=== PATIENT | female | born 1945 | race Caucasian/White ===

== ENCOUNTER 2016-11-05 13:09 | Outpatient (CLI) | payer MEDICARE, OTHER | END 2016-11-05 13:10 | disposition critical access hospital (66) | DX: R06.02 Shortness of breath (principal); R42 Dizziness and giddiness | CPT/HCPCS: A0425; A0427 ==

== ENCOUNTER 2016-11-05 13:26 | Inpatient (IN) | payer MEDICARE, OTHER ==
[2016-11-05] MEDS ORDERED: ASPIRIN CHEW 81 MG TABLET PO STA (13:29)
[2016-11-05] MEDS ORDERED: ASPIRIN CHEW 81 MG TABLET ONE (13:32)
[2016-11-05] MEDS ORDERED: MAGNESIUM OXIDE 400 MG TABLET PO ONE ×2 (15:15→15:40)
[2016-11-05] MEDS ORDERED: POTASSIUM BICARB 25 MEQ TABLET PO STA (15:15)
[2016-11-05] MEDS ORDERED: cefTRIAXone 1 GM in SODIUM CHLORIDE 0.9% MINIBAG 100 ML IV STA (15:25)
[2016-11-05] MEDS ORDERED: cefTRIAXone 1 GM VIAL ONE (15:40)
[2016-11-05] MEDS ORDERED: POTASSIUM BICARB 25 MEQ TABLET PO ONE (15:40)
[2016-11-05] MEDS ORDERED: HYDROcod/ACETAM 5/325 MG TABLET PO PRN (15:55)
[2016-11-05] MEDS ORDERED: FUROSEMIDE 40 MG/4 ML VIAL IVP STA (15:55)
[2016-11-05] MEDS ORDERED: MORPHINE 2 MG/ML SYRINGE IVP PRN (15:55)
[2016-11-05] MEDS ORDERED: FUROSEMIDE 20 MG/2 ML VIAL IVP ONE (17:04)
[2016-11-05] MEDS: WARFARIN 2.5 MG TABLET PO SCH (17:11)
[2016-11-05] MEDS: ATORVASTATIN 10 MG TABLET PO SCH (20:10)
[2016-11-05] MEDS: SODIUM CHLORIDE FLUSH 0.9% 10 ML SYRINGE IVP SCH (20:44)
[2016-11-05] MEDS ORDERED: ENOXAPARIN 100 MG/ML SYRINGE SUBQ SCH (21:00)
[2016-11-06] MEDS: SODIUM CHLORIDE FLUSH 0.9% 10 ML SYRINGE IVP SCH ×3 (07:21→22:22)
[2016-11-06] MEDS ORDERED: ENOXAPARIN 100 MG/ML SYRINGE SUBQ SCH ×2 (09:00→21:00)
[2016-11-06] MEDS ORDERED: ENOXAPARIN 40 MG/0.4 ML SYRINGE SUBQ SCH (09:00)
[2016-11-06] MEDS ORDERED: ASPIRIN 325 MG TABLET PO SCH (09:00)
[2016-11-06] MEDS ORDERED: ENOXAPARIN 80 MG/0.8 ML SYRINGE SUBQ SCH (09:00)
[2016-11-06] MEDS ORDERED: hydroCHLOROthiazide 25 MG TABLET PO SCH (09:00)
[2016-11-06] MEDS: ASPIRIN CHEW 81 MG TABLET PO SCH (09:51)
[2016-11-06] MEDS: CHOLECALCIFEROL 1,000 UNIT TABLET PO SCH (09:51)
[2016-11-06] MEDS: POLYETHYLENE GLYCOL 3350 17 GM PACKET PO SCH (09:52)
[2016-11-06] MEDS ORDERED: POTASSIUM CHLORIDE 20 MEQ TABLET PO SCH (15:00)
[2016-11-06] MEDS: WARFARIN 2.5 MG TABLET PO SCH (15:00)
[2016-11-06] MEDS: ACETAMINOPHEN 325 MG TABLET PO PRN (15:00)
[2016-11-06] MEDS: SODIUM CHLORIDE FLUSH 0.9% 10 ML SYRINGE IVP PRN (17:32)
[2016-11-06] MEDS: HEPARIN 25,000 UNITS/500 ML 500 ML IV SCH (19:51)
[2016-11-06] MEDS ORDERED: HEPARIN 5,000 UNIT/ML VIAL IVP ONE (20:00)
[2016-11-06] MEDS: ATORVASTATIN 10 MG TABLET PO SCH (22:53)
[2016-11-07] MEDS: ACETAMINOPHEN 325 MG TABLET PO PRN ×3 (00:16→21:16)
[2016-11-07] MEDS: ONDANSETRON ODT 4 MG TABLET TL PRN ×2 (00:17→21:16)
[2016-11-07] MEDS: LORazepam 0.5 MG TABLET PO PRN (05:00)
[2016-11-07] MEDS: HEPARIN 25,000 UNITS/500 ML 500 ML IV SCH ×2 (06:15→23:46)
[2016-11-07] MEDS: FUROSEMIDE 40 MG/4 ML VIAL IVP SCH ×2 (06:24→13:35)
[2016-11-07] MEDS: SODIUM CHLORIDE FLUSH 0.9% 10 ML SYRINGE IVP SCH ×3 (06:31→23:27)
[2016-11-07] MEDS: CHOLECALCIFEROL 1,000 UNIT TABLET PO SCH (08:49)
[2016-11-07] MEDS: ASPIRIN CHEW 81 MG TABLET PO SCH (08:51)
[2016-11-07] MEDS: POLYETHYLENE GLYCOL 3350 17 GM PACKET PO SCH (08:51)
[2016-11-07] MEDS: NIFEdipine ER 30 MG TABLET PO SCH (13:35)
[2016-11-07] MEDS: WARFARIN 2.5 MG TABLET PO SCH (13:35)
[2016-11-07] MEDS: SODIUM CHLORIDE FLUSH 0.9% 10 ML SYRINGE IVP PRN (13:36)
[2016-11-07] MEDS: WARFARIN 5 MG TABLET PO SCH (17:47)
[2016-11-07] MEDS: ATORVASTATIN 10 MG TABLET PO SCH (21:16)
[2016-11-08] MEDS: LORazepam 0.5 MG TABLET PO PRN (00:29)
[2016-11-08] MEDS ORDERED: MAGNESIUM SULFATE 2 GRAM 50 ML IV ONE ×2 (01:00→17:00)
[2016-11-08] MEDS ORDERED: POTASSIUM CHLORIDE 20 MEQ TABLET PO SCH (05:37)
[2016-11-08] MEDS: FUROSEMIDE 40 MG/4 ML VIAL IVP SCH ×2 (05:50→13:24)
[2016-11-08] MEDS: SODIUM CHLORIDE FLUSH 0.9% 10 ML SYRINGE IVP SCH ×3 (05:54→21:05)
[2016-11-08] MEDS: SODIUM CHLORIDE FLUSH 0.9% 10 ML SYRINGE IVP PRN (05:54)
[2016-11-08] MEDS: CHOLECALCIFEROL 1,000 UNIT TABLET PO SCH (09:12)
[2016-11-08] MEDS: ASPIRIN CHEW 81 MG TABLET PO SCH (09:13)
[2016-11-08] MEDS: NIFEdipine ER 30 MG TABLET PO SCH (09:13)
[2016-11-08] MEDS: POLYETHYLENE GLYCOL 3350 17 GM PACKET PO SCH (09:15)
[2016-11-08] MEDS: WARFARIN 5 MG TABLET PO SCH (13:24)
[2016-11-08] MEDS ORDERED: MAGNESIUM SULFATE 1 GM in SODIUM CHLORIDE 0.9% 50 ML IV ONE (16:39)
[2016-11-08] MEDS: ONDANSETRON ODT 4 MG TABLET TL PRN (17:03)
[2016-11-08] MEDS: MAGNESIUM OXIDE 400 MG TABLET PO SCH (17:03)
[2016-11-08] MEDS: BUTALB/ACETAM/CAFF 50/325/40MG TABLET PO PRN (17:03)
[2016-11-08] MEDS: ATORVASTATIN 10 MG TABLET PO SCH (21:02)
[2016-11-09] MEDS ORDERED: MAGNESIUM SULFATE 2 GRAM 50 ML IV ONE (01:00)
[2016-11-09] MEDS: SODIUM CHLORIDE FLUSH 0.9% 10 ML SYRINGE IVP PRN ×2 (01:02→06:31)
[2016-11-09] MEDS: FUROSEMIDE 40 MG/4 ML VIAL IVP SCH (06:30)
[2016-11-09] MEDS: PANTOPRAZOLE 40 MG TABLET PO SCH (06:30)
[2016-11-09] MEDS: SODIUM CHLORIDE FLUSH 0.9% 10 ML SYRINGE IVP SCH ×3 (06:31→20:32)
[2016-11-09] MEDS: MAGNESIUM OXIDE 400 MG TABLET PO SCH (08:06)
[2016-11-09] MEDS: NIFEdipine ER 30 MG TABLET PO SCH (08:34)
[2016-11-09] MEDS: CHOLECALCIFEROL 1,000 UNIT TABLET PO SCH (08:34)
[2016-11-09] MEDS: ASPIRIN CHEW 81 MG TABLET PO SCH (08:34)
[2016-11-09] MEDS: POLYETHYLENE GLYCOL 3350 17 GM PACKET PO SCH (08:34)
[2016-11-09] MEDS: ASPIRIN EC 81 MG TABLET PO SCH (08:34)
[2016-11-09] MEDS: ONDANSETRON ODT 4 MG TABLET TL PRN (12:04)
[2016-11-09] MEDS: WARFARIN 5 MG TABLET PO SCH (15:06)
[2016-11-09] MEDS: POTASSIUM CHLORIDE 20 MEQ TABLET PO SCH (17:22)
[2016-11-09] MEDS: ATORVASTATIN 10 MG TABLET PO SCH (20:32)
[2016-11-09] MEDS: BUTALB/ACETAM/CAFF 50/325/40MG TABLET PO PRN (22:13)
[2016-11-10] MEDS: SODIUM CHLORIDE FLUSH 0.9% 10 ML SYRINGE IVP SCH ×2 (06:29→14:05)
[2016-11-10] MEDS: PANTOPRAZOLE 40 MG TABLET PO SCH (06:29)
[2016-11-10] MEDS ORDERED: POTASSIUM CHLORIDE 20 MEQ TABLET PO SCH (08:00)
[2016-11-10] MEDS: NIFEdipine ER 30 MG TABLET PO SCH (09:03)
[2016-11-10] MEDS: MAGNESIUM OXIDE 400 MG TABLET PO SCH (09:03)
[2016-11-10] MEDS: POTASSIUM CHLORIDE 20 MEQ TABLET PO SCH (09:03)
[2016-11-10] MEDS: CHOLECALCIFEROL 1,000 UNIT TABLET PO SCH (09:04)
[2016-11-10] MEDS: ASPIRIN EC 81 MG TABLET PO SCH (09:04)
[2016-11-10] MEDS: ASPIRIN CHEW 81 MG TABLET PO SCH (09:05)
[2016-11-10] MEDS: POLYETHYLENE GLYCOL 3350 17 GM PACKET PO SCH (09:06)
[2016-11-10] MEDS: WARFARIN 5 MG TABLET PO SCH (14:18)
== END 2016-11-10 14:44 | disposition home or self-care (01) | DRG 312 ==
DX: R55 Syncope and collapse (principal); I50.9 Heart failure, unspecified; I50.23 Acute on chronic systolic (congestive) heart failure; N28.9 Disorder of kidney and ureter, unspecified; E78.00 Pure hypercholesterolemia, unspecified; E66.9 Obesity, unspecified; Z68.34 Body mass index [BMI] 34.0-34.9, adult; Z86.73 Personal history of transient ischemic attack (TIA), and cerebral infarction without residual deficits; I26.99 Other pulmonary embolism without acute cor pulmonale; N17.9 Acute kidney failure, unspecified; E87.3 Alkalosis; I48.91 Unspecified atrial fibrillation; I27.2 Other secondary pulmonary hypertension; E87.6 Hypokalemia; E78.5 Hyperlipidemia, unspecified; I69.398 Other sequelae of cerebral infarction; R26.89 Other abnormalities of gait and mobility; M41.9 Scoliosis, unspecified; Z66 Do not resuscitate; Z79.82 Long term (current) use of aspirin

== ENCOUNTER 2016-12-04 09:58 | Outpatient (CLI) | payer MEDICARE, OTHER | END 2016-12-04 09:59 | disposition home or self-care (01) | DX: I26.99 Other pulmonary embolism without acute cor pulmonale (principal); I10 Essential (primary) hypertension; I48.91 Unspecified atrial fibrillation ==

== ENCOUNTER 2017-02-28 08:25 | Outpatient (CLI) | payer MEDICARE, OTHER ==
[2017-02-28 13:26] LABS: BASOPHILS % (AUTO) 0.9 %; EOSINOPHILS # (AUTO) 0.1 10^3/uL (0.0-0.7); EOSINOPHILS % (AUTO) 2.7 %; HCT - HEMATOCRIT 39.7 % (37.0-47.0); HGB - HEMOGLOBIN 13.1 g/dL (12.0-16.0); LYMPHOCYTES # (AUTO) 0.9 10^3/uL (1.5-3.5); LYMPHOCYTES % (AUTO) 27.3 %; MEAN CORPUSCULAR HEMOGLOBIN 31.4 pg (27.0-31.0); MEAN CORPUSCULAR VOLUME 95.2 fL (81.0-99.0); MONOCYTES # (AUTO) 0.3 10^3/uL (0.0-1.0); MONOCYTES % (AUTO) 8.4 %; NEUTROPHILS % (AUTO) 60.7 %; RED BLOOD COUNT 4.17 10^6/uL (4.20-5.40); RED CELL DISTRIBUTION WIDTH 14.8 % (12.0-15.0); UNCORRECTED WHITE BLOOD COUNT 3.3 x10^3/uL; WHITE BLOOD COUNT 3.3 x10^3/uL (4.8-10.8)
[2017-02-28 14:20] LABS: ALBUMIN/GLOBULIN RATIO 1.2 (1.0-2.2); BILIRUBIN,TOTAL 0.8 mg/dL (0.2-1.0); BUN - BLOOD UREA NITROGEN 22 mg/dL (6-20); CALCIUM 9.3 mg/dL (8.5-10.3); CARBON DIOXIDE - CO2 34 mmol/L (21-32); CHLORIDE 99 mmol/L (101-111); CHOL/HDL RATIO 3.8 (<4.4); CHOLESTEROL 170 mg/dL; CREATININE 1.1 mg/dL (0.4-1.0); GFR - MDRD 49 (>89); GLUCOSE 102 mg/dL (70-100); HDL CHOLESTEROL 45 mg/dL; LDL/HDL RATIO 2.5 (<4.4); SODIUM 140 mmol/L (135-145); TOTAL PROTEIN 6.3 g/dL (6.7-8.2); TRIGLYCERIDES 55 mg/dL; VLDL CHOLESTEROL 11 mg/dL
== END 2017-02-28 08:26 | disposition home or self-care (01) ==
LOC: LAB.WCP 08:25
PROVIDERS: ATTEND Family Medicine
DX: I10 Essential (primary) hypertension (principal); E78.5 Hyperlipidemia, unspecified
CPT/HCPCS: 36415; 80053; 80061; 85025

== ENCOUNTER 2017-11-07 08:00 | Outpatient (CLI) | payer MEDICARE, OTHER ==
[2017-11-07 12:23] LABS: BASOPHILS % (AUTO) 0.9 %; EOSINOPHILS # (AUTO) 0.1 10^3/uL (0.0-0.7); HGB - HEMOGLOBIN 13.8 g/dL (12.0-16.0); LYMPHOCYTES # (AUTO) 1.1 10^3/uL (1.5-3.5); LYMPHOCYTES % (AUTO) 31.4 %; MEAN CORPUSCULAR HEMOGLOBIN 29.6 pg (27.0-31.0); MEAN CORPUSCULAR HGB CONC 32.4 g/dL (32.0-36.0); MEAN CORPUSCULAR VOLUME 91.3 fL (81.0-99.0); MEAN PLATELET VOLUME 7.9 fL (7.9-10.8); MONOCYTES # (AUTO) 0.3 10^3/uL (0.0-1.0); MONOCYTES % (AUTO) 8.9 %; NEUTROPHILS % (AUTO) 54.8 %; PLT - PLATELET COUNT 138 10^3/uL (130-450); RED BLOOD COUNT 4.66 10^6/uL (4.20-5.40); RED CELL DISTRIBUTION WIDTH 14.5 % (12.0-15.0); WHITE BLOOD COUNT 3.6 x10^3/uL (4.8-10.8)
[2017-11-07 12:26] LABS: CREATININE 1.4 mg/dL (0.4-1.0)
[2017-11-07 12:43] LABS: INR 2.3 (0.8-1.2); PT - PROTHROMBIN TIME 25.4 secs (9.9-12.6)
== END 2017-11-07 08:01 | disposition home or self-care (01) ==
LOC: LAB.WCP 08:00
PROVIDERS: ATTEND Specialist
DX: I27.20 Pulmonary hypertension, unspecified (principal); I48.0 Paroxysmal atrial fibrillation; I61.9 Nontraumatic intracerebral hemorrhage, unspecified; J96.11 Chronic respiratory failure with hypoxia
CPT/HCPCS: 36415; 80048; 85025; 85610; 85730

== ENCOUNTER 2018-06-26 13:17 | Outpatient (CLI) | payer MEDICARE, OTHER ==
[2018-06-26 19:08] LABS: INR 2.5 (0.8-1.2); PT - PROTHROMBIN TIME 28.2 secs (9.9-12.6)
== END 2018-06-26 13:18 ==
LOC: LAB.WCP 13:17
PROVIDERS: ATTEND Family Medicine
DX: I26.99 Other pulmonary embolism without acute cor pulmonale (principal); Z79.01 Long term (current) use of anticoagulants; I48.91 Unspecified atrial fibrillation
CPT/HCPCS: 36415; 85610

== ENCOUNTER 2018-12-30 08:00 | Outpatient (CLI) | payer MEDICARE, OTHER | END 2018-12-30 08:01 | disposition home or self-care (01) | LOC: LAB.WCP 08:00 | PROVIDERS: ATTEND Family Medicine | DX: I48.91 Unspecified atrial fibrillation (principal); I26.99 Other pulmonary embolism without acute cor pulmonale; Z79.01 Long term (current) use of anticoagulants ==

== ENCOUNTER 2019-02-03 08:00 | Outpatient (CLI) | payer MEDICARE, OTHER | END 2019-02-03 08:01 | disposition home or self-care (01) | LOC: LAB.WCP 08:00 | PROVIDERS: ATTEND Family Medicine | DX: I26.99 Other pulmonary embolism without acute cor pulmonale (principal); I48.91 Unspecified atrial fibrillation; Z79.01 Long term (current) use of anticoagulants ==

== ENCOUNTER 2019-03-26 08:00 | Outpatient (CLI) | payer MEDICARE, OTHER | END 2019-03-26 23:59 | disposition home or self-care (01) | LOC: LAB.WCP 08:00 | PROVIDERS: ATTEND Family Medicine | DX: I26.99 Other pulmonary embolism without acute cor pulmonale (principal); I48.91 Unspecified atrial fibrillation; Z79.01 Long term (current) use of anticoagulants ==

== ENCOUNTER 2019-04-15 12:00 | Outpatient (CLI) | payer MEDICARE, OTHER ==
[2019-04-15 19:00] LABS: BASOPHILS % (AUTO) 0.8 %; EOSINOPHILS % (AUTO) 1.1 %; HGB - HEMOGLOBIN 13.1 g/dL (12.0-16.0); LYMPHOCYTES # (AUTO) 0.9 10^3/uL (1.5-3.5); LYMPHOCYTES % (AUTO) 23.6 %; MEAN CORPUSCULAR HEMOGLOBIN 30.8 pg (27.0-31.0); MEAN CORPUSCULAR HGB CONC 31.3 g/dL (32.0-36.0); MEAN CORPUSCULAR VOLUME 98.6 fL (81.0-99.0); MEAN PLATELET VOLUME 11.5 fL (7.9-10.8); MONOCYTES # (AUTO) 0.2 10^3/uL (0.0-1.0); MONOCYTES % (AUTO) 5.8 %; NEUTROPHILS # (AUTO) 2.4 10^3/uL (1.5-6.6); NEUTROPHILS % (AUTO) 67.9 %; PLT - PLATELET COUNT 77 10^3/uL (130-450); RED BLOOD COUNT 4.25 10^6/uL (4.20-5.40); RED CELL DISTRIBUTION WIDTH 16.5 % (12.0-15.0); WHITE BLOOD COUNT 3.6 x10^3/uL (4.8-10.8)
[2019-04-15 19:08] LABS: ALBUMIN 3.4 g/dL (3.2-5.5); ALBUMIN/GLOBULIN RATIO 1.4 (1.0-2.2); ALKALINE PHOSPHATASE 39 IU/L (42-121); ALT ALANINE AMINOTRANSFERASE 14 IU/L (10-60); AST ASPARTATE AMINOTRANSFERASE 24 IU/L (10-42); BILIRUBIN,TOTAL 1.5 mg/dL (0.2-1.0); BUN - BLOOD UREA NITROGEN 15 mg/dL (6-20); CALCIUM 8.9 mg/dL (8.5-10.3); CARBON DIOXIDE - CO2 28 mmol/L (21-32); CHLORIDE 104 mmol/L (101-111); CHOL/HDL RATIO 2.9 (<4.4); CHOLESTEROL 123 mg/dL; CREATININE 1.2 mg/dL (0.4-1.0); GFR - MDRD 44 (>89); GLUCOSE 134 mg/dL (70-100); HDL CHOLESTEROL 42 mg/dL; LDL CHOLESTEROL,CALCULATED 65 mg/dL; LDL/HDL RATIO 1.5 (<4.4); SODIUM 139 mmol/L (135-145); TOTAL PROTEIN 5.8 g/dL (6.7-8.2); VLDL CHOLESTEROL 16 mg/dL
[2019-04-15 19:50] LABS: HB2 TOTAL 12.7 g/dL; HEMOGLOBIN A1C 0.5 g/dL; HEMOGLOBIN A1C % 5.8 % (4.6-6.2)
== END 2019-04-15 23:59 | disposition home or self-care (01) ==
LOC: LAB.WCP 12:00
PROVIDERS: ATTEND Family Medicine
DX: I10 Essential (primary) hypertension (principal); R73.02 Impaired glucose tolerance (oral); E78.5 Hyperlipidemia, unspecified; R94.6 Abnormal results of thyroid function studies
CPT/HCPCS: 36415; 80053; 80061; 83036; 83721; 84443; 85025

== ENCOUNTER 2019-05-20 02:03 | Outpatient (CLI) | payer MEDICARE, OTHER | END 2019-05-20 02:04 | disposition critical access hospital (66) | LOC: EMS 02:03 | PROVIDERS: ATTEND Surgery | DX: M25.562 Pain in left knee (principal); W18.39XA Other fall on same level, initial encounter; Y93.01 Activity, walking, marching and hiking; Y92.009 Unspecified place in unspecified non-institutional (private) residence as the place of occurrence of the external cause; Z79.01 Long term (current) use of anticoagulants | CPT/HCPCS: A0425; A0429 ==

== ENCOUNTER 2019-05-20 02:22 | Emergency (ER) | payer MEDICARE, OTHER ==
--- NOTE | 2019-05-20 02:32 | ED Physician Documentation ---
PD HPI HEAD INJURY - Stated complaint Stated Complaint: WEAKNESS/FALL - Chief complaint Chief Complaint: Neuro - History obtained from History obtained from: Patient, EMS - History of Present Illness Mechanism of head injury: Fell Where head injury occurred: Home Timing - onset: Today Location of injury: Left, Front Quality of pain: Pain, Throbbing Associated symptoms: No: LOC, AMS, Amnesia, Nausea / vomiting, Neck pain, Paresthesias, Seizures, Ear drainage, Nasal drainage Symptoms improve with: Rest Symptoms worsen with: Palpation, Movement Contributing factors: Anticoagulated Similar symptoms before: Has not had sx before Recently seen: Not recently seen - Additional information Additional information: 73 y/o female with a history of CHF, Afib and pulmonary hypertension and who is on coumadin was in her kitchen when she fell and could not get up. She called 911 for a lift assist and she was transported when she was discovered to have a head injury and she is on coumdin. She does have a bruise to the left catholic but has no LOC and no neck pain. She did injure her left knee but is able to ambulat e on this. She states that she has become weaker and she is having more trouble standing for any length of time. She has not been able to feed herself this week because of the weakness. She has discussed hospice with her PMD. She is on oxygen at home and sleeps in a recliner. Review of Systems Constitutional: reports: Myalgias, Fatigue. denies: Fever Eyes: denies: Decreased vision Ears: denies: Ear pain Nose: denies: Rhinorrhea / runny nose, Congestion Throat: denies: Sore throat Cardiac: denies: Chest pain / pressure, Palpitations Respiratory: reports: Dyspnea. denies: Cough GI: denies: Abdominal Pain, Nausea, Vomiting : denies: Dysuria, Frequency Skin: denies: Rash Musculoskeletal: reports: Extremity swelling, Pain with weight bearing. denies: Neck pain, Back pain Neurologic: reports: Generalized weakness. denies: Focal weakness, Numbness PD PAST MEDICAL HISTORY - Past Medical History Past Medical History: Yes Cardiovascular: None Respiratory: Asthma, Shortness of breath Endocrine/Autoimmune: HyPOthyroidism GI: None : None HEENT: Chronic vision loss Psych: None Musculoskeletal: Scoliosis Derm: None - Past Surgical History Past Surgical History: Yes HEENT: Tonsil/Adenoidectomy - Present Medications Home Medications: Ambulatory Orders Medication Instructions Recorded Confirmed Aspirin 325 mg PO DAILY 11/05/16 11/05/16 Cholecalciferol (Vitamin D3) 4,000 unit PO DAILY 11/05/16 11/05/16 [Vitamin D3] Multivitamin [Multiple Vitamins] 1 each PO DAILY 11/05/16 11/05/16 Simvastatin 20 mg PO QPM 11/05/16 11/05/16 hydroCHLOROthiazide 25 mg PO DAILY 11/05/16 11/05/16 [Hydrochlorothiazide] Warfarin Sodium [Coumadin] 2 mg PO DAILY PM #30 tablet 11/10/16 - Allergies Allergies/Adverse Reactions: Allergies Allergy/AdvReac Type Severity Reaction Status Date / Time Penicillins Allergy Unknown Verified 11/05/16 13:34 - Social History Does the pt smoke?: No Smoking Status: Never smoker Does the pt drink ETOH?: No Does the pt have substance abuse?: No - Immunizations Immunizations are current?: Yes PD ED PE NORMAL - Vitals Vital signs reviewed: Yes (tachy and hypotensive ) - General General: Alert and oriented X 3, No acute distress, Well developed/nourished - HEENT HEENT: Atraumatic, PERRL, EOMI - Neck Neck: Supple, no meningeal sign - Cardiac Cardiac: No murmur, Other (tachy to 100) - Respiratory Respiratory: No respiratory distress, Clear bilaterally - Abdomen Abdomen: Soft, Non tender - Back Back: No CVA TTP, No spinal TTP - Derm Derm: Normal color, Warm and dry, No rash - Extremities Extremities: No deformity, Other (There is suasage legs bilat and symetric and there is no erythema. The knee is tender both medial and lateral with some mild ligamentous laxity. 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 storage architect 2-12 intact, No motor deficit, No sensory deficit, Normal speech Eye Opening: Spontaneous Motor: Obeys Commands Verbal: Oriented GCS Score: 15 - Psych Psych: Normal mood, Normal affect Results - Vitals Vitals: Vital Signs - 24 hr 05/20/19 05/20/19 05/20/19 02:24 04:30 04:36 Temperature 36.4 C L Heart Rate 107 H 103 H 102 H Respiratory 18 25 H 18 Rate Blood Pressure 111/59 L 120/82 H O2 Saturation 94 94 96 05/20/19 05/20/19 05/20/19 06:00 07:15 07:54 Temperature 35.9 C L Heart Rate 87 95 93 Respiratory 17 24 22 Rate Blood Pressure 90/67 104/80 92/70 O2 Saturation 97 100 98 Oxygen O2 Source Nasal cannula Oxygen Flow Rate 4 - Labs Labs: Laboratory Tests 05/20/19 05/20/19 05/20/19 02:31 02:31 02:31 WBC 4.5 L RBC 4.04 L Hgb 12.4 Hct 40.0 MCV 99.0 MCH 30.7 MCHC 31.0 L RDW 17.7 H Plt Count 73 L MPV 10.3 Neut # (Auto) 3.1 Lymph # (Auto) 0.9 L Keith # (Auto) 0.3 Eos # (Auto) 0.0 Baso # (Auto) 0.0 Absolute Nucleated RBC 0.02 Nucleated RBC % 0.4 PT 24.9 H INR 2.3 H Sodium 139 Potassium 4.5 Chloride 101 Carbon Dioxide 25 Anion Gap 13.0 BUN 24 H Creatinine 1.5 H Estimated GFR (MDRD) 34 L Glucose 127 H Calcium 9.4 Total Bilirubin 1.8 H AST 37 ALT 23 Alkaline Phosphatase 37 L Total Protein 5.5 L Albumin 3.4 Globulin 2.1 Albumin/Globulin Ratio 1.6 Lipase 25 Urine Color Urine Clarity Urine pH Ur Specific Rulo Urine Protein Urine Glucose (UA) Urine Ketones Urine Occult Blood Urine Nitrite Urine Bilirubin Urine Urobilinogen Ur Leukocyte Esterase Urine RBC Urine WBC Ur Squamous Epith Cells Urine Crystals Urine Bacteria Urine Casts Urine Yeast Ur Microscopic Review Urine Culture Comments 05/20/19 04:25 WBC RBC Hgb Hct MCV MCH MCHC RDW Plt Count MPV Neut # (Auto) Lymph # (Auto) Keith # (Auto) Eos # (Auto) Baso # (Auto) Absolute Nucleated RBC Nucleated RBC % PT INR Sodium Potassium Chloride Carbon Dioxide Anion Gap BUN Creatinine Estimated GFR (MDRD) Glucose Calcium Total Bilirubin AST ALT Alkaline Phosphatase Total Protein Albumin Globulin Albumin/Globulin Ratio Lipase Urine Color DARK YELLOW Urine Clarity SL. CLOUDY Urine pH 5.5 Ur Specific Rulo >=1.030 H Urine Protein 100 H Urine Glucose (UA) NEGATIVE Urine Ketones TRACE Urine Occult Blood LARGE H Urine Nitrite NEGATIVE Urine Bilirubin NEGATIVE Urine Urobilinogen 1 (NORMAL) Ur Leukocyte Esterase TRACE H Urine RBC TNTC H Urine WBC 4-5 Ur Squamous Epith Cells FEW Squamous Urine Crystals 3-5 Calcium Oxalate Urine Bacteria Few Urine Casts 0-2 Hyaline Casts Urine Yeast PRESENT Ur Microscopic Review INDICATED Urine Culture Comments INDICATED - Rads (name of study) CT head Radiology: Prelim report reviewed (Impression: 1. No acute intercranial hemorrhage, skull fracture, or other acute intracranial abnormality.2 Mild atrophy and chronic small vessel ischemic disease. 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 She is not safe to care for herself at home. I have asked the patient to stay to talk to the social work associate this morning about help at home. She is receptive to this. Her brother who usually comes to check on her will be out of town until later this week. Departure - Departure Disposition: 01 Home, Self Care Clinical Impression: Head injury Qualifiers: Encounter type: initial encounter Qualified Code(s): S09.90XA - Unspecified injury of head, initial encounter Left knee sprain Qualifiers: Encounter type: initial encounter Involved ligament of knee: unspecified ligament Qualified Code(s): S83.92XA - Sprain of unspecified site of left knee, initial encounter Condition: Stable Instructions: ED Head Injury Closed, ED Sprain Knee Follow-Up: Haile Flores MD [Primary Care Provider] -
[2019-05-20 02:40] LABS: BASOPHILS % (AUTO) 0.9 %; EOSINOPHILS % (AUTO) 0.4 %; HGB - HEMOGLOBIN 12.4 g/dL (12.0-16.0); LYMPHOCYTES # (AUTO) 0.9 10^3/uL (1.5-3.5); LYMPHOCYTES % (AUTO) 20.9 %; MEAN CORPUSCULAR HEMOGLOBIN 30.7 pg (27.0-31.0); MEAN PLATELET VOLUME 10.3 fL (7.9-10.8); MONOCYTES # (AUTO) 0.3 10^3/uL (0.0-1.0); MONOCYTES % (AUTO) 7.4 %; NEUTROPHILS # (AUTO) 3.1 10^3/uL (1.5-6.6); NEUTROPHILS % (AUTO) 69.3 %; PLT - PLATELET COUNT 73 10^3/uL (130-450); RED BLOOD COUNT 4.04 10^6/uL (4.20-5.40); RED CELL DISTRIBUTION WIDTH 17.7 % (12.0-15.0); WHITE BLOOD COUNT 4.5 x10^3/uL (4.8-10.8)
[2019-05-20 02:42] LABS: INR 2.3 (0.8-1.2); PT - PROTHROMBIN TIME 24.9 secs (9.9-12.6)
[2019-05-20 02:50] LABS: ALBUMIN 3.4 g/dL (3.2-5.5); ALBUMIN/GLOBULIN RATIO 1.6 (1.0-2.2); BILIRUBIN,TOTAL 1.8 mg/dL (0.2-1.0); CALCIUM 9.4 mg/dL (8.5-10.3); CREATININE 1.5 mg/dL (0.4-1.0); TOTAL PROTEIN 5.5 g/dL (6.7-8.2)
--- NOTE | 2019-05-20 03:30 | CT Report ---
Reason: fall head injury on coumadin Procedure Date: 05/20/2019 Accession Number: [id number] / [id number] Procedure: CT - HEAD WO CPT Code: FULL RESULT: EXAM: CT HEAD EXAM DATE: 05/20/2019 02:43 AM. CLINICAL HISTORY: Fall head injury on Coumadin. COMPARISON: HEAD 06/11/2010 2:23 PM. TECHNIQUE: Multiaxial CT images were obtained from the foramen magnum to the vertex. Reformats: Sagittal and coronal. IV contrast: None. In accordance with CT protocol optimization, one or more of the following dose reduction techniques were utilized for this exam: automated exposure control, adjustment of mA and/or KV based on patient size, or use of iterative reconstructive technique. FINDINGS: Parenchyma: No intraparenchymal hemorrhage. No evidence of mass, midline shift, or CT findings of infarction. Esparza-white differentiation is distinct. There is mild atrophy and scattered white matter changes which are likely attributable to chronic small vessel ischemic disease. 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 Extraaxial Spaces: Normal for age. No subdural or epidural collections identified. Ventricles: Normal in size and position. Sinuses and Orbits: Imaged paranasal sinuses, orbits, and mastoids show no significant abnormality. Bones: No evidence of fracture or calvarial defect. IMPRESSION: 1. No acute intracranial hemorrhage, skull fracture, or other acute intracranial abnormality. 2. Mild atrophy and chronic small vessel ischemic disease. 3. 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 RADIA
[2019-05-20 04:35] LABS: GLUCOSE, URINE (UA) NEGATIVE (NEGATIVE); KETONES,URINE (UA) TRACE mg/dL (NEGATIVE); LEUKOCYTE ESTERASE, URINE TRACE (NEGATIVE); NITRITE,URINE NEGATIVE (NEGATIVE); OCCULT BLOOD,URINE LARGE (NEGATIVE); PH,URINE 5.5 PH (5.0-7.5); PROTEIN,URINE 100 mg/dL (NEGATIVE); UROBILINOGEN,URINE 1 (NORMAL) E.U./dL (NORMAL)
[2019-05-20 04:46] LABS: BILIRUBIN,URINE NEGATIVE (NEGATIVE); CLARITY,URINE SL. CLOUDY (CLEAR); ICTOTEST,URINE NEGATIVE
[2019-05-20 04:56] LABS: BACTERIA,URINE Few /HPF (None Seen); CASTS, URINE 0-2 Hyaline Casts /LPF; CRYSTALS,URINE 3-5 Calcium Oxalate /LPF; RBC,URINE TNTC /HPF (0-5); SQUAMOUS EPITHELIAL CELL,UR FEW Squamous (<= Few); YEAST,URINE PRESENT
[2019-05-20] MEDS ORDERED: ACETAMINOPHEN 325 MG TABLET PO STA (07:56)
[2019-05-20 11:30] VITALS: BP 108/72
== END 2019-05-20 11:30 | disposition home or self-care (01) ==
LOC: EDUNIT# → ED 02:22
DX: S09.90XA Unspecified injury of head, initial encounter (principal); S83.92XA Sprain of unspecified site of left knee, initial encounter; S00.83XA Contusion of other part of head, initial encounter; W18.30XA Fall on same level, unspecified, initial encounter; Y92.000 Kitchen of unspecified non-institutional (private) residence as the place of occurrence of the external cause; I48.91 Unspecified atrial fibrillation; Z79.01 Long term (current) use of anticoagulants; Z79.82 Long term (current) use of aspirin; I50.9 Heart failure, unspecified; I27.20 Pulmonary hypertension, unspecified; J45.909 Unspecified asthma, uncomplicated; Z99.81 Dependence on supplemental oxygen
CPT/HCPCS: 36415; 70450; 80053; 81001; 83690; 85025; 85610; 87077; 87086; 87181; 99282; 99284; A9270; 81003

== ENCOUNTER 2019-05-23 16:16 | Outpatient (CLI) | payer MEDICARE, OTHER | END 2019-05-23 16:17 | disposition critical access hospital (66) | LOC: EMS 16:16 | PROVIDERS: ATTEND Surgery | DX: R09.89 Other specified symptoms and signs involving the circulatory and respiratory systems (principal); R53.1 Weakness | CPT/HCPCS: A0425; A0429 ==

== ENCOUNTER 2019-05-23 16:41 | Inpatient (IN) | payer MEDICARE, OTHER ==
[2019-05-23] MEDS ORDERED: FUROSEMIDE 40 MG/4 ML VIAL IVP STA (17:04)
--- NOTE | 2019-05-23 17:16 | ED Physician Documentation ---
History of Present Illness - Stated complaint Stated Complaint: WEAKNESS - Chief complaint Chief Complaint: General - History obtained from History obtained from: Patient, Family - History of Present Illness Timing: How many weeks ago (1) Pain level max: 4 Pain level now: 3 Improved by: Rest, oxygen Worsened by: Walking with a walker - Additonal information Additional information: 73-year-old female, lives at home alone. She states she has become increasingly weak over the past few weeks. Over the past few days is having difficulty even making it to her bathroom without being out of breath. She is normally on 2 L of home O2. She states her legs have had increased swelling during that time as well. Had a fall a few days ago. Negative head CT. She is on warfarin. No fevers. No cough. No vomiting. Review of Systems Ten Systems: 10 systems reviewed and negative Constitutional: denies: Fever, Chills Respiratory: reports: Dyspnea. denies: Cough GI: reports: Bloody / black stool (dark tarry stools for 2-3 weeks). 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 : None HEENT: Chronic vision loss Psych: None Musculoskeletal: Scoliosis Derm: None - Past Surgical History Past Surgical History: Yes General: Colonoscopy HEENT: Tonsil/Adenoidectomy - Present Medications Home Medications: Ambulatory Orders Medication Instructions Recorded Confirmed Aspirin 325 mg PO DAILY 11/05/16 11/05/16 Cholecalciferol (Vitamin D3) 4,000 unit PO DAILY 11/05/16 05/23/19 [Vitamin D3] Multivitamin [Multiple Vitamins] 1 each PO DAILY 11/05/16 05/23/19 Simvastatin 20 mg PO QPM 11/05/16 05/23/19 Ciprofloxacin HCl [Cipro] 500 mg PO BID 05/23/19 05/23/19 Warfarin Sodium [Coumadin] 2 mg PO TUTHSA@2100 05/23/19 05/23/19 Warfarin Sodium [Coumadin] 4 mg PO SUMOWEFR@2100 05/23/19 05/23/19 hydroCHLOROthiazide [Hydrodiuril] 12.5 mg PO DAILY 05/23/19 - Allergies Allergies/Adverse Reactions: Allergies Allergy/AdvReac Type Severity Reaction Status Date / Time Penicillins Allergy Unknown Verified 05/23/19 16:46 - Social History Does the pt smoke?: No Smoking Status: Never smoker Does the pt drink ETOH?: No Does the pt have substance abuse?: No - Immunizations Immunizations are current?: Yes - POLST Patient has POLST: No PD ED PE NORMAL - Vitals Vital signs reviewed: Yes - General General: Alert and oriented X 3, No acute distress, Well developed/nourished - HEENT HEENT: PERRL, Moist mucous membranes - Neck Neck: Supple, no meningeal sign - Cardiac Cardiac: RRR, Strong equal pulses - Respiratory Respiratory: No respiratory distress, Clear bilaterally - Abdomen Abdomen: Soft, Non tender, Non distended - Rectal Rectal: Other (diffuse skin breakdown, dark stool. Hemoccult positive. QC passed) - Derm Derm: Warm and dry - Extremities Extremities: No deformity, No tenderness to palpate, Other (Diffuse pitting edema with blistering. No signs of infection Diffuse ecchymosis to the left leg.) - Neuro Neuro: Alert and oriented X 3 - Psych Psych: Normal mood, Normal affect Results - Vitals Vitals: Vital Signs - 24 hr 05/23/19 05/23/19 05/23/19 16:41 18:29 19:00 Temperature 36.6 C Heart Rate 97 97 95 Respiratory 20 21 21 Rate Blood Pressure 90/60 95/65 96/70 O2 Saturation 91 L 97 97 05/23/19 05/23/19 19:30 20:00 Temperature Heart Rate 89 95 Respiratory 17 20 Rate Blood Pressure 95/58 L 98/69 O2 Saturation 99 96 Oxygen O2 Source Nasal cannula - Labs Labs: Laboratory Tests 05/23/19 05/23/19 05/23/19 17:21 17:21 17:21 WBC 5.6 RBC 2.94 L Hgb 9.4 L Hct 29.2 L MCV 99.3 H MCH 32.0 H MCHC 32.2 RDW 18.8 H Plt Count 72 L MPV 11.1 H Neut # (Auto) 4.8 Lymph # (Auto) 0.5 L Alpine # (Auto) 0.2 Eos # (Auto) 0.0 Baso # (Auto) 0.0 Absolute Nucleated RBC 0.08 Nucleated RBC % 1.4 PT 42.2 H INR 4.0 H Sodium 137 Potassium 4.9 Chloride 98 L Carbon Dioxide 26 Anion Gap 13.0 BUN 35 H Creatinine 1.5 H Estimated GFR (MDRD) 34 L Glucose 84 Lactic Acid Calcium 9.1 Total Bilirubin 2.7 H AST 65 H ALT 58 Alkaline Phosphatase 48 B-Natriuretic Peptide Total Protein 5.1 L Albumin 3.3 Globulin 1.8 L Albumin/Globulin Ratio 1.8 Lipase 27 05/23/19 05/23/19 17:21 17:21 WBC RBC Hgb Hct MCV MCH MCHC RDW Plt Count MPV Neut # (Auto) Lymph # (Auto) Alpine # (Auto) Eos # (Auto) Baso # (Auto) Absolute Nucleated RBC Nucleated RBC % PT INR Sodium Potassium Chloride Carbon Dioxide Anion Gap BUN Creatinine Estimated GFR (MDRD) Glucose Lactic Acid 1.5 Calcium Total Bilirubin AST ALT Alkaline Phosphatase B-Natriuretic Peptide 4218 H Total Protein Albumin Globulin Albumin/Globulin Ratio Lipase - Rads (name of study) cxr Radiology: Prelim report reviewed, EMP read contemporaneously, See rad report (Bibasilar airspace consolidation could reflect aspiration or infection. ) PD MEDICAL DECISION MAKING - ED course Complexity details: reviewed old records, reviewed results, re-evaluated patient, considered differential, d/w patient, d/w family, d/w acquisition consultant ED course: 73-year-old female presents to the emergency department with significant congestive heart failure, peripheral edema, bibasilar pneumonia, UTI and s upratherapeutic INR. Also has dark tarry stools with a significant drop in her hemoglobin over the past 3 days. She was given IV Lasix, Levaquin. Her prior urine culture was reviewed. I discussed the case with the hospitalist Dr. Sequeira who accepts. This document was made in part using voice recognition software. While efforts are made to proofread this document, sound alike and grammatical errors may occur. Departure - Departure Disposition: 66 [facility] DC/Xfer Clinical Impression: Supratherapeutic INR, Peripheral edema GI bleed Qualifiers: GI bleed type/associated pathology: melena Qualified Code(s): K92.1 - Melena Acute exacerbation of CHF (congestive heart failure) Qualifiers: Heart failure type: unspecified Qualified Code(s): I50.9 - Heart failure, unspecified Aspiration pneumonia Qualifiers: Aspiration pneumonia type: unspecified Laterality: bilateral Lung location: lower lobe of lung Qualified Code(s): J69.0 - Pneumonitis due to inhalation of food and vomit UTI (urinary tract infection) Qualifiers: Urinary tract infection type: acute cystitis Hematuria presence: without hematuria Qualified Code(s): N30.00 - Acute cystitis without hematuria Condition: Stable Discharge Date/Time: 05/23/19 20:54
[2019-05-23 17:37] LABS: PT - PROTHROMBIN TIME 42.2 secs (9.9-12.6)
--- NOTE | 2019-05-23 17:38 | XRAY Report ---
Reason: dyspnea Procedure Date: 05/23/2019 Accession Number: [id number] / [id number] Procedure: XR - Chest 1 View X-Ray CPT Code: 71239 FULL RESULT: EXAM: CHEST RADIOGRAPHY EXAM DATE: 05/23/2019 05:16 PM. CLINICAL HISTORY: Dyspnea. COMPARISON: CHEST 2 VIEW PA/LAT 11/05/2016 1:33 PM. TECHNIQUE: 1 view. FINDINGS: Lungs/Pleura: Bibasilar airspace consolidation could reflect aspiration or infection. Small left base pleural effusion is seen. No pneumothorax. Mediastinum: Stable heart size and mediastinum. Other: Thoracolumbar scoliosis noted. IMPRESSION: 1. Bibasilar airspace consolidation could reflect aspiration or infection. RAD[facility]
[2019-05-23 17:45] LABS: BASOPHILS % (AUTO) 0.2 %; HGB - HEMOGLOBIN 9.4 g/dL (12.0-16.0); LYMPHOCYTES # (AUTO) 0.5 10^3/uL (1.5-3.5); LYMPHOCYTES % (AUTO) 8.2 %; MEAN CORPUSCULAR HGB CONC 32.2 g/dL (32.0-36.0); MEAN CORPUSCULAR VOLUME 99.3 fL (81.0-99.0); MEAN PLATELET VOLUME 11.1 fL (7.9-10.8); MONOCYTES # (AUTO) 0.2 10^3/uL (0.0-1.0); MONOCYTES % (AUTO) 4.1 %; NEUTROPHILS # (AUTO) 4.8 10^3/uL (1.5-6.6); NEUTROPHILS % (AUTO) 86.6 %; PLT - PLATELET COUNT 72 10^3/uL (130-450); RED BLOOD COUNT 2.94 10^6/uL (4.20-5.40); RED CELL DISTRIBUTION WIDTH 18.8 % (12.0-15.0); WHITE BLOOD COUNT 5.6 x10^3/uL (4.8-10.8)
[2019-05-23 17:46] LABS: ALBUMIN 3.3 g/dL (3.2-5.5); ALBUMIN/GLOBULIN RATIO 1.8 (1.0-2.2); BILIRUBIN,TOTAL 2.7 mg/dL (0.2-1.0); CALCIUM 9.1 mg/dL (8.5-10.3); CREATININE 1.5 mg/dL (0.4-1.0); TOTAL PROTEIN 5.1 g/dL (6.7-8.2)
[2019-05-23] MEDS ORDERED: NYSTATIN POWDER 15 GM TOP STA (17:48)
[2019-05-23] MEDS ORDERED: levoFLOXacin 750 MG/150 ML 750 MG/150 ML BAG IV ONE (18:16)
[2019-05-23] MEDS ORDERED: FUROSEMIDE 20 MG/2 ML VIAL IVP STA (21:04)
[2019-05-23 21:45] LABS: BILIRUBIN,URINE NEGATIVE (NEGATIVE); GLUCOSE, URINE (UA) NEGATIVE (NEGATIVE); KETONES,URINE (UA) NEGATIVE (NEGATIVE); LEUKOCYTE ESTERASE, URINE NEGATIVE (NEGATIVE); NITRITE,URINE NEGATIVE (NEGATIVE); OCCULT BLOOD,URINE LARGE (NEGATIVE); PROTEIN,URINE NEGATIVE (NEGATIVE); UROBILINOGEN,URINE 0.2 (NORMAL) E.U./dL (NORMAL)
[2019-05-23 21:46] LABS: CLARITY,URINE HAZY (CLEAR)
--- NOTE | 2019-05-23 21:58 | HISTORY & PHYSICAL EXAMINATION ---
Chief Complaint - Chief Complaint Chief Complaint: weakness History of Present Illness - Admitted From [facility]mitted From:: [facility] ED - History Obtained From Records Reviewed: yes History obtained from: patient - History of Present Illness HPI Comment/Other: Patient admitted on 05/23/19 around 20:00pm Patient is a 73 y/o female who presented to the ED with complain of weakness. It was to the extent that she was unable to get up and go to the bathroom. She had fallen 2 days prior as a result of he weakness and presented to the ED. Work up at the time included a CT scan of her head which was unremarkable. She has a urine culture done on 05/20/19 which grew E faecium and Klebsiella. She was prescribed antibiotic by her PCP which she is yet to start. She denied chest pain, dyspnea, abd pain, nausea or vomiting. She complained of black stools. She is on coumadin for a history of PE. In the ED today she was found to have a BNP 4000, INR 4.0 and a SBP of 90. Her hemoglobin is 9. It was 12 three days prior. She has crackles on auscultation of her lungs and significant lower extremity edema with blisters on her feet. She has bruising on her left knee which is tender to palpation. As a result of her presentation and these lab findings, she is being admitted for further treatment. She had a right and left heart cath done in October of 2017 at [facility] by Dr Iesha Fonseca which showed a LVEF of 60%, PA pressure of 55. She was diagnosed with severe pulmonary artery hypertension and nonocclusive CAD. She says she has not been to see the adoption manager again because she was not willing to try the experimental drug proposed. She also has paroxysmal atrial fibrillation History - Past Medical History Cardiovascular: reports: Congestive heart failure, High cholesterol, Pulmonary embolism, Atrial fibrillation, Other (Pulmonary Hypertension, Cor pulmonale) Respiratory: reports: Asthma, Shortness of breath Neuro: reports: CVA Endocrine/Autoimmune: reports: HyPOthyroidism GI: reports: None FILLER SIFTER HELPER: reports: None : reports: None HEENT: reports: Chronic vision loss Psych: reports: None Musculoskeletal: reports: Scoliosis Derm: reports: None MRSA Hx?: No - Past Surgical History General: reports: Colonoscopy HEENT: reports: Tonsil/Adenoidectomy - Family & Social History Family History: Mother: CVA/TIA Social History Notes: She denies alcohol, tobacco or illicit drug use. - POLST Patient has POLST: No POLST Status: DNR Meds/Allgy - Home Medications Home Medications: Ambulatory Orders Medication Instructions Recorded Confirmed Aspirin 325 mg PO DAILY 11/05/16 11/05/16 Cholecalciferol (Vitamin D3) 4,000 unit PO DAILY 11/05/16 05/23/19 [Vitamin D3] Multivitamin [Multiple Vitamins] 1 each PO DAILY 11/05/16 05/23/19 Simvastatin 20 mg PO QPM 11/05/16 05/23/19 Ciprofloxacin HCl [Cipro] 500 mg PO BID 05/23/19 05/23/19 Warfarin Sodium [Coumadin] 2 mg PO TUTHSA@209905/23/19 05/23/19 Warfarin Sodium [Coumadin] 4 mg PO [id number]@209905/23/19 05/23/19 hydroCHLOROthiazide [Hydrodiuril] 12.5 mg PO DAILY 05/23/19 - Allergies Allergies/Adverse Reactions: Allergies Allergy/AdvReac Type Severity Reaction Status Date / Time Penicillins Allergy Unknown Verified 05/23/19 16:46 Review of Systems - Constitutional Constitutional: reports: Fatigue, Weakness, Other (Poor hygiene). denies: Fever, Chills - Eyes Eyes: denies: Amaurosis, Blurred vision, Vision loss - Ears, Nose & Throat Ears, Nose & Throat: denies: Vertigo, Sore throat, Hoarseness - Cardiovascular Cariovascular: reports: Edema. denies: Irregular heart rate, Palpitations, Chest pain - Respiratory Respiratory: denies: Cough, Sputum production - Gastrointestinal Gastrointestinal: reports: Black stools. denies: Abdominal pain, Abdominal distention, Constipation, Diarrhea, Nausea, Vomiting, Coffee grounds emesis, Reflux/heartburn - Genitourinary Genitourinary: denies: Dysuria, Frequency, Urgency, Hematuria - Musculoskeletal Musculoskeletal: denies: Muscle pain, Back pain - Integumentary Integumentary: reports: Other (blisters on feet). denies: Rash, Pruritis - Neurological Neurological: reports: General weakness. denies: Headache - Psychiatric Psychiatric: denies: Depression, Anxiety - Endocrine Endocrine: denies: Polyuria, Polydypsia - Hematologic/Lymphatic Hematologic/Lymphatic: reports: Bruising (on left knee) Prior Level of Functionality: She lives alone. Usually gets around with a walker but has been unable to do so lately. Can barely walk 12 feet Exam - Vital Signs Vital Signs: Vital Signs x48h Temp Pulse Resp BP Pulse Ox 05/23/19 20:34 95 21 92/89 H 97 05/23/19 20:00 95 20 98/69 96 05/23/19 19:30 89 17 95/58 L 99 05/23/19 19:00 95 21 96/70 97 05/23/19 18:29 97 21 95/65 97 05/23/19 16:41 36.6 C 97 20 90/60 91 L - Physical Exam General Appearance: positive: Alert, Other (Disheveled, poor hygiene, appears ashen). negative: Anxious, Lethargic Eyes Bilateral: positive: Normal inspection, PERRL, EOMI ENT: positive: ENT inspection nml Neck: positive: Nml inspection, No JVD, Trachea midline Respiratory: positive: Chest non-tender, Rales, Rhonchi Cardiovascular: positive: Regular rate & rhythm, Systolic murmur, Gallop/S3 Abdomen: positive: Non-tender, No organomegaly, Nml bowel sounds, No distention. negative: Guarding, Rebound Back: positive: Nml inspection Skin: positive: Other (bruising over left knee. blister on dorsum of feet bilaterally) Extremities: positive: Pedal edema (>3+). negative: Non-tender, Full ROM Neurologic/Psychiatric: positive: Oriented x3, Mood/affect nml Conclusion/Plan - Problem List (1) Acute exacerbation of CHF (congestive heart failure) Conclusion/Plan: Patient given lasix 40mg IV in the ED. Additional 20mg IV X1 given. Will continue lasix 20mg IV bid. Daily weights. Strict I/O's Fluid and salt restriction. 2D echo Qualifiers: Heart failure type: unspecified Qualified Code(s): I50.9 - Heart failure, unspecified (2) Severe pulmonary arterial systolic hypertension Conclusion/Plan: Last cardiac cath was in October of 2017. PA pressure was 55. Not on any medication (3) Paroxysmal atrial fibrillation Conclusion/Plan: On coumadin. It is currently held due to supra-therapeutic INR (4) Elevated troponin Conclusion/Plan: Likely 2/2 CHF. Initial 66. Repeat 65 Will trend X1 more. 2D echo pending Patient currently with supratherapeutic INR at 4 (5) Supratherapeutic INR Conclusion/Plan: Will hold coumadin Will monitor INR daily. INR recheck may increase tomorrow in light of levaquin However will not actively reverse in absence of active/significant blood loss (6) GI bleed Conclusion/Plan: Upper GI bleed suspected in light of tarry black stools over 3 weeks Will hold coumadin for now. Will monitor H&H and transfuse if indicated. (For Hgb < 7) Will consult General surgery for possible EGD when INR lower. Protonix 40mg IV bid Qualifiers: GI bleed type/associated pathology: melena Qualified Code(s): K92.1 - Melena (7) Hypotension Conclusion/Plan: Suspect 2/[address] patient on pressor if MAP<60 (8) Hyperlipidemia Conclusion/Plan: On simvastatin (9) UTI (urinary tract infection) Conclusion/Plan: Culture on 05/20/19 grew E faecium and Klebsiella Will place patient on ceftriaxone Qualifiers: Urinary tract infection type: acute cystitis Hematuria presence: without hematuria Qualified Code(s): N30.00 - Acute cystitis without hematuria - Lab Results Fish Bones: 05/24/19 04:54 05/24/19 04:54 Core Measures - Anticipated LOS I expect patient to be DC'd or transferred within 96 hours.: Yes - DVT/VTE - Prophylaxis VTE/DVT Device ordered at admit?: Yes
[2019-05-23 21:59] LABS: AMORPHOUS SEDIMENT,UR Few /LPF; BACTERIA,URINE Rare /HPF (None Seen); SQUAMOUS EPITHELIAL CELL,UR RARE Squamous (<= Few)
[2019-05-23] MEDS ORDERED: ADENOSINE 6 MG/2 ML VIAL IVP ONE (22:00)
[2019-05-23] MEDS ORDERED: DEXTROSE 50% ABBOJECT 25 GM/50 ML SYRINGE IVP ONE (22:00)
[2019-05-23] MEDS: SODIUM CHLORIDE FLUSH 0.9% 10 ML SYRINGE IVP SCH (22:10)
[2019-05-24 00:44] LABS: HGB - HEMOGLOBIN 9.5 g/dL (12.0-16.0); MEAN CORPUSCULAR HEMOGLOBIN 31.7 pg (27.0-31.0); MEAN CORPUSCULAR HGB CONC 31.5 g/dL (32.0-36.0); MEAN CORPUSCULAR VOLUME 100.7 fL (81.0-99.0); MEAN PLATELET VOLUME 10.3 fL (7.9-10.8); RED CELL DISTRIBUTION WIDTH 19.2 % (12.0-15.0); WHITE BLOOD COUNT 5.4 x10^3/uL (4.8-10.8)
[2019-05-24] MEDS: ACETAMINOPHEN 325 MG TABLET PO PRN ×2 (03:05→17:50)
[2019-05-24] MEDS: SODIUM CHLORIDE FLUSH 0.9% 10 ML SYRINGE IVP PRN ×6 (04:25→09:34)
[2019-05-24] MEDS ORDERED: diltiaZEM INJ 5 MG/ML VIAL ONE ×3 (04:43→04:55)
[2019-05-24] MEDS ORDERED: SODIUM CHLORIDE FLUSH 0.9% 10 ML SYRINGE ONE ×2 (04:43→04:50)
[2019-05-24] MEDS ORDERED: MIDAZOLAM 2 MG/2 ML VIAL ONE (04:46)
[2019-05-24] MEDS ORDERED: SODIUM CHLORIDE 0.9% 500 ML ONE (05:00)
[2019-05-24 05:04] LABS: BASOPHILS % (AUTO) 0.2 %; EOSINOPHILS % (AUTO) 0.2 %; HGB - HEMOGLOBIN 9.2 g/dL (12.0-16.0); LYMPHOCYTES # (AUTO) 0.7 10^3/uL (1.5-3.5); LYMPHOCYTES % (AUTO) 11.2 %; MEAN CORPUSCULAR HEMOGLOBIN 32.1 pg (27.0-31.0); MEAN CORPUSCULAR HGB CONC 32.4 g/dL (32.0-36.0); MEAN PLATELET VOLUME 9.6 fL (7.9-10.8); MONOCYTES # (AUTO) 0.3 10^3/uL (0.0-1.0); MONOCYTES % (AUTO) 4.9 %; NEUTROPHILS # (AUTO) 4.9 10^3/uL (1.5-6.6); NEUTROPHILS % (AUTO) 82.5 %; PLT - PLATELET COUNT 62 10^3/uL (130-450); RED BLOOD COUNT 2.87 10^6/uL (4.20-5.40); RED CELL DISTRIBUTION WIDTH 19.3 % (12.0-15.0)
[2019-05-24 05:19] LABS: CALCIUM 8.8 mg/dL (8.5-10.3); CREATININE 1.5 mg/dL (0.4-1.0)
[2019-05-24] MEDS ORDERED: ADENOSINE 6 MG/2 ML VIAL IVP ONE (05:24)
[2019-05-24] MEDS ORDERED: ADENOSINE 6 MG/2 ML VIAL IVP STA ×2 (05:24→05:25)
[2019-05-24 05:27] LABS: PT - PROTHROMBIN TIME 52.3 secs (9.9-12.6)
[2019-05-24] MEDS ORDERED: diltiaZEM INJ 5 MG/ML VIAL IVP STA (05:27)
[2019-05-24] MEDS ORDERED: diltiaZEM INJ 5 MG/ML VIAL IVP ONE (05:27)
[2019-05-24] MEDS ORDERED: DEXTROSE 50% ABBOJECT 25 GM/50 ML SYRINGE IVP ONE (05:28)
[2019-05-24 05:59] LABS: MAGNESIUM 1.5 mg/dL (1.7-2.8); PHOSPHORUS 4.1 mg/dL (2.5-4.6)
[2019-05-24] MEDS ORDERED: diltiaZEM INJ 125 MG in DEXTROSE 5% 100 ML IV SCH (06:00)
[2019-05-24] MEDS ORDERED: diltiaZEM INJ 125 MG in SODIUM CHLORIDE 0.9% 100ML 100 ML IV SCH ×2 (06:00→20:27)
[2019-05-24] MEDS: FUROSEMIDE 20 MG/2 ML VIAL IVP SCH ×2 (06:17→14:07)
--- NOTE | 2019-05-24 06:24 | PROVIDER PROGRESS NOTE ---
Balance Clerk Note - Balance Clerk Note Balance Clerk Note: Around 03:30am on 05/24/19, the patient's heart rate suddenly went up to 186. It fluctuated between 150 and 180. The patient was fully awake and alert. She denied chest pain, dizziness or worsening shortness of breath. She has some baseline dyspnea for which she is on 2-3L of oxygen nasal canula at home. Her SBP was 82, with a MAP of 71. Vasalva maneuvers were done. The rhythm change from SVT to atrial fibrillation with heart rates in the 110's then sinus tachycardia then normal sinus rhythm. Around 04:00am her rhythm converted to SVT again. It was as fast at 170 but sustained around 140's. Valsalva was unsuccessful. Adenosine was given at 6mg, 12mg and 12mg intervals respectively with no change. Diltiazem 10mg IV was given. This improved her heart rate to 110's for a few minutes but then it returned to 140's. Another dose of diltiazem 10mg IV was given with a similar effect and duration. A cardizem drip was started at 10mg/hr. However it was stopped after 15 minutes when her SBP dropped to 60 with a MAP of 46. The SBP improved to the 80's with a MAP in the 60's Pacer pads were place and the patient consented to cardioversion. However when versed was about to be administered her rhythm slowed to the 80's and was sinus. The cardizem drip was maintained at 5mg/hr. Through out the episode she was alert, awake and talking. Her main complain was her hip pain. Her blood glucose was 77 so she was given 50ml of dextrose 50. This improved her blood glucose to 183. CRITICAL TIME SPENT: 120 minutes
[2019-05-24] MEDS ORDERED: MAGNESIUM SULFATE 2 GRAM 2 GM/50 ML BAG IV ONE (08:00)
[2019-05-24] MEDS: cefTRIAXone 2 GM in SODIUM CHLORIDE 0.9% MINIBAG 100 ML IV SCH (09:00)
[2019-05-24] MEDS: SODIUM CHLORIDE FLUSH 0.9% 10 ML SYRINGE IVP SCH ×3 (09:33→20:46)
[2019-05-24] MEDS: PANTOPRAZOLE 40 MG VIAL IVP SCH ×2 (09:34→20:46)
--- NOTE | 2019-05-24 17:05 | PROVIDER PROGRESS NOTE ---
Assessment/Plan - Problem List (1) Hypotension Assessment/Plan: Her BP has dropped as low as 80 and MAP is around 65. She is warm and dry however and states that she runs a low BP constantly. We will remain in the ICU, observe for GI bleeding. Will treat underlying tachydysrhythmias that could worsen her hypotension. Awaiting echo to reestablish LVEF. Only gentle diuresis until we know her LV and RV function CRITICAL CARE TIME: 30 MIN (2) GI bleed Qualifiers: GI bleed type/associated pathology: melena Qualified Code(s): K92.1 - Me coby Assessment/Plan: She reports 3 weeks of melanotic stool and thought it was from eating dark chocolate. She has never had a recent endoscopy or colonoscopy She has not had any melena since admission. Remain in the ICU, observe for GI bleed, follow H&H. Eventual general surgery consult for EGD and/or colonoscopy (3) Anemia due to GI blood loss Assessment/Plan: Follow H&H daily if it is stable or every 12 hours if she starts to drop. Consider transfusion if Hgb is under 7-8 (4) SVT (supraventricular tachycardia) Assessment/Plan: She reports having episodes of palpitations at home, has checked a finger oximeter and her heart rate is documented at 150. She had SVT here last night requiring adenosine 6 mg, 12 mg, 12 mg, diltiazem 10 mg IV boluses and is on a diltiazem drip. We will decrease the diltiazem from 5 mg to 2.5 mg overnight and start oral Cardizem tomorrow, as BP is higher. (5) Acute exacerbation of CHF (congestive heart failure) Qualifiers: Heart failure type: unspecified Qualified Code(s): I50.9 - Heart failure, unspecified Assessment/Plan: She had a coronary angina gram in November 2017 that showed normal coronary arteries, normal LVEF. Awaiting an echo to establish LV and RV function. The mildly elevated troponins in a flat pattern are consistent with her CHF. Continue with gentle diuresis for the severe leg edema with foot blisters. (6) Moderate pulmonary arterial systolic hypertension Assessment/Plan: The catheterization from November 2017 showed a PA pressure of 55 mmHg- this is consistent with moderate pulmonary hypertension. She apparently refused treatment for this (presumably revised T0). Continue with gentle diuresis. Await echo which will reestablish her PA pressure now (7) UTI (urinary tract infection) Qualifiers: Urinary tract infection type: acute cystitis Hematuria presence: without hematuria Qualified Code(s): N30.00 - Acute cystitis without hematuria Assessment/Plan: She denies any dysuria. She is on iv Ceftriaxone for management (8) Weakness generalized Assessment/Plan: This is felt to be multifactorial: due to low blood pressure, GI blood loss, significant anemia, pulmonary HTN, CHF exacerbation and infection (UTI). Each problem is being managed while here (9) Supratherapeutic INR Assessment/Plan: INR was 4, she then got Levaquin, this morning's INR is 5 because of the floor clinic alone dosing. She is now on ceftriaxone. No vitamin K has been given since there have been no further episodes of melena or any other overt bleeding. Continue to follow INR daily (10) Onychomycosis Assessment/Plan: She has several toes that are probably 1 inch long. She states she could not bend over to do nail care because it caused shortness of breath. She will need outpatient referrals to podiatry - Current Meds Current Meds: Current Medications Generic Name Dose Route Start Last Admin Trade Name Freq PRN Reason Stop Dose Admin Acetaminophen 650 mg 05/24/19 02:41 05/24/19 03:05 Tylenol PO 650 mg Q4HR PRN Administration Pain or Fever > 38C (100.4F) Furosemide 20 mg 05/24/19 06:00 05/24/19 14:07 Lasix Inj 20mg Vial IVP 20 mg BIDDIURETIC ROMAN Administration Ceftriaxone Sodium 2 gm/ 100 mls @ 200 mls/hr 05/24/19 09:00 05/24/19 09:30 Sodium Chloride IV Infused DAILY ROMAN Infusion Diltiazem HCl 125 mg/ Sodium 125 mls @ 5 mls/hr 05/24/19 06:00 05/24/19 16:50 Chloride IV 2.5 mg/hr .Q25H ROMAN 2.5 mls/hr Titration Protocol 5 MG/HR Pantoprazole Sodium 40 mg 05/24/19 09:00 05/24/19 09:34 Protonix IVP 40 mg BID ROMAN Administration Sodium Chloride 10 ml 05/24/19 01:00 05/24/19 09:33 Normal Saline Flush 0.9% IVP 10 ml 0100,0900,1700 ROMAN Administration Sodium Chloride 10 ml 05/23/19 20:02 05/24/19 09:34 Normal Saline Flush 0.9% IVP 10 ml PRN PRN Administration NEEDED PER PROVIDER ORDERS - Lab Result Fish Bone Diagrams: 05/25/19 04:35 05/25/19 04:35 - Additional Planning My Orders: My Active Orders 05/24/19 11:51 Zinc Oxide 20% Oint [Zinc Oxide] 1 applic TOP PRN PRN Subjective - Subjective Patient Reports: Feeling Better, Resting Comfortably Objective Vital Signs: Vital Signs - 24 hr 05/23/19 05/23/19 05/23/19 18:29 19:00 19:30 Temperature Heart Rate 97 95 89 Heart Rate [ Brachial] Respiratory 21 21 17 Rate Blood Pressure 95/65 96/70 95/58 L Blood Pressure [Right Brachial artery] O2 Saturation 97 97 99 05/23/19 05/23/19 05/23/19 20:00 20:34 21:00 Temperature 36.5 C Heart Rate 95 95 Heart Rate [ 101 H Brachial] Respiratory 20 21 20 Rate Blood Pressure 98/69 92/89 H Blood Pressure 92/42 L [Right Brachial artery] O2 Saturation 96 97 93 05/23/19 05/23/19 05/23/19 22:00 22:20 23:00 Temperature 36.6 C Heart Rate 95 Heart Rate [ 92 93 Brachial] Respiratory 21 20 20 Rate Blood Pressure Blood Pressure 90/63 88/55 L [Right Brachial artery] O2 Saturation 96 97 100 05/23/19 05/24/19 05/24/19 23:05 00:00 01:00 Temperature Heart Rate Heart Rate [ 91 94 92 Brachial] Respiratory 16 21 17 Rate Blood Pressure Blood Pressure 85/62 L 89/62 L 88/65 L [Right Brachial artery] O2 Saturation 97 96 99 05/24/19 05/24/19 05/24/19 02:00 03:00 03:51 Temperature 36.6 C Heart Rate Heart Rate [ 94 96 98 Brachial] Respiratory 16 15 19 Rate Blood Pressure Blood Pressure 87/60 L 82/63 L 90/66 [Right Brachial artery] O2 Saturation 98 99 98 05/24/19 05/24/19 05/24/19 04:29 04:38 05:02 Temperature 36.6 C Heart Rate Heart Rate [ 92 Brachial] Respiratory 20 Rate Blood Pressure 98/64 82/62 L Blood Pressure 86/42 L [Right Brachial artery] O2 Saturation 100 05/24/19 05/24/19 05/24/19 06:00 07:00 08:00 Temperature 36.3 C L Heart Rate Heart Rate [ 90 81 87 Brachial] Respiratory 19 18 20 Rate Blood Pressure Blood Pressure 106/61 93/58 L 88/61 L [Right Brachial artery] O2 Saturation 97 98 93 05/24/19 05/24/19 05/24/19 09:00 10:00 11:00 Temperature 36.3 C L Heart Rate Heart Rate [ 82 77 82 Brachial] Respiratory 53 H 18 18 Rate Blood Pressure Blood Pressure 95/58 L 93/61 94/52 L [Right Brachial artery] O2 Saturation 95 96 96 05/24/19 05/24/19 05/24/19 12:00 13:00 14:09 Temperature 36.2 C L Heart Rate Heart Rate [ 82 78 83 Brachial] Respiratory 21 18 18 Rate Blood Pressure Blood Pressure 100/60 91/61 83/53 L [Right Brachial artery] O2 Saturation 100 96 96 05/24/19 05/24/19 15:00 16:00 Temperature 36.3 C L Heart Rate Heart Rate [ 82 79 Brachial] Respiratory 17 19 Rate Blood Pressure Blood Pressure 88/58 L 102/57 L [Right Brachial artery] O2 Saturation 94 94 Oxygen O2 Source with humidity I&O (Last 24 Hrs): Intake and Output Totals x24h 05/22/19 05/23/19 05/24/19 23:59 23:59 23:59 Intake Total 250 800.167 Output Total 600 2177 Balance -350 -1376.833 General: Alert, Oriented x3 HEENT: Other (Emaciated) Neck: Supple Neuro: Alert Cardiovascular: Regular rate, No murmurs Respiratory: Other (Rales at bases) Abdomen: Soft Extremities: Other (3+ edema of legs above knees, and large blister R dorsum foot, and small blisters of toes, long toenails curl over tips of toes) - Results Results: Laboratory Results WBC 6.0 x10^3/uL (4.8-10.8) 05/24/19 04:54 RBC 2.87 10^6/uL (4.20-5.40) L 05/24/19 04:54 Hgb 9.2 g/dL (12.0-16.0) L 05/24/19 04:54 Hct 28.4 % (37.0-47.0) L 05/24/19 04:54 MCV 99.0 fL (81.0-99.0) 05/24/19 04:54 MCH 32.1 pg (27.0-31.0) H 05/24/19 04:54 MCHC 32.4 g/dL (32.0-36.0) 05/24/19 04:54 RDW 19.3 % (12.0-15.0) H 05/24/19 04:54 Plt Count 62 10^3/uL (130-450) L 05/24/19 04:54 MPV 9.6 fL (7.9-10.8) 05/24/19 04:54 Neut # (Auto) 4.9 10^3/uL (1.5-6.6) 05/24/19 04:54 Lymph # (Auto) 0.7 10^3/uL (1.5-3.5) L 05/24/19 04:54 [place] # (Auto) 0.3 10^3/uL (0.0-1.0) 05/24/19 04:54 Eos # (Auto) 0.0 10^3/uL (0.0-0.7) 05/24/19 04:54 Baso # (Auto) 0.0 10^3/uL (0.0-0.1) 05/24/19 04:54 Absolute Nucleated RBC 0.08 x10^3/uL 05/24/19 04:54 Nucleated RBC % 1.3 /100WBC 05/24/19 04:54 PT 52.3 secs (9.9-12.6) H 05/24/19 04:54 INR 5.0 (0.8-1.2) H* 05/24/19 04:54 Sodium 137 mmol/L (135-145) 05/24/19 04:54 Potassium 4.3 mmol/L (3.5-5.0) 05/24/19 04:54 Chloride 99 mmol/L (101-111) L 05/24/19 04:54 Carbon Dioxide 24 mmol/L (21-32) 05/24/19 04:54 Anion Gap 14.0 (6-13) H 05/24/19 04:54 BUN 35 mg/dL (6-20) H 05/24/19 04:54 Creatinine 1.5 mg/dL (0.4-1.0) H 05/24/19 04:54 Estimated GFR (MDRD) 34 (>89) L 05/24/19 04:54 Glucose 74 mg/dL (70-100) 05/24/19 04:54 Lactic Acid 1.5 mmol/L (0.5-2.2) 05/23/19 17:21 Calcium 8.8 mg/dL (8.5-10.3) 05/24/19 04:54 Phosphorus 4.1 mg/dL (2.5-4.6) 05/24/19 04:54 Magnesium 1.5 mg/dL (1.7-2.8) L 05/24/19 04:54 Total Bilirubin 2.7 mg/dL (0.2-1.0) H 05/23/19 17:21 AST 65 IU/L (10-42) H 05/23/19 17:21 ALT 58 IU/L (10-60) 05/23/19 17:21 Alkaline Phosphatase 48 IU/L (42-121) 05/23/19 17:21 Troponin I High Sens 60.1 pg/mL (2.3-14.8) H* 05/24/19 06:00 B-Natriuretic Peptide 4218 pg/mL (5-100) H 05/23/19 17:21 Total Protein 5.1 g/dL (6.7-8.2) L 05/23/19 17:21 Albumin 3.3 g/dL (3.2-5.5) 05/23/19 17:21 Globulin 1.8 g/dL (2.1-4.2) L 05/23/19 17:21 Albumin/Globulin Ratio 1.8 (1.0-2.2) 05/23/19 17:21 Lipase 27 U/L (22-51) 05/23/19 17:21 TSH 4.41 uIU/mL (0.34-5.60) 05/24/19 04:54 Urine Color LT. YELLOW 05/23/19 21:30 Urine Clarity HAZY (CLEAR) 05/23/19 21:30 Urine pH 5.0 PH (5.0-7.5) 05/23/19 21:30 Ur Specific [place] 1.010 (1.002-1.030) 05/23/19 21:30 Urine Protein NEGATIVE mg/dL (NEGATIVE) 05/23/19 21:30 Urine Glucose (UA) NEGATIVE mg/dL (NEGATIVE) 05/23/19 21:30 Urine Ketones NEGATIVE mg/dL (NEGATIVE) 05/23/19 21:30 Urine Occult Blood LARGE (NEGATIVE) H 05/23/19 21:30 Urine Nitrite NEGATIVE (NEGATIVE) 05/23/19 21:30 Urine Bilirubin NEGATIVE (NEGATIVE) 05/23/19 21:30 Urine Urobilinogen 0.2 (NORMAL) E.U./dL (NORMAL) 05/23/19 21:30 Ur Leukocyte Esterase NEGATIVE (NEGATIVE) 05/23/19 21:30 Urine RBC 6-10 /HPF (0-5) H 05/23/19 21:30 Urine WBC 0-3 /HPF (0-5) 05/23/19 21:30 Ur Squamous Epith Cells RARE Squamous (<= Few) 05/23/19 21:30 Amorphous Sediment Few /LPF 05/23/19 21:30 Urine Bacteria Rare /HPF (None Seen) 05/23/19 21:30 Ur Microscopic Review INDICATED 05/23/19 21:30 Urine Culture Comments NOT INDICATED 05/23/19 21:30 Nasal Screen MRSA (PCR) NEGATIVE (NEGATIVE) 05/23/19 21:15
[2019-05-25] MEDS: ACETAMINOPHEN 325 MG TABLET PO PRN ×2 (02:21→06:39)
[2019-05-25 04:55] LABS: BASOPHILS % (AUTO) 0.2 %; EOSINOPHILS % (AUTO) 0.2 %; HGB - HEMOGLOBIN 8.7 g/dL (12.0-16.0); LYMPHOCYTES # (AUTO) 0.6 10^3/uL (1.5-3.5); LYMPHOCYTES % (AUTO) 10.3 %; MEAN CORPUSCULAR HEMOGLOBIN 31.5 pg (27.0-31.0); MEAN CORPUSCULAR HGB CONC 32.2 g/dL (32.0-36.0); MEAN CORPUSCULAR VOLUME 97.8 fL (81.0-99.0); MONOCYTES # (AUTO) 0.3 10^3/uL (0.0-1.0); MONOCYTES % (AUTO) 6.3 %; NEUTROPHILS # (AUTO) 4.4 10^3/uL (1.5-6.6); NEUTROPHILS % (AUTO) 82.1 %; PLT - PLATELET COUNT 59 10^3/uL (130-450); RED BLOOD COUNT 2.76 10^6/uL (4.20-5.40); RED CELL DISTRIBUTION WIDTH 19.9 % (12.0-15.0); WHITE BLOOD COUNT 5.4 x10^3/uL (4.8-10.8)
[2019-05-25 04:58] LABS: PT - PROTHROMBIN TIME 53.7 secs (9.9-12.6)
[2019-05-25 05:02] LABS: CALCIUM 8.5 mg/dL (8.5-10.3); CREATININE 1.6 mg/dL (0.4-1.0)
[2019-05-25 05:15] LABS: INR 5.2 (0.8-1.2)
[2019-05-25] MEDS: SODIUM CHLORIDE FLUSH 0.9% 10 ML SYRINGE IVP PRN ×2 (06:05→09:21)
[2019-05-25] MEDS: FUROSEMIDE 20 MG/2 ML VIAL IVP SCH ×2 (06:05→14:03)
[2019-05-25] MEDS ORDERED: SODIUM CHLORIDE 0.9% 500 ML IV PRN (07:31)
[2019-05-25] MEDS ORDERED: SODIUM CHLORIDE 0.9% 500 ML ONE (07:41)
[2019-05-25] MEDS: SODIUM CHLORIDE FLUSH 0.9% 10 ML SYRINGE IVP SCH ×3 (08:47→21:20)
[2019-05-25] MEDS: cefTRIAXone 2 GM in SODIUM CHLORIDE 0.9% MINIBAG 100 ML IV SCH (08:48)
[2019-05-25] MEDS: POLYETHYLENE GLYCOL 3350 17 GM PACKET PO SCH (08:48)
[2019-05-25] MEDS: PANTOPRAZOLE 40 MG VIAL IVP SCH ×2 (09:21→21:12)
[2019-05-25] MEDS ORDERED: PHYTONADIONE 10 MG/ML AMP PO SCH (10:36)
[2019-05-25] MEDS ORDERED: CHERRY SYRUP 10 ML UDC PO SCH (10:36)
--- NOTE | 2019-05-25 11:23 | CONSULTATION NOTE ---
Referring Provider Name of Referring Provider:: Dr. Flores Consult Date: 05/25/19 Chief Complaint - Chief Complaint Chief Complaint: Gi bleed/melena History of Present Illness - Admitted From Admitted From:: ER - History Obtained From Records Reviewed: yes History obtained from: pt, records Exam Limitations: none - History of Present Illness HPI Comment/Other: 73 yo female admitted on 05/31 with weakness and dyspnea, found to be in CHF and anemic, with an approx 3 gm HGB drop compared to prior studies earlier this year. She reports an approximately 1 month hx of black, tarry stools but no hematochezia, abd pain, N/V, hx PUD or prior similar episodes. No recent wt loss. No food intolerance, heartburn/indigestion or dysphagia. She reports taking 1-2 aspirin tablets approx 4 times per week for various aches and pains, but no alcohol or tobacco or use of other NSAIDs. She is anticoagulated with warfarin for PAF and hx VTE. No prior GI evaluations other than an air contrast BE in 2011 for screening which was notable only for diverticulosis. Her INR on admission was 4 and is presently 5, despite holding her warfarin. She has had no bm since admission. Consultation was requested regarding possible endoscopic evaluation. History - Past Medical History Cardiovascular: reports: Congestive heart failure, High cholesterol, Pulmonary embolism, Atrial fibrillation, Other (Pulmonary Hypertension, Cor pulmonale) Respiratory: reports: Asthma, Shortness of breath Neuro: reports: CVA Endocrine/Autoimmune: reports: HyPOthyroidism GI: reports: None [employer] SCIENTIST: reports: None : reports: None HEENT: reports: Chronic vision loss Psych: reports: None Musculoskeletal: reports: Scoliosis Derm: reports: None MRSA Hx?: No - Past Surgical History HEENT: reports: Tonsil/Adenoidectomy - Family & Social History Family History: Mother: CVA/TIA Family History Comment/Other: Neg for GI tumors Living arrangement: At home Living Situation: Alone Social History Notes: She denies alcohol, tobacco or illicit drug use. - Substance History Use: Uses substance without health or social issues: NONE - POLST Patient has POLST: No POLST Status: DNR Meds/Allgy - Home Medications Home Medications: Ambulatory Orders Medication Instructions Recorded Confirmed Cholecalciferol (Vitamin D3) 4,000 unit PO DAILY 11/05/16 05/24/19 [Vitamin D3] Multivitamin [Multiple Vitamins] 1 each PO DAILY 11/05/16 05/24/19 Simvastatin 20 mg PO QPM 11/05/16 05/24/19 Ciprofloxacin HCl [Cipro] 500 mg PO [id number] 05/23/19 05/24/19 Warfarin Sodium [Coumadin] 2 mg PO TUTHSA@2100 05/23/19 05/24/19 Warfarin Sodium [Coumadin] 4 mg PO SUMOWEFR@2100 05/23/19 05/24/19 Acetaminophen 1,000 mg PO DAILY 05/24/19 05/24/19 Aspirin 325 mg PO 1-2XD 05/25/19 05/25/19 - Allergies Allergies/Adverse Reactions: Allergies Allergy/AdvReac Type Severity Reaction Status Date / Time Penicillins Allergy Unknown Verified 05/23/19 16:46 Review of Systems - Constitutional Constitutional: denies: Weight gain, Weight loss - Gastrointestinal Gastrointestinal: reports: Change in bowel habits, Black stools. denies: Abdominal pain, Constipation, Diarrhea, Rectal bleeding, Bloody stools, Nausea, Vomiting, Bile emesis, Adryan blood emesis, Coffee grounds emesis, Reflux/heartburn - All Other Systems All Other Systems: reports: Reviewed and negative (or covered in HPI/PMH) Exam - Vital Signs Reviewed Vital Signs: Yes Vital Signs: Vital Signs x48h Temp Pulse Resp BP Pulse Ox 05/25/19 11:00 85 24 104/71 99 05/25/19 10:00 36.3 C L 72 15 92/59 L 98 05/25/19 09:00 76 15 87/53 L 99 05/25/19 08:00 81 21 96/56 L 99 05/25/19 07:00 77 17 97/62 97 05/25/19 06:00 36.7 C 77 17 95/56 L 95 05/25/19 05:00 77 17 98/65 95 05/25/19 04:01 73 15 105/53 L 97 - Physical Exam General Appearance: positive: Alert, Mild distress (mild dyspnea at rest) Eyes Bilateral: positive: Normal inspection, Conjunctivae nml, No scleral icterus ENT: positive: ENT inspection nml, Pharynx nml, No signs of dehydration Neck: positive: Nml inspection, No JVD, Trachea midline. negative: Thyromegaly, Lymphadenopathy (R), Lymphadenopathy (L) Respiratory: positive: Chest non-tender, Breath sounds nml (anteriorly). negative: No respiratory distress (mild dyspnea at rest with speaking) Cardiovascular: positive: Other (distant heart sounds) Abdomen: positive: Non-tender, No organomegaly, Nml bowel sounds, No distention, Other (reducible nontender umbilical hernia with 4-5 cm diameter sac, 2-3 cm diameter fascial defect aprox). negative: Hepatomegaly, Splenomegaly, Mass Skin: positive: Warm, Dry. negative: Cyanosis Extremities: positive: Pedal edema (3+ pitting edema bilat pretibial). negative: Calf tenderness Neurologic/Psychiatric: positive: Oriented x3 Conclusion/Plan - Diagnosis Diagnosis: 1. GI bleed manifested by melena in a frail elderly woman using almost daily aspirin and who is anticoagulated, supra therapeutic, and thrombocytopenic. DDX includes upper gi sources such as PUD, H. pylori in fection, neoplasm, etc, as well as lower gi sources such as angiodysplasia, neoplasm, etc. 2. Thrombocytopenia of unclear etiology; consider hypersplenism. 3. Abn lfts of unclear etiology, consider right sided heart failure/passive congestion, other hepatocellular dysfunction/cirrhosis with portal hypertension, neoplasm, etc - Plan Plan: Agree with EGD for further evaluation when medically stable and optimized. IF neg, consider colonoscopy as well. Consider CT abd/pelvis for further evaluation of abn lfts and thrombocytopenia. Will follow, thanks, - Lab Results Fish Bones: 05/25/19 04:35 05/25/19 04:35 - Diagnostic Imaging Results Diagnostic Imaging Results: positive: Final report reviewed, Read independently Diagnostic Imaging Results Comments: CXR showed bibasilar infiltrates concerning for aspiration or infection.
[2019-05-25 16:37] LABS: INR 4.3 (0.8-1.2); PT - PROTHROMBIN TIME 45.4 secs (9.9-12.6)
--- NOTE | 2019-05-25 17:06 | PROVIDER PROGRESS NOTE ---
Assessment/Plan - Problem List (1) Hypotension Assessment/Plan: She runs BPs in the 90's and is warm and dry and mentating. Med adjustments are slow and gentle. Remain in the ICU due to hypotension (2) GI bleed Qualifiers: GI bleed type/associated pathology: melena Qualified Code(s): K92.1 - Melena Assessment/Plan: General surg consult for EGD requested Continue to monitor for melena and daily CBC or more frequent if she has a bleed (3) Anemia due to GI blood loss Assessment/Plan: Hemoglobin has dropped from 9.4 to 8.7, despite being 2.5 L in negative fluid ba giovany, she is not hemodiluted. Await EGD and possible colonoscopy. Empiric PPI continues (4) SVT (supraventricular tachycardia) Assessment/Plan: None in 24 hours. Will stop iv Diltiazem and start Cardizem 30 po bid. (5) Acute exacerbation of CHF (congestive heart failure) Qualifiers: Heart failure type: unspecified Qualified Code(s): I50.9 - Heart failure, unspecified Assessment/Plan: Echo pending. Gentle diuresis is planned. (6) Moderate pulmonary arterial systolic hypertension Assessment/Plan: Angina gram in November 2017 showed PA P of 55. I suspect she has cor pulmonale, this will be revealed by echo which is pending tomorrow (7) UTI (urinary tract infection) Qualifiers: Urinary tract infection type: acute cystitis Hematuria presence: without hematuria Qualified Code(s): N30.00 - Acute cystitis without hematuria Assessment/Plan: She is on empiric ceftriaxone IV. Blood cultures are negative to date. I cannot tell if urine cultures were sent before starting ceftriaxone (8) Weakness generalized Assessment/Plan: She still has marked weakness, and describes no appetite. She will need Home Health after discharge due to her marked fatigue and deconditioning, she does not leave the house. We will begin out of bed to chair but no PT yet until the EGD is done. (9) Supratherapeutic INR Assessment/Plan: The INR shanel further from 4-5 then 5.2. We will give a small dose of p.o. vitamin K, monitor INR today then daily again. EGD will be done only when she has a normal INR, therefore will start to get INR to decrease. (10) Onychomycosis Assessment/Plan: Her disheveld appearance and this finding suggest very poor hygiene, which may have been from marked fatigue. Home Health will be ordered. - Current Meds Current Meds: Current Medications Generic Name Dose Route Start Last Admin Trade Name Freq PRN Reason Stop Dose Admin Acetaminophen 650 mg 05/24/19 02:41 05/25/19 06:39 Tylenol PO 650 mg Q4HR PRN Administration Pain or Fever > 38C (100.4F) Furosemide 20 mg 05/24/19 06:00 05/25/19 14:03 Lasix Inj 20mg Vial IVP 20 mg BIDDIURETIC ROMAN Administration Ceftriaxone Sodium 2 gm/ 100 mls @ 200 mls/hr 05/24/19 09:00 05/25/19 09:18 Sodium Chloride IV Infused DAILY ROMAN Infusion Sodium Chloride 500 mls @ 0 mls/hr 05/25/19 07:31 05/25/19 16:50 Normal Saline 0.9% IV 0 mls/hr Q24H PRN Infusion TKO RATE TKO Pantoprazole Sodium 40 mg 05/24/19 09:00 05/25/19 09:21 Protonix IVP 40 mg BID ROMAN Administration Polyethylene Glycol 17 gm 05/25/19 09:00 05/25/19 08:48 Miralax PO Not Given DAILY ROMAN Sodium Chloride 10 ml 05/24/19 01:00 05/25/19 08:47 Normal Saline Flush 0.9% IVP 10 ml 0100,0900,1700 ROMAN Administration Sodium Chloride 10 ml 05/23/19 20:02 05/25/19 09:21 Normal Saline Flush 0.9% IVP 10 ml PRN PRN Administration NEEDED PER PROVIDER ORDERS - Lab Result Fish Bone Diagrams: 05/25/19 04:35 05/25/19 04:35 - Additional Planning My Orders: My Active Orders 05/25/19 Consult [General Surgery Consult] [CONS] Routine 05/25/19 07:31 Sodium Chloride 0.9% [Normal Saline 0.9%] 500 ml IV Q24H 05/25/19 21:00 diltiaZEM [Cardizem] 30 mg PO BID Subjective - Subjective Patient Reports: Feeling Better, Resting Comfortably, Other (No appetite) Nursing Reports: Other (R foot blister popped and drained, toe blisters on L foot unchanged) Objective Vital Signs: Vital Signs - 24 hr 05/24/19 05/24/19 05/24/19 18:00 19:00 20:00 Temperature 37.1 C Heart Rate [ 88 85 84 Brachial] Respiratory 19 21 19 Rate Blood Pressure 91/54 L 98/56 L 93/55 L [Right Brachial artery] O2 Saturation 95 93 93 05/24/19 05/24/19 05/24/19 21:00 22:00 23:00 Temperature Heart Rate [ 88 79 81 Brachial] Respiratory 18 17 18 Rate Blood Pressure 90/57 L 91/55 L 93/57 L [Right Brachial artery] O2 Saturation 95 94 94 05/25/19 05/25/19 05/25/19 01:00 02:00 03:00 Temperature 37.1 C Heart Rate [ 81 85 74 Brachial] Respiratory 22 16 15 Rate Blood Pressure 97/66 91/59 L 98/49 L [Right Brachial artery] O2 Saturation 94 83 L 98 05/25/19 05/25/19 05/25/19 04:01 05:00 06:00 Temperature 36.7 C Heart Rate [ 73 77 77 Brachial] Respiratory 15 17 17 Rate Blood Pressure 105/53 L 98/65 95/56 L [Right Brachial artery] O2 Saturation 97 95 95 05/25/19 05/25/19 05/25/19 07:00 08:00 09:00 Temperature Heart Rate [ 77 81 76 Brachial] Respiratory 17 21 15 Rate Blood Pressure 97/62 96/56 L 87/53 L [Right Brachial artery] O2 Saturation 97 99 99 05/25/19 05/25/19 05/25/19 10:00 11:00 12:00 Temperature 36.3 C L 36.4 C L Heart Rate [ 72 85 77 Brachial] Respiratory 15 24 21 Rate Blood Pressure 92/59 L 104/71 91/79 [Right Brachial artery] O2 Saturation 98 99 95 05/25/19 05/25/19 05/25/19 13:00 14:00 15:00 Temperature 36.4 C L Heart Rate [ 80 76 74 Brachial] Respiratory 17 14 19 Rate Blood Pressure 86/52 L 92/54 L 89/61 L [Right Brachial artery] O2 Saturation 95 95 95 05/25/19 16:00 Temperature Heart Rate [ 76 Brachial] Respiratory 18 Rate Blood Pressure 99/59 L [Right Brachial artery] O2 Saturation 94 Oxygen O2 Source with humidity I&O (Last 24 Hrs): Intake and Output Totals x24h 05/23/19 05/24/19 05/25/19 23:59 23:59 23:59 Intake Total 250 1031.375 856.292 Output Total 600 2597 1495 Balance -350 -1565.117 -819.246 General: Alert, Oriented x3 HEENT: Mucous membr. moist/pink Neck: Supple Neuro: Alert, Non Focal Cardiovascular: Regular rate, No murmurs Respiratory: No respiratory distress Abdomen: Soft Extremities: Other (2+ edema to knees, L foot blister musch smaller) - Results Results: Laboratory Results WBC 5.4 x10^3/uL (4.8-10.8) 05/25/19 04:35 RBC 2.76 10^6/uL (4.20-5.40) L 05/25/19 04:35 Hgb 8.7 g/dL (12.0-16.0) L 05/25/19 04:35 Hct 27.0 % (37.0-47.0) L 05/25/19 04:35 MCV 97.8 fL (81.0-99.0) 05/25/19 04:35 MCH 31.5 pg (27.0-31.0) H 05/25/19 04:35 MCHC 32.2 g/dL (32.0-36.0) 05/25/19 04:35 RDW 19.9 % (12.0-15.0) H 05/25/19 04:35 Plt Count 59 10^3/uL (130-450) L 05/25/19 04:35 MPV 10.0 fL (7.9-10.8) 05/25/19 04:35 Neut # (Auto) 4.4 10^3/uL (1.5-6.6) 05/25/19 04:35 Lymph # (Auto) 0.6 10^3/uL (1.5-3.5) L 05/25/19 04:35 [place] # (Auto) 0.3 10^3/uL (0.0-1.0) 05/25/19 04:35 Eos # (Auto) 0.0 10^3/uL (0.0-0.7) 05/25/19 04:35 Baso # (Auto) 0.0 10^3/uL (0.0-0.1) 05/25/19 04:35 Absolute Nucleated RBC 0.07 x10^3/uL 05/25/19 04:35 Nucleated RBC % 1.3 /100WBC 05/25/19 04:35 PT 45.4 secs (9.9-12.6) H 05/25/19 16:05 INR 4.3 (0.8-1.2) H 05/25/19 16:05 Sodium 140 mmol/L (135-145) 05/25/19 04:35 Potassium 3.5 mmol/L (3.5-5.0) 05/25/19 04:35 Chloride 102 mmol/L (101-111) 05/25/19 04:35 Carbon Dioxide 28 mmol/L (21-32) 05/25/19 04:35 Anion Gap 10.0 (6-13) 05/25/19 04:35 BUN 34 mg/dL (6-20) H 05/25/19 04:35 Creatinine 1.6 mg/dL (0.4-1.0) H 05/25/19 04:35 Estimated GFR (MDRD) 32 (>89) L 05/25/19 04:35 Glucose 106 mg/dL (70-100) H 05/25/19 04:35 Lactic Acid 1.5 mmol/L (0.5-2.2) 05/23/19 17:21 Calcium 8.5 mg/dL (8.5-10.3) 05/25/19 04:35 Phosphorus 4.1 mg/dL (2.5-4.6) 05/24/19 04:54 Magnesium 1.9 mg/dL (1.7-2.8) 05/25/19 04:35 Total Bilirubin 2.7 mg/dL (0.2-1.0) H 05/23/19 17:21 AST 65 IU/L (10-42) H 05/23/19 17:21 ALT 58 IU/L (10-60) 05/23/19 17:21 Alkaline Phosphatase 48 IU/L (42-121) 05/23/19 17:21 Troponin I High Sens 60.1 pg/mL (2.3-14.8) H* 05/24/19 06:00 B-Natriuretic Peptide 4218 pg/mL (5-100) H 05/23/19 17:21 Total Protein 5.1 g/dL (6.7-8.2) L 05/23/19 17:21 Albumin 3.3 g/dL (3.2-5.5) 05/23/19 17:21 Globulin 1.8 g/dL (2.1-4.2) L 05/23/19 17:21 Albumin/Globulin Ratio 1.8 (1.0-2.2) 05/23/19 17:21 Lipase 27 U/L (22-51) 05/23/19 17:21 TSH 4.41 uIU/mL (0.34-5.60) 05/24/19 04:54 Urine Color LT. YELLOW 05/23/19 21:30 Urine Clarity HAZY (CLEAR) 05/23/19 21:30 Urine pH 5.0 PH (5.0-7.5) 05/23/19 21:30 Ur Specific [place] 1.010 (1.002-1.030) 05/23/19 21:30 Urine Protein NEGATIVE mg/dL (NEGATIVE) 05/23/19 21:30 Urine Glucose (UA) NEGATIVE mg/dL (NEGATIVE) 05/23/19 21:30 Urine Ketones NEGATIVE mg/dL (NEGATIVE) 05/23/19 21:30 Urine Occult Blood LARGE (NEGATIVE) H 05/23/19 21:30 Urine Nitrite NEGATIVE (NEGATIVE) 05/23/19 21:30 Urine Bilirubin NEGATIVE (NEGATIVE) 05/23/19 21:30 Urine Urobilinogen 0.2 (NORMAL) E.U./dL (NORMAL) 05/23/19 21:30 Ur Leukocyte Esterase NEGATIVE (NEGATIVE) 05/23/19 21:30 Urine RBC 6-10 /HPF (0-5) H 05/23/19 21:30 Urine WBC 0-3 /HPF (0-5) 05/23/19 21:30 Ur Squamous Epith Cells RARE Squamous (<= Few) 05/23/19 21:30 Amorphous Sediment Few /LPF 05/23/19 21:30 Urine Bacteria Rare /HPF (None Seen) 05/23/19 21:30 Ur Microscopic Review INDICATED 05/23/19 21:30 Urine Culture Comments NOT INDICATED 05/23/19 21:30 Nasal Screen MRSA (PCR) NEGATIVE (NEGATIVE) 05/23/19 21:15
[2019-05-25] MEDS ORDERED: diltiaZEM 30 MG TABLET PO SCH (21:00)
[2019-05-25] MEDS ORDERED: diltiaZEM INJ 5 MG/ML VIAL IVP ONE (21:13)
[2019-05-25] MEDS ORDERED: diltiaZEM INJ 5 MG/ML VIAL ONE (21:22)
--- NOTE | 2019-05-25 23:23 | CT Report ---
Reason: significant bruise on left hip/thigh. INR 4. Procedure Date: 05/25/2019 Accession Number: [id number] / [id number] Procedure: CT - LOWER EXTREMITY WO - LT CPT Code: FULL RESULT: EXAM: LEFT LOWER EXTREMITY CT WITHOUT CONTRAST EXAM DATE: 05/25/2019 10:53 PM. CLINICAL HISTORY: Significant bruise on left hip/thigh. INR 4. COMPARISON: None. TECHNIQUE: Thin-section axial images were acquired of the lower extremity from the lower abdomen to the proximal calf without contrast. Post-processing: Coronal and sagittal reformats. Other: None. In accordance with CT protocol optimization, one or more of the following dose reduction techniques were utilized for this exam: automated exposure control, adjustment of mA and/or KV based on patient size, or use of iterative reconstructive technique. FINDINGS: Bones: Osteopenia. No acute fracture seen. No focal area of bone destruction. Bilateral L5 pars defects. Joints: No dislocation seen. Mild to moderate degenerative joint disease in the hip and knee. Degenerative changes in the lower lumbar spine. Musculature: Atrophy consistent with age. Other: Umbilical hernia containing fat. Extensive stranding in the subcutaneous tissues of the lower abdomen, hip, and thigh. Focal subcutaneous hematoma at the anterior and lateral aspects of the knee measuring 9.4 x 2.4 cm in cross section. Craniocaudal extent is at least 13.4 cm but the inferior extent is not completely imaged. Vascular calcifications are noted. Calcified stones are seen in the gallbladder. Decompressed urinary bladder with Wu catheter. IMPRESSION: 1. Focal hematoma at the knee measuring at least 9.4 x 2.4 x 13.4 cm. 2. Extensive subcutaneous stranding in the lower abdominal wall, hip, and thigh. Most of this probably represents edema but there could be some contusion as well. 3. Osteopenia. No acute osseous abnormality seen. RADIA
[2019-05-26 00:04] LABS: HGB - HEMOGLOBIN 9.6 g/dL (12.0-16.0); MEAN CORPUSCULAR HEMOGLOBIN 32.3 pg (27.0-31.0); MEAN CORPUSCULAR HGB CONC 32.4 g/dL (32.0-36.0); MEAN CORPUSCULAR VOLUME 99.7 fL (81.0-99.0); MEAN PLATELET VOLUME 10.9 fL (7.9-10.8); RED BLOOD COUNT 2.97 10^6/uL (4.20-5.40); RED CELL DISTRIBUTION WIDTH 20.4 % (12.0-15.0); WHITE BLOOD COUNT 5.4 x10^3/uL (4.8-10.8)
[2019-05-26] MEDS ORDERED: diltiaZEM INJ 5 MG/ML VIAL IVP ONE ×2 (05:27→06:45)
[2019-05-26] MEDS: ZINC OXIDE 20% OINT 30 GM TUBE TOP PRN ×2 (05:30→21:00)
[2019-05-26] MEDS: SODIUM CHLORIDE FLUSH 0.9% 10 ML SYRINGE IVP PRN ×2 (05:30→06:05)
[2019-05-26] MEDS: NYSTATIN POWDER 15 GM TOP SCH ×2 (05:30→21:00)
[2019-05-26 05:58] LABS: BASOPHILS % (AUTO) 0.2 %; EOSINOPHILS % (AUTO) 0.2 %; HGB - HEMOGLOBIN 9.6 g/dL (12.0-16.0); LYMPHOCYTES # (AUTO) 0.5 10^3/uL (1.5-3.5); LYMPHOCYTES % (AUTO) 10.7 %; MEAN CORPUSCULAR HGB CONC 32.1 g/dL (32.0-36.0); MEAN CORPUSCULAR VOLUME 99.7 fL (81.0-99.0); MEAN PLATELET VOLUME 9.7 fL (7.9-10.8); MONOCYTES # (AUTO) 0.3 10^3/uL (0.0-1.0); MONOCYTES % (AUTO) 5.7 %; NEUTROPHILS # (AUTO) 3.8 10^3/uL (1.5-6.6); NEUTROPHILS % (AUTO) 81.7 %; PLT - PLATELET COUNT 60 10^3/uL (130-450); RED CELL DISTRIBUTION WIDTH 20.6 % (12.0-15.0); WHITE BLOOD COUNT 4.6 x10^3/uL (4.8-10.8)
[2019-05-26 05:59] LABS: INR 2.1 (0.8-1.2); PT - PROTHROMBIN TIME 23.3 secs (9.9-12.6)
[2019-05-26] MEDS: FUROSEMIDE 20 MG/2 ML VIAL IVP SCH ×2 (06:04→14:06)
[2019-05-26 06:07] LABS: CALCIUM 8.2 mg/dL (8.5-10.3); CREATININE 1.6 mg/dL (0.4-1.0); MAGNESIUM 1.7 mg/dL (1.7-2.8)
[2019-05-26] MEDS: MAGNESIUM OXIDE 400 MG TABLET PO SCH ×2 (06:32→14:05)
[2019-05-26] MEDS: POTASSIUM CHLORIDE 20 MEQ TABLET PO SCH ×2 (06:32→12:07)
[2019-05-26] MEDS ORDERED: diltiaZEM 30 MG TABLET PO SCH (09:00)
[2019-05-26] MEDS: SODIUM CHLORIDE FLUSH 0.9% 10 ML SYRINGE IVP SCH ×3 (09:33→23:07)
[2019-05-26] MEDS: cefTRIAXone 2 GM in SODIUM CHLORIDE 0.9% MINIBAG 100 ML IV SCH (09:33)
[2019-05-26] MEDS: PANTOPRAZOLE 40 MG VIAL IVP SCH (09:34)
[2019-05-26] MEDS: POLYETHYLENE GLYCOL 3350 17 GM PACKET PO SCH (11:57)
[2019-05-26] MEDS ORDERED: DIGOXIN 500 MCG/2 ML AMP IVP SCH (12:00)
[2019-05-26] MEDS ORDERED: diltiaZEM INJ 125 MG in DEXTROSE 5% 100 ML IV SCH (12:00)
--- NOTE | 2019-05-26 12:23 | PROVIDER PROGRESS NOTE ---
Assessment/Plan - Problem List (1) Cor pulmonale, chronic Assessment/Plan: This patient had an angiogram in November 2017 and was told she had pulmonary hypertension with PA press of 55 mmHg. There are no reports of her RV size or function from 1 year ago. The Echo that was done today, shows a very dilated RV with very poor RV function and severe pulmonary hypertension with PA pressure 117 mmHg. She has likely had worsening pulmonary hypertension over this past year and developed cor pulmonale leading to leg edema. Her low blood pressure indicates she has poor RV cardiac output to give her adequate LV preload, and these people are very fluid sensitive. Will continue gentle po diuresis and stop IV bid Lasix. Continue with leg elevation to help with peripheral edema. Pulm HTN along with hypotension makes her a high anesthesia risk for conscious sedation: Her ASA would be 4-5. I called Dr. Roberto Dickson and told him about this new diagnosis and that she would be high risk to undergo EGD (see below). I discussed with her, her prognosis of 1 year or less with the current RV failure and severe pulmonary hypertension. She would like Palliative Care consult, eventual Hospice consult, no transfers f or any aggressive interventions. Her POLST was reviewed and she wants to leave it the same which states DNR/DNI, "comfort measures" except IV treatment is okay (2) Severe pulmonary arterial systolic hypertension Assessment/Plan: As above (3) SVT (supraventricular tachycardia) Assessment/Plan: Atrial tachy-dysrhythmias are very common in pulmonary hypertension patients. The low-dose Cardizem 30 mg p.o. twice daily is not suppressing her atrial tachycardia. She received Diltiazem 10 mg IV pushes x3 last night. Will resume IV Cardizem drip (again) at either 2.5 - 5 mg, in order to regain heart rate control. Will also start Digoxin for rate control since her blood pressure is so low; Dig 250 mcg iv load (not more due to CKD), and then Dig 125 mcg po daily, starting tomorrow. Check a Dig level on Wed a.m. (4) Hypotension Assessment/Plan: As in #1 (5) GI bleed Qualifiers: GI bleed type/associated pathology: melena Qualified Code(s): K92.1 - Melena Assessment/Plan: She Admitted to 3 weeks of black bowel movements on review of systems at admission. She did have her first BM since admission, it was a brown bowel movement this morning. Guaiac test was ordered and it is guaiac positive. An EGD and colonoscopy would require conscious sedation and that is probably excessively high risk for her because of her low blood pressure and severe p ulmonary hypertension. The EGD is requested to be canceled, I spoke to Dr. Roberto Dickson about this and he agrees. The INR has now decreased to 2.0 and Coumadin will not be restarted We will treat empirically with Protonix. (6) Anemia due to GI blood loss Assessment/Plan: Her hemoglobin has stabilized. There have been no melanotic or maroon stools since here. She would get a transfusion if her hemoglobin goes below 7. She has been typed and screened for 2 units of blood on hold in the blood bank here. Will start Iron in a multivitamin with iron supplement (7) UTI (urinary tract infection) Qualifiers: Urinary tract infection type: acute cystitis Hematuria presence: without hematuria Qualified Code(s): N30.00 - Acute cystitis without hematuria Assessment/Plan: She is on empiric ceftriaxone IV. Awaiting urine and blood cultures (8) CKD (chronic kidney disease) Assessment/Plan: She runs creat of 1.5 - 1.6, therefore all her med adjustments are renally dosed and diuresis gently was planned. (9) Weakness generalized Assessment/Plan: Related to #1, #4 and #5. She had fallen 1 week before this current admission due to weakness (I suspect orthostasis), and has a large bruise of the left thigh, which was imaged yesterday. Will start to get her OOB to chair and PT tomorrow. She lives alone and has no assistance or caregivers. A social work consult was ordered. (10) Traumatic ecchymosis of thigh Qualifiers: Laterality: left Assessment/Plan: A CT was done yesterday and showed soft tissue hematoma, no knee involvement. She may need pain meds as she starts PT. (11) Supratherapeutic INR Assessment/Plan: She had been on chronic Coumadin, presented with an INR 4.0, this shanel to 5 than 5.2 because of receiving a aung quinolone. She needed vitamin K p.o. 5 mg yesterday The INR is now normal. No more Coumadin will be used because of her GI bleed (12) Onychomycosis Assessment/Plan: When I discussed her poor prognosis, she stated "all I want is for my toenails to be cut because they get caught in my carpet" The ICU nurse told me that there is a local elementary school director who comes to cut toen ails. I ordered a consult from Dr. Ferrari. Her office was called and stated that the doctor would not come in to do the procedure. - Current Meds Current Meds: Current Medications Generic Name Dose Route Start Last Admin Trade Name Freq PRN Reason Stop Dose Admin Acetaminophen 650 mg 05/24/19 02:41 05/25/19 06:39 Tylenol PO 650 mg Q4HR PRN Administration Pain or Fever > 38C (100.4F) Furosemide 20 mg 05/24/19 06:00 05/26/19 06:04 Lasix Inj 20mg Vial IVP 20 mg BIDDIURETIC ROMAN Administration Ceftriaxone Sodium 2 gm/ 100 mls @ 200 mls/hr 05/24/19 09:00 05/26/19 09:33 Sodium Chloride IV 200 mls/hr DAILY ROMAN Administration Sodium Chloride 500 mls @ 0 mls/hr 05/25/19 07:31 05/25/19 16:50 Normal Saline 0.9% IV 0 mls/hr Q24H PRN Infusion TKO RATE TKO Magnesium Oxide 400 mg 05/26/19 07:00 05/26/19 06:32 Mag Ox PO 05/26/19 13:01 400 mg Q6H ROMAN Administration Protocol Multi-Ingredient Ointment 1 applic 05/24/19 11:51 05/26/19 05:30 Zinc Oxide TOP 1 applic PRN PRN Administration Skin Care Nystatin 1 applic 05/26/19 09:00 05/26/19 05:30 Nystop TOP 1 applic BID ROMAN Administration Pantoprazole Sodium 40 mg 05/24/19 09:00 05/26/19 09:34 Protonix IVP 40 mg BID ROMAN Administration Polyethylene Glycol 17 gm 05/25/19 09:00 05/26/19 11:57 Miralax PO Not Given DAILY ROMAN Sodium Chloride 10 ml 05/24/19 01:00 05/26/19 09:33 Normal Saline Flush 0.9% IVP 10 ml 0100,0900,1700 ROMAN Administration Sodium Chloride 10 ml 05/23/19 20:02 05/26/19 06:05 Normal Saline Flush 0.9% IVP 10 ml PRN PRN Administration NEEDED PER PROVIDER ORDERS - Lab Result Fish Bone Diagrams: 05/26/19 04:54 05/26/19 14:08 - Additional Planning My Orders: My Active Orders 05/26/19 Consult [Palliative Care Consult] [CONS] Routine Guiaic [OCCULT BLOOD IN PAT. SINGLE] [RAPID] Urgent 05/26/19 07:00 Magnesium Oxide [Mag Ox] 400 mg PO Q6H 05/26/19 12:00 Dextrose 5% [D5w] 100 ml diltiaZEM INJ [Cardizem Inj] 125 mg IV 5 mg/hr Digoxin Inj [Lanoxin Inj] 250 mcg IVP DAILY 05/27/19 05:00 MAGNESIUM [CHEM] DAILYLAB PHOSPHORUS [CHEM] DAILYLAB 05/28/19 05:00 MAGNESIUM [CHEM] DAILYLAB PHOSPHORUS [CHEM] DAILYLAB Subjective - Subjective Patient Reports: Fatigue Objective Vital Signs: Vital Signs - 24 hr 05/25/19 05/25/19 05/25/19 13:00 14:00 15:00 Temperature 36.4 C L Heart Rate Heart Rate [ 80 76 74 Brachial] Heart Rate [ Monitoring electrodes] Respiratory 17 14 19 Rate Blood Pressure Blood Pressure 86/52 L 92/54 L 89/61 L [Right Brachial artery] O2 Saturation 95 95 95 05/25/19 05/25/19 05/25/19 16:00 17:00 19:00 Temperature Heart Rate Heart Rate [ 76 80 86 Brachial] Heart Rate [ Monitoring electrodes] Respiratory 18 16 16 Rate Blood Pressure Blood Pressure 99/59 L 106/55 L 92/63 [Right Brachial artery] O2 Saturation 94 94 94 05/25/19 05/25/19 05/25/19 19:20 20:00 21:00 Temperature 36.5 C Heart Rate Heart Rate [ 20 L Brachial] Heart Rate [ 89 84 84 Monitoring electrodes] Respiratory 23 16 Rate Blood Pressure Blood Pressure 97/60 96/60 [Right Brachial artery] O2 Saturation 95 05/25/19 05/25/19 05/25/19 21:12 21:19 22:00 Temperature Heart Rate Heart Rate [ Brachial] Heart Rate [ 125 H Monitoring electrodes] Respiratory 17 Rate Blood Pressure 98/84 H 90/66 Blood Pressure 88/62 L [Right Brachial artery] O2 Saturation 05/25/19 05/26/19 05/26/19 23:00 00:00 01:00 Temperature 37.0 C Heart Rate Heart Rate [ Brachial] Heart Rate [ 85 91 79 Monitoring electrodes] Respiratory 20 18 16 Rate Blood Pressure Blood Pressure 89/58 L 97/52 L 91/59 L [Right Brachial artery] O2 Saturation 95 95 95 05/26/19 05/26/19 05/26/19 02:00 02:05 02:10 Temperature Heart Rate 74 69 Heart Rate [ Brachial] Heart Rate [ 71 Monitoring electrodes] Respiratory 15 15 14 Rate Blood Pressure Blood Pressure 84/57 L [Right Brachial artery] O2 Saturation 98 05/26/19 05/26/19 05/26/19 02:15 02:20 02:25 Temperature Heart Rate 68 70 70 Heart Rate [ Brachial] Heart Rate [ Monitoring electrodes] Respiratory 13 15 14 Rate Blood Pressure Blood Pressure [Right Brachial artery] O2 Saturation 05/26/19 05/26/19 05/26/19 02:30 02:35 02:40 Temperature Heart Rate 69 71 69 Heart Rate [ Brachial] Heart Rate [ Monitoring electrodes] Respiratory 14 14 14 Rate Blood Pressure Blood Pressure [Right Brachial artery] O2 Saturation 05/26/19 05/26/19 05/26/19 02:45 02:50 02:55 Temperature Heart Rate 69 66 69 Heart Rate [ Brachial] Heart Rate [ Monitoring electrodes] Respiratory 14 13 14 Rate Blood Pressure Blood Pressure [Right Brachial artery] O2 Saturation 05/26/19 05/26/19 05/26/19 03:00 03:01 03:05 Temperature Heart Rate 70 72 68 Heart Rate [ Brachial] Heart Rate [ 69 Monitoring electrodes] Respiratory 16 15 13 Rate Blood Pressure 91/55 L Blood Pressure 91/55 L [Right Brachial artery] O2 Saturation 98 05/26/19 05/26/19 05/26/19 03:10 03:15 03:20 Temperature Heart Rate 73 68 67 Heart Rate [ Brachial] Heart Rate [ Monitoring electrodes] Respiratory 14 13 14 Rate Blood Pressure Blood Pressure [Right Brachial artery] O2 Saturation 05/26/19 05/26/19 05/26/19 03:25 03:30 03:35 Temperature Heart Rate 69 68 80 Heart Rate [ Brachial] Heart Rate [ Monitoring electrodes] Respiratory 14 14 20 Rate Blood Pressure Blood Pressure [Right Brachial artery] O2 Saturation 05/26/19 05/26/19 05/26/19 03:40 03:45 03:50 Temperature Heart Rate 79 78 77 Heart Rate [ Brachial] Heart Rate [ Monitoring electrodes] Respiratory 22 18 22 Rate Blood Pressure Blood Pressure [Right Brachial artery] O2 Saturation 05/26/19 05/26/19 05/26/19 03:55 04:00 04:01 Temperature 36.3 C L Heart Rate 77 74 77 Heart Rate [ Brachial] Heart Rate [ 75 Monitoring electrodes] Respiratory 17 20 22 Rate Blood Pressure 92/63 Blood Pressure 92/63 [Right Brachial artery] O2 Saturation 93 05/26/19 05/26/19 05/26/19 04:05 04:10 04:15 Temperature Heart Rate 72 78 71 Heart Rate [ Brachial] Heart Rate [ Monitoring electrodes] Respiratory 16 20 14 Rate Blood Pressure Blood Pressure [Right Brachial artery] O2 Saturation 05/26/19 05/26/19 05/26/19 04:20 04:25 04:30 Temperature Heart Rate 76 74 73 Heart Rate [ Brachial] Heart Rate [ Monitoring electrodes] Respiratory 20 16 17 Rate Blood Pressure Blood Pressure [Right Brachial artery] O2 Saturation 05/26/19 05/26/19 05/26/19 04:35 04:40 04:45 Temperature Heart Rate 72 72 72 Heart Rate [ Brachial] Heart Rate [ Monitoring electrodes] Respiratory 17 12 18 Rate Blood Pressure Blood Pressure [Right Brachial artery] O2 Saturation 05/26/19 05/26/19 05/26/19 04:50 04:55 05:00 Temperature Heart Rate 122 H 107 H 112 H Heart Rate [ Brachial] Heart Rate [ 79 Monitoring electrodes] Respiratory 18 16 17 Rate Blood Pressure Blood Pressure 95/69 [Right Brachial artery] O2 Saturation 92 05/26/19 05/26/19 05/26/19 05:01 05:05 05:10 Temperature Heart Rate 119 H 122 H 128 H Heart Rate [ Brachial] Heart Rate [ Monitoring electrodes] Respiratory 16 17 17 Rate Blood Pressure 95/69 Blood Pressure [Right Brachial artery] O2 Saturation 05/26/19 05/26/19 05/26/19 05:15 05:20 05:25 Temperature Heart Rate 103 H 160 H 152 H Heart Rate [ Brachial] Heart Rate [ Monitoring electrodes] Respiratory 19 24 16 Rate Blood Pressure Blood Pressure [Right Brachial artery] O2 Saturation 05/26/19 05/26/19 05/26/19 05:26 05:27 05:28 Temperature Heart Rate 152 H 153 H 142 H Heart Rate [ Brachial] Heart Rate [ Monitoring electrodes] Respiratory 20 20 18 Rate Blood Pressure 91/70 80/71 L Blood Pressure [Right Brachial artery] O2 Saturation 05/26/19 05/26/19 05/26/19 05:29 05:30 05:31 Temperature Heart Rate 133 H 112 H 126 H Heart Rate [ Brachial] Heart Rate [ Monitoring electrodes] Respiratory 15 16 21 Rate Blood Pressure 106/63 Blood Pressure [Right Brachial artery] O2 Saturation 05/26/19 05/26/19 05/26/19 06:00 06:50 07:00 Temperature Heart Rate Heart Rate [ Brachial] Heart Rate [ 117 H 126 H Monitoring electrodes] Respiratory 18 18 Rate Blood Pressure 96/56 L Blood Pressure 92/59 L 98/54 L [Right Brachial artery] O2 Saturation 97 96 05/26/19 05/26/19 05/26/19 08:00 09:00 09:33 Temperature 36.4 C L Heart Rate Heart Rate [ Brachial] Heart Rate [ 127 H 121 H Monitoring electrodes] Respiratory 19 16 Rate Blood Pressure 99/64 Blood Pressure 94/55 L 99/64 [Right Brachial artery] O2 Saturation 97 98 05/26/19 05/26/19 05/26/19 10:00 11:00 12:00 Temperature Heart Rate Heart Rate [ Brachial] Heart Rate [ 137 H 108 H 109 H Monitoring electrodes] Respiratory 24 16 20 Rate Blood Pressure Blood Pressure 92/52 L 91/50 L 92/67 [Right Brachial artery] O2 Saturation 100 99 99 Oxygen O2 Source Nasal cannula I&O (Last 24 Hrs): Intake and Output Totals x24h 05/24/19 05/25/19 05/26/19 23:59 23:59 23:59 Intake Total 0954.929 8909.292 700 Output Total 2597 2000 835 Balance -5876.534 -163.708 -589 General: Alert, Oriented x3 HEENT: Mucous membr. moist/pink Neck: Supple Neuro: Non Focal Cardiovascular: Other (Tachy) Respiratory: No respiratory distress, Breath sounds nml Abdomen: Soft Extremities: Other (2+ edema of shins, foot and toe blisters, L lateral thigh bruise approx 20 in long) - Results Results: Laboratory Results WBC 4.6 x10^3/uL (4.8-10.8) L 05/26/19 04:54 RBC 3.00 10^6/uL (4.20-5.40) L 05/26/19 04:54 Hgb 9.6 g/dL (12.0-16.0) L 05/26/19 04:54 Hct 29.9 % (37.0-47.0) L 05/26/19 04:54 MCV 99.7 fL (81.0-99.0) H 05/26/19 04:54 MCH 32.0 pg (27.0-31.0) H 05/26/19 04:54 MCHC 32.1 g/dL (32.0-36.0) 05/26/19 04:54 RDW 20.6 % (12.0-15.0) H 05/26/19 04:54 Plt Count 60 10^3/uL (130-450) L 05/26/19 04:54 MPV 9.7 fL (7.9-10.8) 05/26/19 04:54 Neut # (Auto) 3.8 10^3/uL (1.5-6.6) 05/26/19 04:54 Lymph # (Auto) 0.5 10^3/uL (1.5-3.5) L 05/26/19 04:54 [place] # (Auto) 0.3 10^3/uL (0.0-1.0) 05/26/19 04:54 Eos # (Auto) 0.0 10^3/uL (0.0-0.7) 05/26/19 04:54 Baso # (Auto) 0.0 10^3/uL (0.0-0.1) 05/26/19 04:54 Absolute Nucleated RBC 0.04 x10^3/uL 05/26/19 04:54 Nucleated RBC % 0.9 /100WBC 05/26/19 04:54 PT 23.3 secs (9.9-12.6) H 05/26/19 04:54 INR 2.1 (0.8-1.2) H 05/26/19 04:54 Sodium 140 mmol/L (135-145) 05/26/19 04:54 Potassium 2.6 mmol/L (3.5-5.0) L 05/26/19 04:54 Chloride 96 mmol/L (101-111) L 05/26/19 04:54 Carbon Dioxide 33 mmol/L (21-32) H 05/26/19 04:54 Anion Gap 11.0 (6-13) 05/26/19 04:54 BUN 29 mg/dL (6-20) H 05/26/19 04:54 Creatinine 1.6 mg/dL (0.4-1.0) H 05/26/19 04:54 Estimated GFR (MDRD) 32 (>89) L 05/26/19 04:54 Glucose 139 mg/dL (70-100) H 05/26/19 04:54 Lactic Acid 1.5 mmol/L (0.5-2.2) 05/23/19 17:21 Calcium 8.2 mg/dL (8.5-10.3) L 05/26/19 04:54 Phosphorus 4.0 mg/dL (2.5-4.6) 05/26/19 04:54 Magnesium 1.7 mg/dL (1.7-2.8) 05/26/19 04:54 Total Bilirubin 2.7 mg/dL (0.2-1.0) H 05/23/19 17:21 AST 65 IU/L (10-42) H 05/23/19 17:21 ALT 58 IU/L (10-60) 05/23/19 17:21 Alkaline Phosphatase 48 IU/L (42-121) 05/23/19 17:21 Troponin I High Sens 60.1 pg/mL (2.3-14.8) H* 05/24/19 06:00 B-Natriuretic Peptide 4218 pg/mL (5-100) H 05/23/19 17:21 Total Protein 5.1 g/dL (6.7-8.2) L 05/23/19 17:21 Albumin 3.0 g/dL (3.2-5.5) L 05/26/19 04:54 Globulin 1.8 g/dL (2.1-4.2) L 05/23/19 17:21 Albumin/Globulin Ratio 1.8 (1.0-2.2) 05/23/19 17:21 Lipase 27 U/L (22-51) 05/23/19 17:21 TSH 4.41 uIU/mL (0.34-5.60) 05/24/19 04:54 Urine Color LT. YELLOW 05/23/19 21:30 Urine Clarity HAZY (CLEAR) 05/23/19 21:30 Urine pH 5.0 PH (5.0-7.5) 05/23/19 21:30 Ur Specific [place] 1.010 (1.002-1.030) 05/23/19 21:30 Urine Protein NEGATIVE mg/dL (NEGATIVE) 05/23/19 21:30 Urine Glucose (UA) NEGATIVE mg/dL (NEGATIVE) 05/23/19 21:30 Urine Ketones NEGATIVE mg/dL (NEGATIVE) 05/23/19 21:30 Urine Occult Blood LARGE (NEGATIVE) H 05/23/19 21:30 Urine Nitrite NEGATIVE (NEGATIVE) 05/23/19 21:30 Urine Bilirubin NEGATIVE (NEGATIVE) 05/23/19 21:30 Urine Urobilinogen 0.2 (NORMAL) E.U./dL (NORMAL) 05/23/19 21:30 Ur Leukocyte Esterase NEGATIVE (NEGATIVE) 05/23/19 21:30 Urine RBC 6-10 /HPF (0-5) H 05/23/19 21:30 Urine WBC 0-3 /HPF (0-5) 05/23/19 21:30 Ur Squamous Epith Cells RARE Squamous (<= Few) 05/23/19 21:30 Amorphous Sediment Few /LPF 05/23/19 21:30 Urine Bacteria Rare /HPF (None Seen) 05/23/19 21:30 Ur Microscopic Review INDICATED 05/23/19 21:30 Urine Culture Comments NOT INDICATED 05/23/19 21:30 Nasal Screen MRSA (PCR) NEGATIVE (NEGATIVE) 05/23/19 21:15 Blood Type A POSITIVE 05/25/19 19:20 Antibody Screen NEGATIVE 05/25/19 19:20 Crossmatch IS Only See Detail 05/25/19 19:20
[2019-05-26] MEDS: ACETAMINOPHEN 325 MG TABLET PO PRN (14:46)
[2019-05-26] MEDS ORDERED: POTASSIUM CHLORIDE 20 MEQ TABLET PO ONE ×2 (15:35→17:23)
--- NOTE | 2019-05-26 18:19 | CONSULTATION NOTE ---
Palliative Care Consultation - Referral Referring Provider: Jackeline Flores MD Time of Visit: [id number] Referral setting: Hospitalized patient Referral Reason: Cor Pulmonale/Atrial Fib with RVR/FTT - Information Sources Records reviewed: Previous records reviewed History/Review of Systems obtained from: Patient, Family (did follow up with brother Teena) Exam limitations: No limitations - History of Present Illness Brief History of Present Illness: This is a very pragmatic 73-year-old woman who has been admitted acutely, after ongoing functional decline over the last 3 to 4 weeks. Previous to her hospital admit, and ED visit she had been independent about 4 weeks ago. Able to drive, goes short distances the grocery store, and lives a very solitary life but has been okay with this as far as quality of life. She is a voracious reader, and likes her [employer] TV. She has been expecting her decline, she does understand she has pulmonary hypertension, and understands ia progressive disease. She has not accepted or followed up on any further treatment regarding this, has seen the specialists. She understands currently she is worsening, and has a limited life expectancy. She has somewhat a pragmatic response to this, does not present as emotional but fairly calm. When asked what she worries about most, is being a burden to her brother. She does understand currently she is quite weak, would not be able to take care of herself, and has in the past after she has had an intracranial bleed, has been in his SNF before. This would be acceptable as a bridge, if she were to improve, though she does understands improvement may not be possible with her current health problems. Patient is long-term been on Coumadin for history of PE and paroxysmal atrial fib. She did have a fairly severe fall 2 days ago, she had a negative head scan, unfortunately she has had significant hematoma develop in her left knee, scan shows it to be 9.4 x 2.4 x 13.4 cm. She denies tenderness at time of visit, reports it was painful earlier. She has been on intermittent aspirin, reports tarry stools, at this point in time there is not a plan for further endoscopy as her drop in hemoglobin currently is attributed to her large hematoma. Patient presents as quite weak, she has had functional decline over the last s everal weeks, with lower extremity weakness, increased shortness of breath, and increased difficulty caring for herself. She has been oxygen dependent on 2.5 L for long period of time, her LVEF in 10/2017 was 60% with her PAP at that time to be 55, she just had an echo done, and reportedly it was 117, with severe right ventricular enlargement with depressed function. Patient is quite fragile, with unstable cardiac status with frequent arrhythmias and atrial fib, functional decline, and now with acute hematoma of her left knee, as well as wounds and blisters in her lower extremities and lower extremity edema. Patient's symptom burden other than severe fatigue, is only moderate, she does have some anxiety regarding the outcome of this hospitalization, denies depression, and has intermittent pain. Palliative care meeting with patient to define goals of care, explore options regarding caregiving and resources, as well as anticipatory guidance. Medical/Surgical History - Past Medical History Cardiovascular: reports: Congestive heart failure, High cholesterol, Peripheral Vascular Disease, Pulmonary embolism, Atrial fibrillation, Other (Pulmonary Hypertension, Cor pulmonale) Respiratory: reports: Asthma, Shortness of breath, Other (chronic oxygen) Neuro: CVA (vs Intracranial bleed) Endocrine/Autoimmune: reports: HyPOthyroidism GI: reports: None SENIOR COUNSEL: reports: None : reports: None HEENT: reports: Chronic vision loss Psych: reports: None Musculoskeletal: reports: Scoliosis Derm: reports: Other (chronic venous stasis) MRSA Hx?: No - Past Surgical History General: reports: Colonoscopy HEENT: reports: Tonsil/Adenoidectomy - Substance History Use: Uses substance without health or social issues: NONE Social History - Living Situation Living arrangement: At home Living Situation: Alone Support System: Patient lives in a fairly large sized [facility] apartment, is a combination of 2. She has been impaired at [facility] since 2008. Her brother was the reason she moved up here, she had been a caregiver for her parents, her mother in 1999 her father in 2008. 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 The agreement between the 2 of them is she would take care of the parents and the ranch, and he would take care of her in halfway. She is actually been very independent until this last 3 or 4 weeks, when they had to take her places for her errands she has been more weak. She has a brother and [id number] and niece is coming from [place], but she has no one who would be able to be a primary caregiver. Brother sees her almost daily, and less he is traveling, as he is now here all year round.Is currently coming up from [place], breaking his knees, he will be here on the . Family History - Family History Family History: Mother: , CVA/TIA, Father: , COPD/Emphysema, Brother: Alive and Well Medications/Allergies - Medications Active Medication List: Active Medications Acetaminophen (Tylenol) 650 mg PO Q4HR PRN PRN Reason: Pain or Fever > 38C (100.4F) Last Admin: 05/26/19 14:46 Dose: 650 mg Digoxin (Lanoxin Inj) 250 mcg IVP DAILY ROMAN Last Admin: 05/26/19 12:45 Dose: 250 mcg Furosemide (Lasix Inj 20mg Vial) 20 mg IVP BIDDIURETIC ROMAN Last Admin: 05/26/19 14:06 Dose: 20 mg Ceftriaxone Sodium 2 gm/ (Sodium Chloride) 100 mls @ 200 mls/hr IV DAILY ROMAN Last Infusion: 05/26/19 10:30 Dose: Infused Sodium Chloride (Normal Saline 0.9%) 500 mls @ 0 mls/hr IV Q24H PRN PRN Reason: TKO RATE Last Infusion: 05/25/19 16:50 Dose: 0 mls/hr Diltiazem HCl 125 mg/ Dextrose 125 mls @ 5 mls/hr IV .Q25H ROMAN Last Infusion: 05/26/19 16:02 Dose: 5 mg/hr, 5 mls/hr Multi-Ingredient Ointment (Zinc Oxide) 1 applic TOP PRN PRN PRN Reason: Skin Care Last Admin: 05/26/19 05:30 Dose: 1 applic Nystatin (Nystop) 1 applic TOP BID ROMAN Last Admin: 05/26/19 05:30 Dose: 1 applic Pantoprazole Sodium (Protonix) 40 mg IVP BID ROMAN Last Admin: 05/26/19 09:34 Dose: 40 mg Polyethylene Glycol (Miralax) 17 gm PO DAILY ROMAN Last Admin: 05/26/19 11:57 Dose: Not Given Sodium Chloride (Normal Saline Flush 0.9%) 10 ml IVP 0100,0900,1700 ROMAN Last Admin: 05/26/19 17:31 Dose: Not Given Sodium Chloride (Normal Saline Flush 0.9%) 10 ml IVP PRN PRN PRN Reason: NEEDED PER PROVIDER ORDERS Last Admin: 05/26/19 06:05 Dose: 10 ml Cholecalciferol (Vitamin D3) [Vitamin D3] 4,000 unit PO DAILY 11/05/16 Multivitamin [Multiple Vitamins] 1 each PO DAILY 11/05/16 Simvastatin 20 mg PO QPM 11/05/16 Ciprofloxacin HCl [Cipro] 500 mg PO [id number] 05/23/19 Warfarin Sodium [Coumadin] 2 mg PO TUTHSA@209905/23/19 Warfarin Sodium [Coumadin] 4 mg PO SUMOWEFR@209905/23/19 Acetaminophen 1,000 mg PO DAILY 05/24/19 Aspirin 325 mg PO 1-2XD 05/25/19 - Allergies Allergies/Adverse Reactions: Allergies Allergy/AdvReac Type Severity Reaction Status Date / Time Penicillins Allergy Unknown Verified 05/23/19 16:46 Review of Systems - Constitutional Constitutional: reports: Fatigue, Weight loss (patient eats easy to prepare foods at home; tv dinners/soups). denies: Fever, Chills - Eyes Eyes: reports: Vision loss - Ears, Nose & Throat Ears, Nose & Throat: reports: Hearing loss, Other (edentulous) - Cardiovascular Cardiovascular: reports: Irregular heart rate, Edema (new over last couple of weeks), Decr. exercise tolerance, Orthopnea. denies: Chest pain - Respiratory Respiratory: reports: Orthopnea, SOB with exertion. denies: SOB at rest - Gastrointestinal Gastrointestinal: reports: Early satiety - Genitourinary Genitourinary: reports: Other (has catheter) - Musculoskeletal Musculoskeletal: reports: Muscle pain, Back pain, Muscle aches, Stiffness, Limited range of motion, Muscle weakness, Other (scoliosis) - Integumentary Integumentary: reports: Dryness, Nail changes (poor nail care; long fungal nails;), Other (new blisters reports has been unable to reach or change soaks for several days) - Neurological Neurological: reports: General weakness - Psychiatric Psychiatric: reports: Anxiety - Endocrine Endocrine: reports: Hypothyroidism - Hematologic/Lymphatic Hematologic/Lymphatic: reports: Anemia, Bruising, Bleeding tendencies, Recurrent infections (UTI) - All Other Systems All Other Systems: reports: Reviewed and negative Physical Exam - Vital Signs Vital Signs: Vital Signs x48h Temp Pulse Pulse Resp BP BP Pulse Ox 10/14/19 17:00 98 21 97/61 96 05/26/19 16:00 82 16 84/56 L 100 05/26/19 15:00 36.1 C L 105 H 21 97/51 L 96 05/26/19 14:56 120 H 99/58 L 05/26/19 14:45 136 H 20 108/60 108/60 05/26/19 14:30 114 H 20 104/54 L 100 05/26/19 14:20 107 H 98/54 L 98 05/26/19 14:15 120 H 102/58 L 97 05/26/19 14:10 120 H 17 105/61 98 05/26/19 14:07 121 H 22 99/59 L 05/26/19 14:03 126 H 20 106/74 05/26/19 14:00 127 H 25 H 106/61 99 05/26/19 13:00 120 H 24 99 05/26/19 12:45 126 H 05/26/19 12:00 36.4 C L 109 H 20 92/67 99 05/26/19 11:00 108 H 16 91/50 L 99 - Physical Exam General Appearance: positive: Alert, Mild distress (right wrist from old site was causing her pain; relieved with hot pack) Eyes Bilateral: positive: Normal inspection ENT: positive: No signs of dehydration Neck: positive: Trachea midline Cardiovascular: positive: Irregular, Tachycardia Respiratory: positive: Other (patient denies respiratory distress though easily breathless with conversation; breathes shallow) Abdomen: positive: Soft Skin: positive: Dryness, Bruising (large darkening hematoma from left thigh into left knee/calf), Other (large lower fluid filled blisters) Extremities: positive: Pedal edema (3-4+ left greater than right) Neurologic/Psychiatric: positive: Oriented x3, Mood/affect nml, Weakness, Flat affect Palliative Care - POLST Patient has POLST: Yes POLST Status: DNR, Comfort Measures Pain: Pain improved (back pain better with positioning; left leg pain better this afternnon;) Tiredness/Fatigue: Severe (7-10) Drowsiness/Sedation: Mild (1-3) Nausea: None Depression: None Anxiety: Moderate (4-6) Dyspnea: Moderate (4-6) Anorexia: Mild (1-3) Feelings of wellbeing/Perceived Quality of Life: Poor, Worsening Performance Status: Patient reports over the last few weeks she has had to do spit baths, she has had more difficulty managing her day-to-day staff. She does have some assistance from her [id number]. Previous to about 3 to 4 weeks ago, she was driving, able to get to her appointments, though she was not extremely active, she was independent. Currently she feels too weak, to even transfer to the chair, with poor activity tolerance and breathlessness. She would like to get stronger, and has been in his SNF before, after she had a intracranial bleed. This would be an acceptable option. - Palliative Care Discussion: Met with patient, she does report she is fairly pragmatic and an introvert. She has been expecting this ongoing decline, and somewhat accepts at 73 that this could be leading to her end-of-life event. She is hoping for the best in the context of being able to recover some functional status, and some independence. She understands currently she would not be able to return home without significant assistance, and would need someone to help her. She also understands that the right side of her heart "is very bad", and that her prognosis could be weeks. She very much wants a palliative approach, would accept hospice, but also would if there was a chance for improvement be amendable to recovering from this acute episode or looking for some improvement to be able to return home. She currently is receiving active interventions for her UTI, cardiac arrhythmias, wound care, and generalized weakness. She does want to be a do not attempt resuscitation, she does have a POLST filled out in 2009 with DO NOT RESUSCITATE and comfort measures. She is taking care of both her parents until their , her mother in 1999, and her dad in 2008, both had ended up bedfast at the end. She has not had any exposure to hospice, we did discuss this was a layer support mostly for family and primary caregivers, though if she were in a SNF she could receive this support. She is not aware of her finances, her brother oversees all of that, and she asked that I contact with him for further planning. She does have a Gnosticism background, she reports she does not go to hindu, but has a fairly strong belief system. As she is said she is a voracious reader, and finds much of her quality of life wrapped up in her sunni itude and reading. I was able to speak to her brother, she does not have the finances to hire 05/03, and if hiring caregivers it would be for short amounts for short period of time nor enough to pay but for a short stay private pay. Counseling provided to the brother regarding Medicare support at this point, if patient were to improve or to transition to SNF will need to be skilled care. Currently she does have wound care, potentially rehab needs, and at this point very unstable. Discussed she is quite fragile, and at high risk for acute decline. He shared there is no when in the family he could be primary caregiving, his works, her niece lives out of state , though is coming for visit, and he travels. We discussed in the context of the bigger picture, as she is expected to have a limited life expectancy with her serious illness, would recommend proceed with Medicaid application for either short-term or long-term planning. He would like that mailed to his home which is her address, will follow up with [employer] for assistance. Counseling also provided regarding the hospice benefit what it covers and does not cover, which is a does not cover room and board. Results - Lab Results Lab results reviewed: Yes Fish Bones: 05/26/19 04:54 05/26/19 14:08 Lab and Imaging Results: Lab Results x24hrs 05/26/19 05/26/19 05/26/19 Range/Units 14:08 04:54 04:54 WBC (4.8-10.8) x10^3/uL RBC (4.20-5.40) 10^6/uL Hgb (12.0-16.0) g/dL Hct (37.0-47.0) % MCV (81.0-99.0) fL MCH (27.0-31.0) pg MCHC (32.0-36.0) g/dL RDW (12.0-15.0) % Plt Count (130-450) 10^3/uL MPV (7.9-10.8) fL Neut # (Auto) (1.5-6.6) 10^3/uL Lymph # (Auto) (1.5-3.5) 10^3/uL [place] # (Auto) (0.0-1.0) 10^3/uL Eos # (Auto) (0.0-0.7) 10^3/uL Baso # (Auto) (0.0-0.1) 10^3/uL Absolute Nucleated RBC x10^3/uL Nucleated RBC % /100WBC PT 23.3 H (9.9-12.6) secs INR 2.1 H (0.8-1.2) Sodium (135-145) mmol/L Potassium 3.3 L (3.5-5.0) mmol/L Chloride (101-111) mmol/L Carbon Dioxide (21-32) mmol/L Anion Gap (6-13) BUN (6-20) mg/dL Creatinine (0.4-1.0) mg/dL Estimated GFR (MDRD) (>89) Glucose (70-100) mg/dL Calcium (8.5-10.3) mg/dL Phosphorus (2.5-4.6) mg/dL Magnesium (1.7-2.8) mg/dL Albumin 3.0 L (3.2-5.5) g/dL Blood Type Antibody Screen Crossmatch IS Only 05/26/19 05/26/19 05/25/19 Range/Units 04:54 04:54 23:56 WBC 4.6 L 5.4 (4.8-10.8) x10^3/uL RBC 3.00 L 2.97 L (4.20-5.40) 10^6/uL Hgb 9.6 L 9.6 L (12.0-16.0) g/dL Hct 29.9 L 29.6 L (37.0-47.0) % MCV 99.7 H 99.7 H (81.0-99.0) fL MCH 32.0 H 32.3 H (27.0-31.0) pg MCHC 32.1 32.4 (32.0-36.0) g/dL RDW 20.6 H 20.4 H (12.0-15.0) % Plt Count 60 L 78 L (130-450) 10^3/uL MPV 9.7 10.9 H (7.9-10.8) fL Neut # (Auto) 3.8 (1.5-6.6) 10^3/uL Lymph # (Auto) 0.5 L (1.5-3.5) 10^3/uL [place] # (Auto) 0.3 (0.0-1.0) 10^3/uL Eos # (Auto) 0.0 (0.0-0.7) 10^3/uL Baso # (Auto) 0.0 (0.0-0.1) 10^3/uL Absolute Nucleated RBC 0.04 x10^3/uL Nucleated RBC % 0.9 /100WBC PT (9.9-12.6) secs INR (0.8-1.2) Sodium 140 (135-145) mmol/L Potassium 2.6 L (3.5-5.0) mmol/L Chloride 96 L (101-111) mmol/L Carbon Dioxide 33 H (21-32) mmol/L Anion Gap 11.0 (6-13) BUN 29 H (6-20) mg/dL Creatinine 1.6 H (0.4-1.0) mg/dL Estimated GFR (MDRD) 32 L (>89) Glucose 139 H (70-100) mg/dL Calcium 8.2 L (8.5-10.3) mg/dL Phosphorus 4.0 (2.5-4.6) mg/dL Magnesium 1.7 (1.7-2.8) mg/dL Albumin (3.2-5.5) g/dL Blood Type Antibody Screen Crossmatch IS Only 05/25/19 05/25/19 05/25/19 Range/Units 19:20 19:20 19:20 WBC (4.8-10.8) x10^3/uL RBC (4.20-5.40) 10^6/uL Hgb (12.0-16.0) g/dL Hct (37.0-47.0) % MCV (81.0-99.0) fL MCH (27.0-31.0) pg MCHC (32.0-36.0) g/dL RDW (12.0-15.0) % Plt Count (130-450) 10^3/uL MPV (7.9-10.8) fL Neut # (Auto) (1.5-6.6) 10^3/uL Lymph # (Auto) (1.5-3.5) 10^3/uL [place] # (Auto) (0.0-1.0) 10^3/uL Eos # (Auto) (0.0-0.7) 10^3/uL Baso # (Auto) (0.0-0.1) 10^3/uL Absolute Nucleated RBC x10^3/uL Nucleated RBC % /100WBC PT (9.9-12.6) secs INR (0.8-1.2) Sodium (135-145) mmol/L Potassium (3.5-5.0) mmol/L Chloride (101-111) mmol/L Carbon Dioxide (21-32) mmol/L Anion Gap (6-13) BUN (6-20) mg/dL Creatinine (0.4-1.0) mg/dL Estimated GFR (MDRD) (>89) Glucose (70-100) mg/dL Calcium (8.5-10.3) mg/dL Phosphorus (2.5-4.6) mg/dL Magnesium (1.7-2.8) mg/dL Albumin (3.2-5.5) g/dL Blood Type A POSITIVE A POSITIVE Antibody Screen NEGATIVE Crossmatch IS Only See Detail Impression and Recommendations - Palliative Care Impression: This is a 73-year-old woman with worsening pulmonary hypertension, atrial fib with rapid ventricular response, fairly acute functional decline over the last 3 to 4 weeks, increasing shortness of breath and weakness, and now presents with a severe hematoma of her left knee and thigh, lower extremity edema with bli sters, and severe fatigue. Palliative care to provide support with anticipatory guidance and defining goals of care. Recommendations/Counseling Done: 1. Advanced care planning. Patient presents as a failure to thrive, and quite frail, with multiple comorbidities and acute decline over the last several weeks. She has a family who care about her very much, but no one who could be a primary caregiver or support her at home. Patient does understand the seriousness of her illness, she is hoping for some reprieve and improvement. She has been independent most of her life, and would like to return home at some point if possible. She does not feel this is absolutely necessary, and her concern is about the impact on her brother and his family. Counseling provided regarding palliative care versus hospice care, SNF versus long-term care stay, with both patient and brother separately. Palliative will continue to follow regarding patient's fragility, failure to th rive, development of goals and assist with long-term/short-term planning needs based on improvement vs decline of current acute issues. Time Spent: 60 minutes with greater than 50% of this done in counseling regarding goals of care, coordination of care with hospital team, and follow-up with brother.
--- NOTE | 2019-05-26 20:24 | ADVANCE CARE PLANNING NOTE ---
Advance Care Planning - Planning Encounter Date: 05/26/19 Time: 11:00 Purpose: To present the patient with her new diagnosis. To determine her wishes regarding aggressiveness of medical care Parties in Attendance: I spoke to the patient, who was in her bed. Decisional Capacity of the Patient: She is lucid and has full capacity to make decisions. - Diagnosis for Encounter (1) Cor pulmonale, chronic Summary: This was diagnosed by Echo done today, along with severe pulm HTN. - Encounter Subjective/Patient's Story: The patient lives alone, has no caregivers or help. She describes being close to her brother who is currently out of town. She was diagnosed with pulmonary hypertension 1 year ago, did not want medical treatment because it was presented to her as "experimental". She read about her diagnosis and tells me that she understands that it is serious. Objective/Medical Story: I discussed with her, the meaning of her Dx, and her prognosis of 1 year or less with the current RV failure and severe pulmonary hypertension. She would like Palliative Care consult, eventual Hospice consult, no transfers for any aggressive interventions. She does not wish to have the EGD, which would be considered high risk. Her POLST was reviewed and she wants to leave it the same which states DNR/DNI, "comfort measures" except IV treatment is okay Goals of Care: She would like to be comfortable, wants no transfers for more aggressive or interventional care, wants Palliative Care consultation and eventual Hospice. Plan: Continue DNR/DNI, cancel EGD, treat empirically, request Palliative Care consult, get OOB where she feels better. Code Status: Do Not Attempt Resuscitation Time spent on advance care plannin min
[2019-05-27] MEDS: ZINC OXIDE 20% OINT 30 GM TUBE TOP PRN (00:52)
[2019-05-27 05:16] LABS: EOSINOPHILS % (AUTO) 0.7 %; HGB - HEMOGLOBIN 8.8 g/dL (12.0-16.0); LYMPHOCYTES # (AUTO) 0.5 10^3/uL (1.5-3.5); LYMPHOCYTES % (AUTO) 10.6 %; MEAN CORPUSCULAR HEMOGLOBIN 31.3 pg (27.0-31.0); MEAN CORPUSCULAR HGB CONC 31.5 g/dL (32.0-36.0); MEAN CORPUSCULAR VOLUME 99.3 fL (81.0-99.0); MEAN PLATELET VOLUME 9.8 fL (7.9-10.8); MONOCYTES # (AUTO) 0.3 10^3/uL (0.0-1.0); NEUTROPHILS # (AUTO) 3.6 10^3/uL (1.5-6.6); NEUTROPHILS % (AUTO) 81.6 %; PLT - PLATELET COUNT 56 10^3/uL (130-450); RED BLOOD COUNT 2.81 10^6/uL (4.20-5.40); RED CELL DISTRIBUTION WIDTH 20.9 % (12.0-15.0); WHITE BLOOD COUNT 4.4 x10^3/uL (4.8-10.8)
[2019-05-27 05:24] LABS: INR 1.4 (0.8-1.2)
[2019-05-27 05:30] LABS: CREATININE 1.4 mg/dL (0.4-1.0); MAGNESIUM 1.5 mg/dL (1.7-2.8); PHOSPHORUS 3.3 mg/dL (2.5-4.6)
[2019-05-27] MEDS: FUROSEMIDE 20 MG TABLET PO SCH ×2 (06:01→13:37)
[2019-05-27 06:04] LABS: RBC MORPHOLOGY (MULTIPLE) 3+ ANISOCYTOSIS (NORMAL)
[2019-05-27 06:05] LABS: PLATELET ESTIMATE, MANUAL DECREASED (<130,000) (NORMAL); PLATELET MORPHOLOGY NORMAL APPEARANCE (NORMAL)
[2019-05-27] MEDS: MAGNESIUM OXIDE 400 MG TABLET PO SCH ×2 (06:43→13:25)
[2019-05-27] MEDS ORDERED: POTASSIUM CHLORIDE 20 MEQ TABLET PO ONE (07:00)
[2019-05-27] MEDS ORDERED: MULTIVITAMIN W/IRON, MINERALS 15 ML PO SCH (09:00)
[2019-05-27] MEDS: diltiaZEM 30 MG TABLET PO SCH ×4 (09:59→21:04)
[2019-05-27] MEDS: DIGOXIN 125 MCG TABLET PO SCH (10:00)
[2019-05-27] MEDS: SODIUM CHLORIDE FLUSH 0.9% 10 ML SYRINGE IVP SCH ×3 (13:27→21:08)
[2019-05-27] MEDS: cefUROXime axetil 250 MG TABLET PO SCH ×2 (13:36→21:05)
[2019-05-27] MEDS: NYSTATIN POWDER 15 GM TOP SCH ×2 (14:58→21:07)
--- NOTE | 2019-05-27 16:25 | CONSULTATION NOTE ---
Palliative Care Follow Up - Referral Referring Provider: Jackeline Flores MD Time of Visit: [id number] Referral setting: Hospitalized patient Referral Reason: Failure to Thrive/Pulmonary HTN - Information Sources Records reviewed: RN notes reviewed, Previous records reviewed History/Review of Systems obtained from: Patient Exam limitations: No limitations - History of Present Illness Update Brief HPI Update: Please see HPI for more extensive history. She presents quite frail again today, she is dyspneic with any activity, though she reports her heart went "back in the sinus rhythm". She has had no other episodes of feeling like her heart was fluttering. She does feel quite weak, she is worried about her lack of independence, she does have some anorexia and early satiety. She reports she is always been "picky" about her food, she does not have good dentition, but not noted any trouble with swallowing. She presents with ongoing difficulty with her lower extremity edema, blisters, and was a difficult transfer but she is glad to be in the chair. She reports to [facility] is quite sore and uncomfortable in the bed with her scoliosis. She denies she is worried about anything, she is quite pragmatic, she is hoping to be able to go to the local halfway for some rehab. She does understand at this point in time she is too frail to transition home with her lack of social support currently. I did share ride spoken with her brother, that there are not finances for 24-hour care, and it would be best to go where she would be most safe at this point in time, she is in agreement. She is pending a physical therapy evaluation to evaluate for skilled need, previous baseline actually was ambulatory, and a few weeks ago independent in all her ADLs. Social History - Living Situation Living arrangement: At home Living Situation: Alone Support System: Brother is currently traveling, he will be available on the weekend. 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 She is never , she took care of her parents for an extended period time, and came up here to be with her brother who has been both her landlord and oversight for finances. She reports she does have DPO a all set up, with her brother as first, [id number] second, and her nieces third. I will pursue and get a copy of this for her records for the future. Medications/Allergies - Medications Active Medication List: Active Medications Acetaminophen (Tylenol) 650 mg PO Q4HR PRN PRN Reason: Pain or Fever > 38C (100.4F) Last Admin: 05/26/19 14:46 Dose: 650 mg Cefuroxime Axetil (Ceftin) 250 mg PO BID [facility] Stop: 05/29/19 09:01 Last Admin: 05/27/19 13:36 Dose: 250 mg Digoxin (Lanoxin) 125 mcg PO DAILY [facility] Last Admin: 05/27/19 10:00 Dose: 125 mcg Diltiazem HCl (Cardizem) 30 mg PO QID [facility] Last Admin: 05/27/19 14:52 Dose: 30 mg Furosemide (Lasix) 20 mg PO BIDDIURETIC [facility] Last Admin: 05/27/19 13:37 Dose: 20 mg Sodium Chloride (Normal Saline 0.9%) 500 mls @ 0 mls/hr IV Q24H PRN PRN Reason: TKO RATE Last Infusion: 05/26/19 21:00 Dose: 10 mls/hr Multi-Ingredient Ointment (Zinc Oxide) 1 applic TOP PRN PRN PRN Reason: Skin Care Last Admin: 05/27/19 00:52 Dose: 1 applic Multivitamins/Minerals (Theragran M) 1 tab PO DAILYWM [facility] Nystatin (Nystop) 1 applic TOP BID [facility] Last Admin: 05/27/19 14:58 Dose: 1 applic Pantoprazole Sodium (Protonix) 40 mg PO BID [facility] Sodium Chloride (Normal Saline Flush 0.9%) 10 ml IVP 0100,0900,1700 [facility] Last Admin: 05/27/19 13:27 Dose: 10 ml Sodium Chloride (Normal Saline Flush 0.9%) 10 ml IVP PRN PRN PRN Reason: NEEDED PER PROVIDER ORDERS Last Admin: 05/26/19 06:05 Dose: 10 ml Cholecalciferol (Vitamin D3) [Vitamin D3] 4,000 unit PO DAILY 11/05/16 Multivitamin [Multiple Vitamins] 1 each PO DAILY 11/05/16 Simvastatin 20 mg PO QPM 11/05/16 Ciprofloxacin HCl [Cipro] 500 mg PO [id number] 05/23/19 Warfarin Sodium [Coumadin] 2 mg PO TUTHSA@2100 10/11/19 Warfarin Sodium [Coumadin] 4 mg PO SUMOWEFR@209905/23/19 Acetaminophen 1,000 mg PO DAILY 05/24/19 Aspirin 325 mg PO 1-2XD 05/25/19 - Allergies Allergies/Adverse Reactions: Allergies Allergy/AdvReac Type Severity Reaction Status Date / Time Penicillins Allergy Unknown Verified 05/23/19 16:46 Review of Systems - Constitutional Constitutional: reports: Fatigue, Poor appetite. denies: Fever - Eyes Eyes: reports: Vision loss, Corrective lenses - Ears, Nose & Throat Ears, Nose & Throat: reports: Hearing loss, Dental decay, Dry mouth - Cardiovascular Cardiovascular: reports: Edema, Decr. exercise tolerance. denies: Palpitations, Chest pain - Respiratory Respiratory: reports: SOB with exertion. denies: SOB at rest - Gastrointestinal Gastrointestinal: reports: Diarrhea, Bloating, Poor appetite, Early satiety. denies: Nausea, Reflux/heartburn - Genitourinary Genitourinary: reports: Other (currently has thornton) - Musculoskeletal Musculoskeletal: reports: Back pain (scolioisis), Stiffness, Limited range of motion, Muscle weakness, Transfer issues (needed lift today) - Integumentary Integumentary: reports: Dryness, Nail changes - Neurological Neurological: reports: General weakness. denies: Memory problems - Psychiatric Psychiatric: denies: Depression, Anxiety - Endocrine Endocrine: reports: Intolerance to cold - Hematologic/Lymphatic Hematologic/Lymphatic: reports: Anemia - All Other Systems All Other Systems: reports: Reviewed and negative Physical Exam - Vital Signs Vital Signs: Vital Signs x48h Temp Pulse Pulse Pulse Resp BP BP 05/27/19 15:00 79 16 93/59 L 05/27/19 14:52 95/65 05/27/19 14:00 77 15 86/62 L 05/27/19 13:00 79 19 89/51 L 05/27/19 12:00 36.5 C 70 18 110/62 05/27/19 11:00 86 22 100/52 L 05/27/19 10:35 73 75 05/27/19 10:00 36.7 C 74 20 104/62 05/27/19 09:59 104/61 05/27/19 09:00 73 17 105/56 L BP BP Pulse Ox 05/27/19 15:00 91 L 05/27/19 14:52 05/27/19 14:00 93 05/27/19 13:00 92 05/27/19 12:00 05/27/19 11:00 96 05/27/19 10:35 102/54 L 114/76 05/27/19 10:00 95 05/27/19 09:59 05/27/19 09:00 93 - Physical Exam General Appearance: positive: Alert, Mild distress Eyes Bilateral: positive: Normal inspection Neck: positive: Trachea midline Cardiovascular: positive: Irregularly irregular Respiratory: positive: No respiratory distress, Diminished in bases Abdomen: positive: Soft Skin: positive: Pallor, Dryness, Bruising (hematoma into left knee/thigh area), Wound (dressings on LE for blisters/) Extremities: positive: Pedal edema Neurologic/Psychiatric: positive: Oriented x3, Mood/affect nml, Weakness, Flat affect Palliative Care - POLST Patient has POLST: Yes POLST Status: DNR, Comfort Measures Pain: Pain unchanged, Location (lower back/coccyx discomfort) Tiredness/Fatigue: Severe (7-10) Drowsiness/Sedation: Mild (1-3) Nausea: None Depression: None Anxiety: None Dyspnea: Moderate (4-6) Anorexia: Moderate (4-6) Sleep: Sleeps poorly Performance Status: Mostly bedbound since she is been here, she is to initiate evaluation and work with PT. She is hoping to at least get into the chair today. She is feeling quite fatigued. - Palliative Care Discussion: Met with patient, attempting to further establish rapport. She remains quite distance, but was able to share some more [place] of her parents, her philosophy regarding her current serious illness and her ongoing decline. Her goals are hopefully to improve some functionally, but does recognize this could continue to deteriorate. In agreement for palliative care support to follow her alongside her journey. She does have a POLST in place with DNA R/comfort measures. She would accept things to currently support her quality of life, but will continue to define her quality of life depending on her independence. Results - Lab Results Lab results reviewed: Yes Fish Bones: 05/27/19 05:00 05/27/19 05:00 Lab and Imaging Results: Lab Results x24hrs 05/27/19 05/27/19 05/27/19 Range/Units 05:10 05:00 05:00 WBC 4.4 L (4.8-10.8) x10^3/uL RBC 2.81 L (4.20-5.40) 10^6/uL Hgb 8.8 L (12.0-16.0) g/dL Hct 27.9 L (37.0-47.0) % MCV 99.3 H (81.0-99.0) fL MCH 31.3 H (27.0-31.0) pg MCHC 31.5 L (32.0-36.0) g/dL RDW 20.9 H (12.0-15.0) % Plt Count 56 L (130-450) 10^3/uL MPV 9.8 (7.9-10.8) fL Neut # (Auto) 3.6 (1.5-6.6) 10^3/uL Lymph # (Auto) 0.5 L (1.5-3.5) 10^3/uL Haines # (Auto) 0.3 (0.0-1.0) 10^3/uL Eos # (Auto) 0.0 (0.0-0.7) 10^3/uL Baso # (Auto) 0.0 (0.0-0.1) 10^3/uL Absolute Nucleated RBC 0.03 x10^3/uL Nucleated RBC % 0.7 /100WBC Manual Slide Review Indicated WBC Morphology NORMAL APPEARANCE (NORMAL) Platelet Estimate DECREASED (<130,000) (NORMAL) Platelet Morphology NORMAL APPEARANCE (NORMAL) RBC Morph Micro Appear 3+ ANISOCYTOSIS (NORMAL) PT (9.9-12.6) secs INR (0.8-1.2) Sodium 142 (135-145) mmol/L Potassium 3.2 L (3.5-5.0) mmol/L Chloride 96 L (101-111) mmol/L Carbon Dioxide 35 H (21-32) mmol/L Anion Gap 11.0 (6-13) BUN 26 H (6-20) mg/dL Creatinine 1.4 H (0.4-1.0) mg/dL Estimated GFR (MDRD) 37 L (>89) Glucose 146 H (70-100) mg/dL Calcium 8.0 L (8.5-10.3) mg/dL Phosphorus 3.3 (2.5-4.6) mg/dL Magnesium 1.5 L (1.7-2.8) mg/dL Albumin 2.7 L (3.2-5.5) g/dL Blood Type 05/27/19 05/25/19 Range/Units 05:00 19:20 WBC (4.8-10.8) x10^3/uL RBC (4.20-5.40) 10^6/uL Hgb (12.0-16.0) g/dL Hct (37.0-47.0) % MCV (81.0-99.0) fL MCH (27.0-31.0) pg MCHC (32.0-36.0) g/dL RDW (12.0-15.0) % Plt Count (130-450) 10^3/uL MPV (7.9-10.8) fL Neut # (Auto) (1.5-6.6) 10^3/uL Lymph # (Auto) (1.5-3.5) 10^3/uL Haines # (Auto) (0.0-1.0) 10^3/uL Eos # (Auto) (0.0-0.7) 10^3/uL Baso # (Auto) (0.0-0.1) 10^3/uL Absolute Nucleated RBC x10^3/uL Nucleated RBC % /100WBC Manual Slide Review WBC Morphology (NORMAL) Platelet Estimate (NORMAL) Platelet Morphology (NORMAL) RBC Morph Micro Appear (NORMAL) PT 16.0 H (9.9-12.6) secs INR 1.4 H (0.8-1.2) Sodium (135-145) mmol/L Potassium (3.5-5.0) mmol/L Chloride (101-111) mmol/L Carbon Dioxide (21-32) mmol/L Anion Gap (6-13) BUN (6-20) mg/dL Creatinine (0.4-1.0) mg/dL Estimated GFR (MDRD) (>89) Glucose (70-100) mg/dL Calcium (8.5-10.3) mg/dL Phosphorus (2.5-4.6) mg/dL Magnesium (1.7-2.8) mg/dL Albumin (3.2-5.5) g/dL Blood Type A POSITIVE Impression and Recommendations - Palliative Care Impression: This is a 73-year-old woman with worsening pulmonary hypertension/cor pulmonale, atrial fib with rapid ventricular response improved, acute functional decline over the last 3 to 4 weeks, and increasing symptom burden. She presents with dyspnea, lower extremity edema, wound care needs, and severe fatigue. Palliative care to continue to follow patient and provide support until appropriate to transition to hospice. Recommendations/Counseling Done: 1. Generalized weakness. Patient to initiate physical therapy evaluation, patient feeling quite fatigued and weak. She is hopeful that she will have a chance to improve, though does recognize that may continue to decline. She is quite open to continuing on at the local halfway, she has had a SNF stay in the past. This would be the primary goal to try meet her goal to regain some independence. 2. Advanced care planning. Patient is quite pragmatic, she has lived a fairly solitary life, her brother is her main support and will be available this weekend. She does understand the seriousness of her illness, though she is withdrawn, she is tracking information and giving appropriate answers. Time Spent: Minutes is greater than 50% of this done in counseling regarding goals of care, setting up rapport with palliative care, awaiting transition hopefully to SNF. Follow-up with [employer] to male [facility] application to patient's home for brother to complete or explore in the future, does have some funds for short term support.
--- NOTE | 2019-05-27 17:53 | PROVIDER PROGRESS NOTE ---
Subjective - Subjective Pt reports feeling: No change Subjective: She continues to reports dyspnea at rest and with exertion. She does endorse palpitations at times but sometimes she cannot tell when her heart is racing which makes her concerned. She was too weak to work with PT yesterday. Current Medications - Current Medications Current Medications: Active Medications Acetaminophen (Tylenol) 650 mg PO Q4HR PRN PRN Reason: Pain or Fever > 38C (100.4F) Last Admin: 05/26/19 14:46 Dose: 650 mg Cefuroxime Axetil (Ceftin) 250 mg PO BID [facility] Stop: 05/29/19 09:01 Last Admin: 05/27/19 13:36 Dose: 250 mg Digoxin (Lanoxin) 125 mcg PO DAILY [facility] Last Admin: 05/27/19 10:00 Dose: 125 mcg Diltiazem HCl (Cardizem) 30 mg PO QID [facility] Last Admin: 05/27/19 17:51 Dose: Not Given Furosemide (Lasix) 20 mg PO BIDDIURETIC [facility] Last Admin: 05/27/19 13:37 Dose: 20 mg Sodium Chloride (Normal Saline 0.9%) 500 mls @ 0 mls/hr IV Q24H PRN PRN Reason: TKO RATE Last Infusion: 05/26/19 21:00 Dose: 10 mls/hr Multi-Ingredient Ointment (Zinc Oxide) 1 applic TOP PRN PRN PRN Reason: Skin Care Last Admin: 05/27/19 00:52 Dose: 1 applic Multivitamins/Minerals (Theragran M) 1 tab PO DAILYWM [facility] Nystatin (Nystop) 1 applic TOP BID [facility] Last Admin: 05/27/19 14:58 Dose: 1 applic Pantoprazole Sodium (Protonix) 40 mg PO BID [facility] Sodium Chloride (Normal Saline Flush 0.9%) 10 ml IVP 0100,0900,1700 [facility] Last Admin: 05/27/19 13:27 Dose: 10 ml Sodium Chloride (Normal Saline Flush 0.9%) 10 ml IVP PRN PRN PRN Reason: NEEDED PER PROVIDER ORDERS Last Admin: 05/26/19 06:05 Dose: 10 ml Cholecalciferol (Vitamin D3) [Vitamin D3] 4,000 unit PO DAILY 11/05/16 Multivitamin [Multiple Vitamins] 1 each PO DAILY 03/26/17 Simvastatin 20 mg PO QPM 11/05/16 Ciprofloxacin HCl [Cipro] 500 mg PO [id number] 05/23/19 Warfarin Sodium [Coumadin] 2 mg PO TUTHSA@209905/23/19 Warfarin Sodium [Coumadin] 4 mg PO SUMOWEFR@209905/23/19 Acetaminophen 1,000 mg PO DAILY 05/24/19 Aspirin 325 mg PO 1-2XD 05/25/19 Objective - Vital Signs/Intake & Output Reviewed Vital Signs: Yes Vital Signs: Vital Signs x48h Temp Pulse Pulse Pulse Resp BP BP 05/27/19 17:00 36.7 C 84 20 96/60 05/27/19 16:00 77 17 85/60 L 05/27/19 15:00 79 16 93/59 L 05/27/19 14:52 95/65 05/27/19 14:45 95/65 05/27/19 14:00 77 15 86/62 L 05/27/19 13:00 79 19 89/51 L 05/27/19 12:00 36.5 C 70 18 110/62 05/27/19 11:00 86 22 100/52 L 05/27/19 10:35 73 75 05/27/19 10:00 36.7 C 74 20 104/62 05/27/19 09:59 104/61 BP BP Pulse Ox 05/27/19 17:00 96 05/27/19 16:00 94 05/27/19 15:00 91 L 05/27/19 14:52 05/27/19 14:45 05/27/19 14:00 93 05/27/19 13:00 92 05/27/19 12:00 05/27/19 11:00 96 05/27/19 10:35 102/54 L 114/76 05/27/19 10:00 95 05/27/19 09:59 Intake & Output: Intake & Output 05/24/19 05/25/19 05/26/19 05/27/19 23:59 23:59 23:59 23:59 Intake Total 8739.766 6011.292 1306.000 470 Output Total 1888 5363 4447 2335 Balance -1565.625 -943.708 -889.000 -1273 - Objective General Appearance: positive: No acute distress, Alert Eyes Bilateral: positive: Normal inspection ENT: positive: ENT inspection nml Neck: positive: Nml inspection Respiratory: positive: No respiratory distress, Other (Dimished breath sounds) Cardiovascular: positive: Regular rate & rhythm, No murmur. negative: Tachycardia, Bradycardia, Systolic murmur, Diastolic murmur Abdomen: positive: Non-tender, No distention. negative: Tenderness Skin: positive: Other (Dressing in place over her bilateral lower extremites from mid molina down to the dorsum of the feet. There is a large area of eccyhmoses located over the last aspect of her left lower extremity from the thigh down to the knee.) Extremities: positive: Full ROM, Pedal edema (+2 pitting in bilateral lower extremities) Neurologic/Psychiatric: positive: Oriented x3, Motor nml. negative: Disoriented to person, Disoriented to place, Disoriented to time - Lab Results Fish Bones: 05/27/19 05:00 05/27/19 05:00 Other Labs: Lab Results x24hrs 05/27/19 05/27/19 05/27/19 Range/Units 05:10 05:00 05:00 WBC 4.4 L (4.8-10.8) x10^3/uL RBC 2.81 L (4.20-5.40) 10^6/uL Hgb 8.8 L (12.0-16.0) g/dL Hct 27.9 L (37.0-47.0) % MCV 99.3 H (81.0-99.0) fL MCH 31.3 H (27.0-31.0) pg MCHC 31.5 L (32.0-36.0) g/dL RDW 20.9 H (12.0-15.0) % Plt Count 56 L (130-450) 10^3/uL MPV 9.8 (7.9-10.8) fL Neut # (Auto) 3.6 (1.5-6.6) 10^3/uL Lymph # (Auto) 0.5 L (1.5-3.5) 10^3/uL Reynolds # (Auto) 0.3 (0.0-1.0) 10^3/uL Eos # (Auto) 0.0 (0.0-0.7) 10^3/uL Baso # (Auto) 0.0 (0.0-0.1) 10^3/uL Absolute Nucleated RBC 0.03 x10^3/uL Nucleated RBC % 0.7 /100WBC Manual Slide Review Indicated WBC Morphology NORMAL APPEARANCE (NORMAL) Platelet Estimate DECREASED (<130,000) (NORMAL) Platelet Morphology NORMAL APPEARANCE (NORMAL) RBC Morph Micro Appear 3+ ANISOCYTOSIS (NORMAL) PT (9.9-12.6) secs INR (0.8-1.2) Sodium 142 (135-145) mmol/L Potassium 3.2 L (3.5-5.0) mmol/L Chloride 96 L (101-111) mmol/L Carbon Dioxide 35 H (21-32) mmol/L Anion Gap 11.0 (6-13) BUN 26 H (6-20) mg/dL Creatinine 1.4 H (0.4-1.0) mg/dL Estimated GFR (MDRD) 37 L (>89) Glucose 146 H (70-100) mg/dL Calcium 8.0 L (8.5-10.3) mg/dL Phosphorus 3.3 (2.5-4.6) mg/dL Magnesium 1.5 L (1.7-2.8) mg/dL Albumin 2.7 L (3.2-5.5) g/dL Blood Type 05/27/19 05/25/19 Range/Units 05:00 19:20 WBC (4.8-10.8) x10^3/uL RBC (4.20-5.40) 10^6/uL Hgb (12.0-16.0) g/dL Hct (37.0-47.0) % MCV (81.0-99.0) fL MCH (27.0-31.0) pg MCHC (32.0-36.0) g/dL RDW (12.0-15.0) % Plt Count (130-450) 10^3/uL MPV (7.9-10.8) fL Neut # (Auto) (1.5-6.6) 10^3/uL Lymph # (Auto) (1.5-3.5) 10^3/uL Reynolds # (Auto) (0.0-1.0) 10^3/uL Eos # (Auto) (0.0-0.7) 10^3/uL Baso # (Auto) (0.0-0.1) 10^3/uL Absolute Nucleated RBC x10^3/uL Nucleated RBC % /100WBC Manual Slide Review WBC Morphology (NORMAL) Platelet Estimate (NORMAL) Platelet Morphology (NORMAL) RBC Morph Micro Appear (NORMAL) PT 16.0 H (9.9-12.6) secs INR 1.4 H (0.8-1.2) Sodium (135-145) mmol/L Potassium (3.5-5.0) mmol/L Chloride (101-111) mmol/L Carbon Dioxide (21-32) mmol/L Anion Gap (6-13) BUN (6-20) mg/dL Creatinine (0.4-1.0) mg/dL Estimated GFR (MDRD) (>89) Glucose (70-100) mg/dL Calcium (8.5-10.3) mg/dL Phosphorus (2.5-4.6) mg/dL Magnesium (1.7-2.8) mg/dL Albumin (3.2-5.5) g/dL Blood Type A POSITIVE ABX Reporting Has patient been on IV antibiotics over the past 48 hours?: No Assessment/Plan - Problem List (1) Cor pulmonale, chronic Impression: Secondary to her severe pulmonary hypertension and has subsequently lead to chronic lower extremity edema. She understand her diagnosis and prognosis. She does not wish to pursue extensive workup and treatment. Continue gentle diuresis with Lasix. Will not obtain EGD due to her high risk for this procedure. Palliative has been consulted and appreciate their input regarding the possibi lity of hospice. (2) Severe pulmonary arterial systolic hypertension Impression: Plan as mentioned above for cor pulmonale. (3) Hypotension Impression: She has been hypotensive with systolic in the 90''s which limits the rate control medications we can use for atrial fibrillation and we cannot aggressively diurese her as well. Start Cardizem PO with holding parameters. Gentle diuresis with Lasix IV as tolerated. (4) Atrial fibrillation with rapid ventricular response Impression: Converted to sinus overnight and is rate controlled on diltiazem IV. Will transition to oral cardizem with holding parameters. Continue digoxin PO and will check level in AM. No further coumadin due to her GI bleed and high risk for EGD. (5) Anemia due to GI blood loss Impression: Her hemoglobin has fortunately remained relatively stable. Will not proceed with EGD and colonoscopy given she would be high risk. Continue to hold coumadin. Will start oral protonix BID. (6) CKD (chronic kidney disease) Impression: Her renal function remains stable at baseline. (7) Traumatic ecchymosis of thigh Impression: CT revealed hematoma with edema. Continue pain control with tylenol and hold coumadin. Qualifiers: Laterality: left (8) UTI (urinary tract infection) Impression: Prior cultures grew enterococcus and klebsiella. Stop ceftriaxone and switch to oral Ceftin for 2 more days to complete 5 days of treatment. Qualifiers: Urinary tract infection type: acute cystitis Hematuria presence: without hematuria Qualified Code(s): N30.00 - Acute cystitis without hematuria (9) Weakness generalized Impression: Likely multifactorial from prolonged hospitalization, hypotension, cor pulmonale, and pain from the left lower extremity hematoma. PT has begun to work with the patient today and appreciate their recommendations. She may require SNF on discharge.
[2019-05-27] MEDS: PANTOPRAZOLE 40 MG TABLET PO SCH (21:05)
[2019-05-27] MEDS: ACETAMINOPHEN 325 MG TABLET PO PRN (23:57)
[2019-05-28] MEDS: ZINC OXIDE 20% OINT 30 GM TUBE TOP PRN ×5 (00:11→22:26)
[2019-05-28] MEDS: FUROSEMIDE 20 MG TABLET PO SCH (05:04)
[2019-05-28 05:59] LABS: BASOPHILS % (AUTO) 0.3 %; EOSINOPHILS % (AUTO) 0.8 %; HGB - HEMOGLOBIN 8.9 g/dL (12.0-16.0); LYMPHOCYTES # (AUTO) 0.5 10^3/uL (1.5-3.5); LYMPHOCYTES % (AUTO) 14.1 %; MEAN CORPUSCULAR HEMOGLOBIN 31.7 pg (27.0-31.0); MEAN CORPUSCULAR HGB CONC 31.2 g/dL (32.0-36.0); MEAN CORPUSCULAR VOLUME 101.4 fL (81.0-99.0); MEAN PLATELET VOLUME 10.5 fL (7.9-10.8); MONOCYTES # (AUTO) 0.3 10^3/uL (0.0-1.0); MONOCYTES % (AUTO) 6.8 %; NEUTROPHILS # (AUTO) 2.9 10^3/uL (1.5-6.6); NEUTROPHILS % (AUTO) 76.7 %; PLT - PLATELET COUNT 52 10^3/uL (130-450); RED BLOOD COUNT 2.81 10^6/uL (4.20-5.40); RED CELL DISTRIBUTION WIDTH 21.1 % (12.0-15.0); WHITE BLOOD COUNT 3.8 x10^3/uL (4.8-10.8)
[2019-05-28 06:12] LABS: ALBUMIN 2.5 g/dL (3.2-5.5); DIGOXIN 0.7 ng/mL
[2019-05-28 06:26] LABS: CALCIUM 8.1 mg/dL (8.5-10.3); CREATININE 1.1 mg/dL (0.4-1.0); MAGNESIUM 1.6 mg/dL (1.7-2.8)
[2019-05-28 06:57] LABS: PLATELET ESTIMATE, MANUAL DECREASED (<130,000) (NORMAL); PLATELET MORPHOLOGY NORMAL APPEARANCE (NORMAL)
[2019-05-28] MEDS ORDERED: POTASSIUM CHLORIDE 20 MEQ TABLET PO ONE (08:00)
[2019-05-28] MEDS ORDERED: POTASSIUM CHLORIDE 20 MEQ TABLET PO SCH (08:00)
[2019-05-28] MEDS ORDERED: acetaZOLAMIDE 250 MG TABLET PO ONE (08:00)
[2019-05-28] MEDS: DIGOXIN 125 MCG TABLET PO SCH (08:26)
[2019-05-28] MEDS: diltiaZEM 30 MG TABLET PO SCH ×3 (08:33→20:13)
[2019-05-28] MEDS: PANTOPRAZOLE 40 MG TABLET PO SCH ×2 (08:36→20:13)
[2019-05-28] MEDS: cefUROXime axetil 250 MG TABLET PO SCH ×2 (08:36→20:12)
[2019-05-28] MEDS: MAGNESIUM OXIDE 400 MG TABLET PO SCH ×2 (08:37→14:02)
[2019-05-28] MEDS: MULTIVITAMIN W/MINERALS TABLET PO SCH (08:37)
[2019-05-28] MEDS: SODIUM CHLORIDE FLUSH 0.9% 10 ML SYRINGE IVP SCH ×2 (08:39→17:31)
[2019-05-28] MEDS ORDERED: POTASSIUM CHLORIDE 20 MEQ/15 ML UDC PO ONE (09:00)
[2019-05-28] MEDS: NYSTATIN POWDER 15 GM TOP SCH ×2 (09:49→20:13)
--- NOTE | 2019-05-28 12:42 | XRAY Report ---
Reason: Dyspnea. Hypoxia. Procedure Date: 05/28/2019 Accession Number: [id number] / [id number] Procedure: XR - Chest 1 View X-Ray CPT Code: 12046 FULL RESULT: EXAM: CHEST RADIOGRAPHY EXAM DATE: 05/28/2019 12:00 PM. CLINICAL HISTORY: Dyspnea. Hypoxia. COMPARISON: CHEST 1 VIEW 05/23/2019 5:00 PM CHEST W/O 11/06/2016 5:54 PM. TECHNIQUE: 1 view. FINDINGS: Lungs/Pleura: Vascular congestion. Increased lung markings. Blunting left costophrenic angle. Mediastinum: Stable. Enlarged main pulmonary artery. Other: Scoliosis. IMPRESSION: 1. Stable chest. 2. Vascular congestion. 3. Heterogeneous left lung base opacity. 4. Small left pleural effusion. 5. Enlarged main pulmonary artery can be seen with pulmonary artery hypertension RADIA
--- NOTE | 2019-05-28 13:24 | PROVIDER PROGRESS NOTE ---
Subjective - Prog Note Date Prog Note Date: 05/28/19 - Subjective Subjective: She reports feeling a little more short of breath this morning. She was not hypoxic but asked for her supplemental oxygen to be increased. She is back in afib with RVR but denies palpitations or chest pain. She was able to work with PT yesterday. Current Medications - Current Medications Current Medications: Active Medications Acetaminophen (Tylenol) 650 mg PO Q4HR PRN PRN Reason: Pain or Fever > 38C (100.4F) Last Admin: 05/27/19 23:57 Dose: 650 mg Cefuroxime Axetil (Ceftin) 250 mg PO BID ROMAN Stop: 05/29/19 09:01 Last Admin: 05/28/19 08:36 Dose: 250 mg Digoxin (Lanoxin) 125 mcg PO DAILY ROMAN Last Admin: 05/28/19 08:26 Dose: 125 mcg Diltiazem HCl (Cardizem) 30 mg PO Q6H ROMAN Furosemide (Lasix Inj 20mg Vial) 20 mg IVP BIDDIURETIC ROMAN Sodium Chloride (Normal Saline 0.9%) 500 mls @ 0 mls/hr IV Q24H PRN PRN Reason: TKO RATE Last Infusion: 05/28/19 03:44 Dose: Infused Magnesium Oxide (Mag Ox) 400 mg PO Q6H ROMAN; Protocol Stop: 05/28/19 14:01 Last Admin: 05/28/19 08:37 Dose: 400 mg Multi-Ingredient Ointment (Zinc Oxide) 1 applic TOP PRN PRN PRN Reason: Skin Care Last Admin: 05/28/19 06:31 Dose: 1 applic Multivitamins/Minerals (Theragran M) 1 tab PO DAILYWM ROMAN Last Admin: 05/28/19 08:37 Dose: 1 tab Nystatin (Nystop) 1 applic TOP BID ROMAN Last Admin: 05/28/19 09:49 Dose: 1 applic Pantoprazole Sodium (Protonix) 40 mg PO BID ROMAN Last Admin: 05/28/19 08:36 Dose: 40 mg Potassium Chloride () 20 meq PO DAILYWM ROMAN Sodium Chloride (Normal Saline Flush 0.9%) 10 ml IVP 0100,0900,1700 ROMAN Last Admin: 05/28/19 08:39 Dose: 10 ml Sodium Chloride (Normal Saline Flush 0.9%) 10 ml IVP PRN PRN PRN Reason: NEEDED PER PROVIDER ORDERS Last Admin: 05/26/19 06:05 Dose: 10 ml Cholecalciferol (Vitamin D3) [Vitamin D3] 4,000 unit PO DAILY 11/05/16 Multivitamin [Multiple Vitamins] 1 each PO DAILY 11/05/16 Simvastatin 20 mg PO QPM 11/05/16 Ciprofloxacin HCl [Cipro] 500 mg PO [id number] 05/23/19 Warfarin Sodium [Coumadin] 2 mg PO TUTHSA@209905/23/19 Warfarin Sodium [Coumadin] 4 mg PO SUMOWEFR@209905/23/19 Acetaminophen 1,000 mg PO DAILY 05/24/19 Aspirin 325 mg PO 1-2XD 05/25/19 Objective - Vital Signs/Intake & Output Reviewed Vital Signs: Yes Vital Signs: Vital Signs x48h Temp Pulse Resp BP BP Pulse Ox 05/28/19 12:00 82 19 96/56 L 96 05/28/19 11:00 84 21 93/59 L 94 05/28/19 10:00 130 H 19 89/64 L 94 05/28/19 09:00 146 H 20 95/64 93 05/28/19 08:33 91/62 05/28/19 08:00 36.9 C 151 H 22 91/62 93 05/28/19 07:00 94 20 95/66 93 05/28/19 06:00 76 19 107/71 95 Intake & Output: Intake & Output 05/25/19 05/26/19 05/27/19 05/28/19 23:59 23:59 23:59 23:59 Intake Total 3826.925 7963.000 654.833 743.333 Output Total 19994 4 1120 [facility] -943.708 -889.000 -1563.167 -376.667 - Objective General Appearance: positive: Alert Eyes Bilateral: positive: Normal inspection ENT: positive: ENT inspection nml, Other (Nasal cannula in place.) Respiratory: positive: No respiratory distress, Other (Diminshed breath sounds. Faint crackles.) Cardiovascular: positive: No murmur, Irregularly irregular, Tachycardia. negative: Systolic murmur, Diastolic murmur Abdomen: positive: Non-tender, No distention. negative: Tenderness Skin: positive: Other (Large ecchymotic area located over the lateral aspect of the left leg. Dressing in place over her bilateral feet.) Extremities: positive: Pedal edema (+2 pitting edema in bilateral lower extremities.) Neurologic/Psychiatric: positive: Oriented x3. negative: Disoriented to person, Disoriented to place, Disoriented to time - Lab Results Fish Bones: 05/28/19 04:50 05/28/19 04:50 Other Labs: Lab Results x24hrs 05/28/19 05/28/19 05/28/19 Range/Units 04:50 04:50 04:50 WBC 3.8 L (4.8-10.8) x10^3/uL RBC 2.81 L (4.20-5.40) 10^6/uL Hgb 8.9 L (12.0-16.0) g/dL Hct 28.5 L (37.0-47.0) % MCV 101.4 H (81.0-99.0) fL MCH 31.7 H (27.0-31.0) pg MCHC 31.2 L (32.0-36.0) g/dL RDW 21.1 H (12.0-15.0) % Plt Count 52 L (130-450) 10^3/uL MPV 10.5 (7.9-10.8) fL Neut # (Auto) 2.9 (1.5-6.6) 10^3/uL Lymph # (Auto) 0.5 L (1.5-3.5) 10^3/uL [place] # (Auto) 0.3 (0.0-1.0) 10^3/uL Eos # (Auto) 0.0 (0.0-0.7) 10^3/uL Baso # (Auto) 0.0 (0.0-0.1) 10^3/uL Absolute Nucleated RBC 0.02 x10^3/uL Nucleated RBC % 0.5 /100WBC Manual Slide Review Indicated WBC Morphology NORMAL APPEARANCE (NORMAL) Platelet Estimate DECREASED (<130,000) (NORMAL) Platelet Morphology NORMAL APPEARANCE (NORMAL) RBC Morph Micro Appear 1+ HYPOCHROMASIA (NORMAL) Sodium 142 (135-145) mmol/L Potassium 3.2 L (3.5-5.0) mmol/L Chloride 96 L (101-111) mmol/L Carbon Dioxide 39 H* (21-32) mmol/L Anion Gap 7.0 (6-13) BUN 24 H (6-20) mg/dL Creatinine 1.1 H (0.4-1.0) mg/dL Estimated GFR (MDRD) 49 L (>89) Glucose 125 H (70-100) mg/dL Calcium 8.1 L (8.5-10.3) mg/dL Phosphorus 3.0 (2.5-4.6) mg/dL Magnesium 1.6 L (1.7-2.8) mg/dL Albumin 2.5 L (3.2-5.5) g/dL Last Dose Date UNK Last Dose Time UNK Digoxin 0.7 ng/mL ABX Reporting Has patient been on IV antibiotics over the past 48 hours?: No Assessment/Plan - Problem List (1) Atrial fibrillation with rapid ventricular response Impression: She is back in RVR this morning with heart rates in the 150's. Will continue her oral cardizem and digoxin at this time. If she does not become rate controlled, will try IV cardizem pushes in hopes of keeping her off of the drip. Her potassium is low and we will optimize her electrolytes. If she remains difficult to control, will discuss with cardiology regarding further medical options including the possibility of amiodarone. (2) Cor pulmonale, chronic Impression: Secondary to her severe pulmonary hypertension and has subsequently lead to chronic lower extremity edema. She understand her diagnosis and prognosis. She does not wish to pursue extensive workup and treatment. Will switch to Lasix IV 20mg IV twice daily as she still appears hypervolemic and is complaining of dyspnea this morning. We cannot aggressively diurese her given her soft blood pressures. Palliative has been consulted and appreciate their input regarding the possibility of hospice. (3) Severe pulmonary arterial systolic hypertension Impression: Plan as mentioned above for cor pulmonale. (4) Hypotension Impression: Her blood pressure has been holding in the 90's systolic with oral cardizem and diuresis. Will continue to monitor. (5) Anemia due to GI blood loss Impression: Her hemoglobin remains stable. Will not proceed with EGD and colonoscopy given she would be high risk. Continue to hold coumadin. Continue protonix BID. (6) Metabolic alkalosis Impression: She has contraction alkalosis like secondary to diuretic use. Will give one dose of diamox today. (7) CKD (chronic kidney disease) Impression: Her renal function remains stable. Monitor renal function. (8) Traumatic ecchymosis of thigh Impression: CT revealed hematoma with edema. Continue pain control with tylenol and hold coumadin. Qualifiers: Laterality: left (9) UTI (urinary tract infection) Impression: Prior cultures grew enterococcus and klebsiella. Continue Ceftin to complete 5 days of treatment.. Qualifiers: Urinary tract infection type: acute cystitis Hematuria presence: without hematuria Qualified Code(s): N30.00 - Acute cystitis without hematuria (10) Weakness generalized Impression: Likely multifactorial from prolonged hospitalization, hypotension, cor pulmonale, and pain from the left lower extremity hematoma. PT has begun to work with the patient today and appreciate their recommendations. She will likely require SNF on discharge.
[2019-05-28] MEDS: ACETAMINOPHEN 325 MG TABLET PO PRN (14:00)
[2019-05-28 14:01] LABS: CALCIUM 8.3 mg/dL (8.5-10.3); CREATININE 1.1 mg/dL (0.4-1.0)
[2019-05-28] MEDS: FUROSEMIDE 20 MG/2 ML VIAL IVP SCH (14:03)
[2019-05-28] MEDS: SODIUM CHLORIDE FLUSH 0.9% 10 ML SYRINGE IVP PRN (14:03)
[2019-05-29] MEDS: SODIUM CHLORIDE FLUSH 0.9% 10 ML SYRINGE IVP SCH ×4 (01:00→21:12)
[2019-05-29] MEDS: diltiaZEM 30 MG TABLET PO SCH ×2 (03:29→08:41)
[2019-05-29] MEDS: ZINC OXIDE 20% OINT 30 GM TUBE TOP PRN (03:57)
[2019-05-29 05:07] LABS: VBG PH 7.432 (7.31-7.41)
[2019-05-29 05:11] LABS: BASOPHILS % (AUTO) 0.2 %; EOSINOPHILS # (AUTO) 0.1 10^3/uL (0.0-0.7); EOSINOPHILS % (AUTO) 1.5 %; HGB - HEMOGLOBIN 9.4 g/dL (12.0-16.0); LYMPHOCYTES # (AUTO) 0.7 10^3/uL (1.5-3.5); LYMPHOCYTES % (AUTO) 15.8 %; MEAN CORPUSCULAR HEMOGLOBIN 32.2 pg (27.0-31.0); MEAN CORPUSCULAR HGB CONC 30.9 g/dL (32.0-36.0); MEAN CORPUSCULAR VOLUME 104.1 fL (81.0-99.0); MEAN PLATELET VOLUME 11.2 fL (7.9-10.8); MONOCYTES # (AUTO) 0.3 10^3/uL (0.0-1.0); MONOCYTES % (AUTO) 6.4 %; NEUTROPHILS # (AUTO) 3.5 10^3/uL (1.5-6.6); NEUTROPHILS % (AUTO) 75.5 %; PLT - PLATELET COUNT 53 10^3/uL (130-450); RED BLOOD COUNT 2.92 10^6/uL (4.20-5.40); RED CELL DISTRIBUTION WIDTH 21.3 % (12.0-15.0); WHITE BLOOD COUNT 4.7 x10^3/uL (4.8-10.8)
[2019-05-29 05:19] LABS: ALBUMIN 2.6 g/dL (3.2-5.5); CALCIUM 8.1 mg/dL (8.5-10.3); MAGNESIUM 1.6 mg/dL (1.7-2.8); PHOSPHORUS 2.7 mg/dL (2.5-4.6)
[2019-05-29] MEDS ORDERED: POTASSIUM CHLORIDE 20 MEQ TABLET PO ONE ×2 (05:27→07:36)
[2019-05-29 05:39] LABS: PLATELET ESTIMATE, MANUAL DECREASED (<130,000) (NORMAL)
[2019-05-29] MEDS: MAGNESIUM OXIDE 400 MG TABLET PO SCH ×2 (06:25→12:09)
[2019-05-29] MEDS: SODIUM CHLORIDE FLUSH 0.9% 10 ML SYRINGE IVP PRN (06:25)
[2019-05-29] MEDS: FUROSEMIDE 20 MG/2 ML VIAL IVP SCH (06:25)
[2019-05-29] MEDS: MULTIVITAMIN W/MINERALS TABLET PO SCH (07:57)
[2019-05-29] MEDS: POTASSIUM CHLORIDE 20 MEQ/15 ML UDC PO SCH (07:57)
[2019-05-29] MEDS ORDERED: acetaZOLAMIDE 250 MG TABLET PO SCH (08:30)
[2019-05-29] MEDS: cefUROXime axetil 250 MG TABLET PO SCH (08:40)
[2019-05-29] MEDS: DIGOXIN 125 MCG TABLET PO SCH (08:40)
[2019-05-29] MEDS: NYSTATIN POWDER 15 GM TOP SCH ×2 (08:42→21:12)
[2019-05-29] MEDS: PANTOPRAZOLE 40 MG TABLET PO SCH ×2 (08:43→21:12)
[2019-05-29 11:47] LABS: CALCIUM 8.4 mg/dL (8.5-10.3); CREATININE 1.1 mg/dL (0.4-1.0)
[2019-05-29] MEDS: MIN OIL/DIMETHICON/COCONUT OIL 92 GM TUBE TOP PRN ×4 (12:09→23:14)
[2019-05-29] MEDS: FUROSEMIDE 20 MG TABLET PO SCH (13:45)
--- NOTE | 2019-05-29 15:19 | PROVIDER PROGRESS NOTE ---
Subjective - Prog Note Date Prog Note Date: 05/29/19 - Subjective Subjective: She reports feeling better today. Still feels short of breath at times but she was able to get out of bed and into a chair. She was also able to work with PT today. Reports no chest pain or palpitations. Current Medications - Current Medications Current Medications: Active Medications Acetaminophen (Tylenol) 650 mg PO Q4HR PRN PRN Reason: Pain or Fever > 38C (100.4F) Last Admin: 05/28/19 14:00 Dose: 650 mg Digoxin (Lanoxin) 125 mcg PO DAILY ROMAN Last Admin: 05/29/19 08:40 Dose: 125 mcg Diltiazem HCl (Cardizem Cd) 120 mg PO QPM ROMAN Furosemide (Lasix) 20 mg PO BIDDIURETIC ROMAN Last Admin: 05/29/19 13:45 Dose: 20 mg Sodium Chloride (Normal Saline 0.9%) 500 mls @ 0 mls/hr IV Q24H PRN PRN Reason: TKO RATE Last Infusion: 05/28/19 03:44 Dose: Infused Mineral Oil (Cavilon) 1 applic TOP PRN PRN PRN Reason: Skin Care Last Admin: 05/29/19 12:09 Dose: 1 applic Multi-Ingredient Ointment (Zinc Oxide) 1 applic TOP PRN PRN PRN Reason: Skin Care Last Admin: 05/29/19 03:57 Dose: 1 applic Multivitamins/Minerals (Theragran M) 1 tab PO DAILYWM ROMAN Last Admin: 05/29/19 07:57 Dose: 1 tab Nystatin (Nystop) 1 applic TOP BID ROMAN Last Admin: 05/29/19 08:42 Dose: 1 applic Pantoprazole Sodium (Protonix) 40 mg PO BID ROMAN Last Admin: 05/29/19 08:43 Dose: 40 mg Potassium Chloride () 20 meq PO DAILYWM ROMAN Last Admin: 05/29/19 07:57 Dose: 20 meq Sodium Chloride (Normal Saline Flush 0.9%) 10 ml IVP 0100,0900,1700 ROMAN Last Admin: 05/29/19 08:42 Dose: 10 ml Sodium Chloride (Normal Saline Flush 0.9%) 10 ml IVP PRN PRN PRN Reason: NEEDED PER PROVIDER ORDERS Last Admin: 05/29/19 06:25 Dose: 10 ml Cholecalciferol (Vitamin D3) [Vitamin D3] 4,000 unit PO DAILY 11/05/16 Multivitamin [Multiple Vitamins] 1 each PO DAILY 11/05/16 Simvastatin 20 mg PO QPM 11/05/16 Ciprofloxacin HCl [Cipro] 500 mg PO [id number] 05/23/19 Warfarin Sodium [Coumadin] 2 mg PO TUTHSA@209905/23/19 Warfarin Sodium [Coumadin] 4 mg PO SUMOWEFR@209905/23/19 Acetaminophen 1,000 mg PO DAILY 05/24/19 Aspirin 325 mg PO 1-2XD 05/25/19 Objective - Vital Signs/Intake & Output Reviewed Vital Signs: Yes Vital Signs: Vital Signs x48h Pulse Resp BP BP Pulse Ox 05/29/19 15:00 73 14 88/72 L 98 05/29/19 14:00 75 19 95/59 L 97 05/29/19 13:00 77 16 87/59 L 98 05/29/19 12:00 79 20 91/58 L 97 05/29/19 11:00 83 16 96/62 95 05/29/19 10:00 77 17 89/55 L 97 05/29/19 09:00 80 18 89/58 L 96 05/29/19 08:41 98/57 L 05/29/19 08:00 76 19 98/60 97 Intake & Output: Intake & Output 05/26/19 05/27/19 05/28/19 05/29/19 23:59 23:59 23:59 23:59 Intake Total 1306.000 955.724 4236.333 570 Output Total 2195 2218 2235 1237 Balance -889.000 -1563.167 -1041.667 -667 - Objective General Appearance: positive: No acute distress, Alert Eyes Bilateral: positive: Normal inspection, Conjunctivae nml ENT: positive: Other (Nasal cannula in place) Neck: positive: Nml inspection Respiratory: positive: No respiratory distress, Other (Diminished breath sounds.). negative: Wheezes, Rhonchi Cardiovascular: positive: Regular rate & rhythm, No murmur. negative: Tachycardia, Bradycardia, Systolic murmur, Diastolic murmur Abdomen: positive: Non-tender, No distention Skin: positive: Other (Large area of ecchymoses over the lateral aspect of her left leg. Dressing in place over her bilateral feet.) Extremities: positive: Full ROM, Pedal edema (+2 pitting edema in bilateral lower extremities) Neurologic/Psychiatric: positive: Oriented x3, Motor nml. negative: Disoriented to person, Disoriented to place, Disoriented to time - Lab Results Fish Bones: 05/29/19 04:30 05/29/19 11:05 Other Labs: Lab Results x24hrs 05/29/19 05/29/19 05/29/19 Range/Units 11:05 04:30 04:30 WBC (4.8-10.8) x10^3/uL RBC (4.20-5.40) 10^6/uL Hgb (12.0-16.0) g/dL Hct (37.0-47.0) % MCV (81.0-99.0) fL MCH (27.0-31.0) pg MCHC (32.0-36.0) g/dL RDW (12.0-15.0) % Plt Count (130-450) 10^3/uL MPV (7.9-10.8) fL Neut # (Auto) (1.5-6.6) 10^3/uL Lymph # (Auto) (1.5-3.5) 10^3/uL [place] # (Auto) (0.0-1.0) 10^3/uL Eos # (Auto) (0.0-0.7) 10^3/uL Baso # (Auto) (0.0-0.1) 10^3/uL Absolute Nucleated RBC x10^3/uL Nucleated RBC % /100WBC Manual Slide Review Platelet Estimate (NORMAL) RBC Morph Micro Appear (NORMAL) VBG pH 7.432 H (7.31-7.41) Ionized Calcium 1.03 L (1.15-1.33) mmol/L Sodium 139 139 (135-145) mmol/L Potassium 3.8 3.0 L (3.5-5.0) mmol/L Chloride 92 L 91 L (101-111) mmol/L Carbon Dioxide 40 H* 41 H* (21-32) mmol/L Anion Gap 7.0 7.0 (6-13) BUN 20 21 H (6-20) mg/dL Creatinine 1.1 H 1.0 (0.4-1.0) mg/dL Estimated GFR (MDRD) 49 L 54 L (>89) Glucose 135 H 104 H (70-100) mg/dL Calcium 8.4 L 8.1 L (8.5-10.3) mg/dL Phosphorus 2.7 (2.5-4.6) mg/dL Magnesium 1.6 L (1.7-2.8) mg/dL Albumin 2.6 L (3.2-5.5) g/dL Crossmatch IS Only 05/29/19 05/25/19 Range/Units 04:30 19:20 WBC 4.7 L (4.8-10.8) x10^3/uL RBC 2.92 L (4.20-5.40) 10^6/uL Hgb 9.4 L (12.0-16.0) g/dL Hct 30.4 L (37.0-47.0) % MCV 104.1 H (81.0-99.0) fL MCH 32.2 H (27.0-31.0) pg MCHC 30.9 L (32.0-36.0) g/dL RDW 21.3 H (12.0-15.0) % Plt Count 53 L (130-450) 10^3/uL MPV 11.2 H (7.9-10.8) fL Neut # (Auto) 3.5 (1.5-6.6) 10^3/uL Lymph # (Auto) 0.7 L (1.5-3.5) 10^3/uL [place] # (Auto) 0.3 (0.0-1.0) 10^3/uL Eos # (Auto) 0.1 (0.0-0.7) 10^3/uL Baso # (Auto) 0.0 (0.0-0.1) 10^3/uL Absolute Nucleated RBC 0.00 x10^3/uL Nucleated RBC % 0.0 /100WBC Manual Slide Review Indicated Platelet Estimate DECREASED (<130,000) (NORMAL) RBC Morph Micro Appear 1+ POLYCHROMASIA (NORMAL) VBG pH (7.31-7.41) Ionized Calcium (1.15-1.33) mmol/L Sodium (135-145) mmol/L Potassium (3.5-5.0) mmol/L Chloride (101-111) mmol/L Carbon Dioxide (21-32) mmol/L Anion Gap (6-13) BUN (6-20) mg/dL Creatinine (0.4-1.0) mg/dL Estimated GFR (MDRD) (>89) Glucose (70-100) mg/dL Calcium (8.5-10.3) mg/dL Phosphorus (2.5-4.6) mg/dL Magnesium (1.7-2.8) mg/dL Albumin (3.2-5.5) g/dL Crossmatch IS Only See Detail ABX Reporting Has patient been on IV antibiotics over the past 48 hours?: No Assessment/Plan - Problem List (1) Atrial fibrillation with rapid ventricular response Impression: She has now been rate controlled and in a sinus rhythm over 24 hours on cardizem PO and Digoxin. Will transition to long acting Cardizem and continue digoxin. (2) Cor pulmonale, chronic Impression: Secondary to her severe pulmonary hypertension and has subsequently lead to chronic lower extremity edema. We discussed her prognosis further today and she understands that the underlying problem is her heart and there is not a fix for this. She told me today that she would like to focus on comfort if she were to decline from a respiratory point of view. She would ultimately like to end up at home but understands she must go to a SNF for PT to get stronger so that she can go home. Will transition to her oral diuretics today in preparation for d ischarge tomorrow. (3) Severe pulmonary arterial systolic hypertension Impression: Plan as mentioned above for cor pulmonale. (4) Hypotension Impression: Her blood pressure has been stable in the 90's systolic. Will transition to long acting cardizem. (5) Anemia due to GI blood loss Impression: Her hemoglobin is improving. Will not proceed with EGD or colonscopy given her goals of care. Discontinue Coumadin on discharge. Continue oral protonix. (6) Metabolic alkalosis Impression: She has contraction alkalosis like secondary to diuretic use. Will give another dose of diamox today and discontinue IV diuresis. (7) CKD (chronic kidney disease) Impression: Her renal function remains stable. (8) Traumatic ecchymosis of thigh Impression: Stable. Continue Tylenol PRN. No Coumadin on discharge. Qualifiers: Laterality: left (9) Weakness generalized Impression: Likely multifactorial from prolonged hospitalization and cor pulmonale. She has been getting stronger each day and working with PT. Will be discharged to SNF as recommended by PT. (10) UTI (urinary tract infection) Impression: Completed a course of Ceftin. Qualifiers: Urinary tract infection type: acute cystitis Hematuria presence: without hematuria Qualified Code(s): N30.00 - Acute cystitis without hematuria
[2019-05-29] MEDS ORDERED: diltiaZEM CD 120 MG CAPSULE PO SCH (18:00)
[2019-05-30] MEDS: ACETAMINOPHEN 325 MG TABLET PO PRN ×2 (00:20→06:11)
[2019-05-30 04:43] LABS: BASOPHILS % (AUTO) 0.2 %; EOSINOPHILS # (AUTO) 0.1 10^3/uL (0.0-0.7); EOSINOPHILS % (AUTO) 2.5 %; LYMPHOCYTES # (AUTO) 0.6 10^3/uL (1.5-3.5); LYMPHOCYTES % (AUTO) 14.9 %; MEAN CORPUSCULAR HEMOGLOBIN 32.1 pg (27.0-31.0); MEAN CORPUSCULAR VOLUME 103.6 fL (81.0-99.0); MEAN PLATELET VOLUME 10.2 fL (7.9-10.8); MONOCYTES # (AUTO) 0.3 10^3/uL (0.0-1.0); MONOCYTES % (AUTO) 7.5 %; NEUTROPHILS % (AUTO) 74.2 %; PLT - PLATELET COUNT 49 10^3/uL (130-450); RED CELL DISTRIBUTION WIDTH 21.4 % (12.0-15.0)
[2019-05-30 04:48] LABS: ALBUMIN 2.6 g/dL (3.2-5.5); CALCIUM 8.5 mg/dL (8.5-10.3)
[2019-05-30 05:17] LABS: PLATELET ESTIMATE, MANUAL DECREASED (<130,000) (NORMAL)
[2019-05-30] MEDS: FUROSEMIDE 20 MG TABLET PO SCH (06:13)
--- NOTE | 2019-05-30 08:18 | Discharge Plan ---
"Discharge Plan for SNF / [facility] - Discharge Plan And Transition Orders Problem Reviewed?: Yes Disposition: 03 SNF DC/Xfer Condition: Stable Allergies and Adverse Reactions: Allergies Allergy/AdvReac Type Severity Reaction Status Date / Time Penicillins Allergy Unknown Verified 05/23/19 16:46 Health Concerns: The patient was admitted for heart failure and anemia. A repeat echo completed this admission showed a preserved EF but she had an enlarged right heart and significantly increased RVSP of 113 mmHg. She was gently diuresed with IV lasix as she was borderline hypotensive with systolic in the 90's and ultimately transitioned to oral diuretics. She was also found to be in atrial fibrillation with RVR and rates in the 150's. She was started on Digoxin and cardizem drip. Her rates were controlled with these two medications and she was continued on oral Digoxin and Cardizem. Her rates are now controlled in the 70's and she is in sinus rhythm. She was anemic and her stool occult was positive. There was a plan initially for EGD and Colonoscopy but because of her worsening echo findings, this was cancelled as she would be high risk. Her coumadin for her atrial fibrillation has been discontinued as well as her aspirin. The patient does not want aggressive measures and prefers a conservative approach. Her hemoglobin has remained stable throughout the hospitalization in the 9's. She also has a large area of ecchymoses over her left lower extremity. CT scan was completed which did reveal a hematoma. Her pain has been controlled with Tylenol. Her anticoagulation has been discontinued. She did complete a course of Ceftin while here in the hospital for a UTI. She has hypotension at baseline and her blood pressure has been stable in the 90's. This is with her receiving Cardizem. She is asymptomatic. Plan of Treatment: She will need to continue oral Dixogin and Cardizem to control her atrial fibrillation. Her cardizem should be held if her blood pressure is less than 90 systolic. She will need to continue oral Protonix given that her stool was positive for blood. She will also continue Lasix 20mg PO BID. Coumadin and Aspirin have been discontinued. Please have the patient evaluated by Podiatry, Dr. Ferrari, for her toe nails. They will need to be cut and this will help her with ambulation. Care Goals: She has been working with PT here and this will need to be continued. - SNF / [facility] Transition Orders Admit to (Facility): [facility] Discharge Diagnosis: Atrial fibrillation w/ RVR Cor pulmonale, chronic Severe pulmonary arterial systolic hypertension Hypotension Anemia due to GI blood loss Metabolic Alkalosis CKD Traumatic ecchymosis of left thigh Weakness generalized UTI Medicare Certification Statement: I certify that Post Hospital assisted care is medically necessary on a continuing basis for any of the conditions for which she/he is receiving care during hospitalization. Notify PCP of admission and forward orders to primary provider for signature. Weight on admission and: Weekly Other Notification Orders: Call PCP immediately if patient develops dyspnea, chest pain/tightness or edema. House Bowel Program: No Additional Bowel Program Orders: If no BM after 2 days, nurse may give M.O.M. 30ml PO PRN and/or ducolax Supp 1 NC and/or SHILPI 250mg P.O., and/or senna 1-2 tabs PO. On day 3 nurse may give repeat above order until residents constipation is resolved. Oxygen Orders: 3L of oxygen via nasal cannula Medication Orders: PLEASE REFER TO THE DISCHARGE MEDICATION LIST. Insulin Orders?: No - Medications New Prescriptions: Acetaminophen [Tylenol] 1,000 mg PO Q8HR PRN #30 tablet PRN Reason: Pain Digoxin [Lanoxin] 125 mcg PO DAILY #30 tablet [id number] CD [Cardizem Cd] 120 mg PO QPM #30 capsule Furosemide [Lasix] 20 mg PO BIDDIURETIC #30 tablet Nystatin [Nystop] 1 applic TOP BID #1 bottle Pantoprazole [Protonix] 40 mg PO QDAC #30 tablet Potassium Chloride 20 meq PO DAILY #200 ml - Diet Type: Cardiac Texture: Regular Liquids: Thin - Therapies | Activity Therapy: Evaluation | Treat if indicated: PT Rehabilitation Potential: Return to independent living Activity: No Restrictions Weight Bearing: Full Weight Assistance Devices: Walker"
[2019-05-30] MEDS ORDERED: PANTOPRAZOLE 40 MG TABLET PO SCH (09:00)
[2019-05-30] MEDS: POTASSIUM CHLORIDE 20 MEQ/15 ML UDC PO SCH (09:12)
[2019-05-30] MEDS: MULTIVITAMIN W/MINERALS TABLET PO SCH (09:12)
[2019-05-30] MEDS: DIGOXIN 125 MCG TABLET PO SCH (09:16)
[2019-05-30] MEDS: SODIUM CHLORIDE FLUSH 0.9% 10 ML SYRINGE IVP SCH (09:17)
[2019-05-30] MEDS: NYSTATIN POWDER 15 GM TOP SCH (09:18)
--- NOTE | 2019-05-30 10:36 | CONSULTATION NOTE ---
Palliative Care Follow Up - Referral Referring Provider: Jackeline Flores MD Time of Visit: [id number] Referral setting: Hospitalized patient Referral Reason: Goals of Care - Information Sources Records reviewed: Previous records reviewed History/Review of Systems obtained from: Patient Exam limitations: No limitations - History of Present Illness Update Brief HPI Update: This is a 73-year-old woman who is getting ready for discharge, was admitted with cor pulmonale/atrial fib with RVR/failure to thrive. She has had ongoing decline with lower extremity edema worsening over the last month, functional decline over the last year and more acutely over the last several weeks, and now presents acutely weak, but is improving slowly as far as stabilizing her cardiac and respiratory status. She does remain quite frail, she is as she calls her self "like a noodle", still is only able to transfer with a lift, just had her Thornton removed and has voided, She is quite pragmatic, and we have agreed to do her POLST, to reflect her goals where she is currently. She will need this for admission to her SNF, awaiting final acceptance. Patient's goals are to be able to stand and pivot, ambulate a few steps, and return home to her familiar environment. She is hoping for a care plan to be able to support her to transition home after she finishes SNF stay. Though she does understand with her seriousness of her illness, she may decline or not improve enough to be independent again and remains short of breath with any kind of activity. We are meeting today to complete an update POLST to communicate her goals and assist with her transition to SNF. Social History - Living Situation Living arrangement: At home Living Situation: Alone Support System: Patient has been somewhat of an introvert, she has had some assistance with meal prep and support from her brother and [id number]. They are not able to be caregivers though. Her brother manages her finances, and oversees her care the last few weeks. He is due back in town over the weekend. Is aware of that she is seriously ill, and is hoping to put both a short-term and long-term care plan in place to meet her needs. Medications/Allergies - Medications Active Medication List: Active Medications Acetaminophen (Tylenol) 650 mg PO Q4HR PRN PRN Reason: Pain or Fever > 38C (100.4F) Last Admin: 05/30/19 06:11 Dose: 650 mg Digoxin (Lanoxin) 125 mcg PO DAILY [facility] Last Admin: 05/30/19 09:16 Dose: 125 mcg Diltiazem HCl (Cardizem Cd) 120 mg PO QPM [facility] Last Admin: 05/29/19 17:40 Dose: 120 mg Furosemide (Lasix) 20 mg PO BIDDIURETIC [facility] Last Admin: 05/30/19 06:13 Dose: 20 mg Sodium Chloride (Normal Saline 0.9%) 500 mls @ 0 mls/hr IV Q24H PRN PRN Reason: TKO RATE Last Infusion: 05/28/19 03:44 Dose: Infused Mineral Oil (Cavilon) 1 applic TOP PRN PRN PRN Reason: Skin Care Last Admin: 05/29/19 23:14 Dose: 1 applic Multi-Ingredient Ointment (Zinc Oxide) 1 applic TOP PRN PRN PRN Reason: Skin Care Last Admin: 05/29/19 03:57 Dose: 1 applic Multivitamins/Minerals (Theragran M) 1 tab PO DAILYWM [facility] Last Admin: 05/30/19 09:12 Dose: 1 tab Nystatin (Nystop) 1 applic TOP BID [facility] Last Admin: 05/30/19 09:18 Dose: 1 applic Pantoprazole Sodium (Protonix) 40 mg PO QDAC [facility] Last Admin: 05/30/19 09:16 Dose: 40 mg Potassium Chloride () 20 meq PO DAILYWM [facility] Last Admin: 05/30/19 09:12 Dose: 20 meq Sodium Chloride (Normal Saline Flush 0.9%) 10 ml IVP 0100,0900,1700 [facility] Last Admin: 05/30/19 09:17 Dose: 10 ml Sodium Chloride (Normal Saline Flush 0.9%) 10 ml IVP PRN PRN PRN Reason: NEEDED PER PROVIDER ORDERS Last Admin: 05/29/19 06:25 Dose: 10 ml Cholecalciferol (Vitamin D3) [Vitamin D3] 4,000 unit PO DAILY 11/05/16 Multivitamin [Multiple Vitamins] 1 each PO DAILY 11/05/16 Simvastatin 20 mg PO QPM 11/05/16 Ciprofloxacin HCl [Cipro] 500 mg PO [id number] 05/23/19 Warfarin Sodium [Coumadin] 2 mg PO TUTHSA@2100 10/11/19 Warfarin Sodium [Coumadin] 4 mg PO SUMOWEFR@2100 05/23/19 Acetaminophen 1,000 mg PO DAILY 05/24/19 Aspirin 325 mg PO 1-2XD 05/25/19 - Allergies Allergies/Adverse Reactions: Allergies Allergy/AdvReac Type Severity Reaction Status Date / Time Penicillins Allergy Unknown Verified 05/23/19 16:46 Review of Systems - Constitutional Constitutional: reports: Fatigue, Weight loss. denies: Fever - Eyes Eyes: reports: Vision loss, Corrective lenses - Ears, Nose & Throat Ears, Nose & Throat: reports: Dental decay - Cardiovascular Cardiovascular: reports: Exertional dyspnea, Decr. exercise tolerance - Respiratory Respiratory: reports: SOB at rest, SOB with exertion. denies: Wheezing - Gastrointestinal Gastrointestinal: reports: Diarrhea (intermittent), Early satiety. denies: Nausea, Reflux/heartburn - Genitourinary Genitourinary: reports: Other (just had thornton removed) - Musculoskeletal Musculoskeletal: reports: Stiffness, Muscle weakness, Transfer issues (has needed lift for safe transfers) - Integumentary Integumentary: reports: Dryness - Neurological Neurological: reports: General weakness. denies: Memory problems - Psychiatric Psychiatric: denies: Depression, Anxiety - Endocrine Endocrine: reports: Intolerance to cold - Hematologic/Lymphatic Hematologic/Lymphatic: reports: Anemia, Recurrent infections (treated for UTI) - All Other Systems All Other Systems: reports: Reviewed and negative Physical Exam - Vital Signs Vital Signs: Vital Signs x48h Temp Pulse Resp BP Pulse Ox 05/30/19 08:33 36.6 C 79 18 95/58 L 99 05/30/19 04:00 74 15 89/53 L - Physical Exam General Appearance: positive: No acute distress, Alert Eyes Bilateral: positive: Normal inspection ENT: positive: No signs of dehydration Neck: positive: No JVD, Trachea midline Cardiovascular: positive: Regular rate & rhythm (back in sinus rhythm) Respiratory: positive: Diminished in bases. negative: No respiratory distress (increased respiratory rate with any movement) Abdomen: positive: Non-tender, Soft Skin: positive: Pallor, Dryness, Bruising (fading hematoma/hydrogenation still operator left thigh; pooling in ankle), Other (LE wounds from blisters;) Extremities: positive: Pedal edema (improved but 3=4+) Neurologic/Psychiatric: positive: Oriented x3, Mood/affect nml, Weakness, Flat affect Palliative Care - POLST Patient has POLST: Yes POLST Status: DNR, Comfort Measures (completed new POLST; put in record/original with patient; copy to [facility] for transport and [facility]; see PC discussion) Pain: No pain, Comment (patient with tenderness on left foot with movement/pressure; scoliosis with back pain with poor positioning; does better up in chair; tailbone tender) Tiredness/Fatigue: Severe (7-10) Drowsiness/Sedation: Mild (1-3) Nausea: None Depression: None Anxiety: Mild (1-3) Dyspnea: Moderate (4-6) Anorexia: Moderate (4-6) Sleep: Sleep improved Constipation: No Feelings of wellbeing/Perceived Quality of Life: Fair, Acceptable, Worsening - Palliative Care Discussion: Patient does and is able to verbalize her understanding of the severity of her illness including severe pulmonary hypertension, her irregular heart rhythms, and expected further decline. She is hoping after this hospitalization for some stabilization, but does understand she could continue to deteriorate. Her best case scenario, or hope for the best is that she can regain as much independence as possible, which is limited given her functional decline over the last several weeks, but would appreciate being able to toilet herself, stay in her own home, and have support for as long as possible if her underlying physical health are able to improve. If she were to continue to decline, she would not want to return back to the hospital, she is quite clear with this, she does understand that this could be indication of the progression of her disease, and she would not want her suffering prolonged or life extended. She would like to be comfortable, she would like not to have shortness of breath, and be allowed to have medication that keeps her comfortable and out of any kind of distress. We did discuss in the context of her current goals, she would be going to SNF for skilled care, with the focus on trying to meet her goals of independence, her improved functional status. She does understand if she is continued to deteriorate, then we would revisit enlisting hospice support and comfort measures for an end-of-life event. She does believe she is going to heaven, denies any spiritual emotional distress, and remains quite pragmatic in her approach to her decision-making. Results - Lab Results Lab results reviewed: Yes Fish Bones: 05/30/19 04:30 05/30/19 04:30 Lab and Imaging Results: Lab Results x24hrs 05/30/19 05/30/19 05/29/19 Range/Units 04:30 04:30 11:05 WBC 4.0 L (4.8-10.8) x10^3/uL RBC 2.80 L (4.20-5.40) 10^6/uL Hgb 9.0 L (12.0-16.0) g/dL Hct 29.0 L (37.0-47.0) % MCV 103.6 H (81.0-99.0) fL MCH 32.1 H (27.0-31.0) pg MCHC 31.0 L (32.0-36.0) g/dL RDW 21.4 H (12.0-15.0) % Plt Count 49 L (130-450) 10^3/uL MPV 10.2 (7.9-10.8) fL Neut # (Auto) 3.0 (1.5-6.6) 10^3/uL Lymph # (Auto) 0.6 L (1.5-3.5) 10^3/uL [place] # (Auto) 0.3 (0.0-1.0) 10^3/uL Eos # (Auto) 0.1 (0.0-0.7) 10^3/uL Baso # (Auto) 0.0 (0.0-0.1) 10^3/uL Absolute Nucleated RBC 0.00 x10^3/uL Nucleated RBC % 0.0 /100WBC Manual Slide Review Indicated Platelet Estimate DECREASED (<130,000) (NORMAL) RBC Morph Micro Appear 1+ POLYCHROMASIA (NORMAL) Sodium 140 139 (135-145) mmol/L Potassium 3.5 3.8 (3.5-5.0) mmol/L Chloride 94 L 92 L (101-111) mmol/L Carbon Dioxide 38 H 40 H* (21-32) mmol/L Anion Gap 8.0 7.0 (6-13) BUN 20 20 (6-20) mg/dL Creatinine 1.0 1.1 H (0.4-1.0) mg/dL Estimated GFR (MDRD) 54 L 49 L (>89) Glucose 115 H 135 H (70-100) mg/dL Calcium 8.5 8.4 L (8.5-10.3) mg/dL Albumin 2.6 L (3.2-5.5) g/dL Impression and Recommendations - Palliative Care Impression: Is a 73-year-old woman with worsening pulmonary hypertension/cor pulmonale, atrial fib with rapid ventricular response, and acute functional decline. She has had some improvement in her underlying disease processes with some stabilization. She is still continues present with dyspnea, lower extremity edema, wound care needs, generalized weakness and severe fatigue. Palliative care to follow patient over at SNF, provide support regarding goals of care and at appropriate time transition to hospice. Recommendations/Counseling Done: 1. Generalized weakness. Patient continues to be quite weak, and presents with dyspnea. She is hoping for some improvement in her functional status and return to some level of independence so she understands this will be limited in nature. Her hope for the best is to return home, but is aware that she would need further support or to be more functional. Her brother is her D POA for finances as well, and will be filling out [employer] application, can continue to evaluate whether [facility] for support would be appropriate versus long-term care support if requires increased care at time of SNF discharge. 2.Advanced care planning. Time spent in counseling and follow-up and defining goals of care, please see advanced care planning conversation. Patient's POLST is completed with DNA R/comfort measures, with goal not to return to the hospital and if at end of life a comfortable and respectful . Would like to return home if she does stabilize, does perceive she will need some support, this level of support will inform next steps. She does not feel at home, but would like not to have any pain or suffering and have a comfortable transition. [facility] Time Spent: 25 minutes with greater than 50% of this done in counseling regarding goals of care, plan to see patient on Sunday at SNF, and obtain outpatient referral.
[2019-05-30] MEDS: ZINC OXIDE 20% OINT 30 GM TUBE TOP PRN (11:24)
[2019-05-30 12:24] VITALS: BP 84/53
--- NOTE | 2019-05-30 12:59 | DISCHARGE SUMMARY ---
"Discharge Summary Admit Date: 05/23/19 Discharge Date: 05/30/19 Discharging Provider: Dr. Greg Powell Primary Care Provider: Dr. Haile Flores Code Status: Do Not Attempt Resuscitation Condition at Discharge: Stable Discharge Disposition: SNF DC/Xfer Discharge Facility Name: [facility] - DIAGNOSES Admission Diagnoses: Acute exacerbation of CHF Severe pulmonary arterial systolic hypertension Paroxsymal atrial fibrillation Elevated troponin Supratherapeutic INR GI bleed Hypotension Hyperlipidemia UTI Discharge Diagnoses with Status of Each Condition: Atrial fibrillation w/ RVR - Resolved. Rate controlled in sinus rhyhtm on Cardizem and Digoxin PO. No Coumadin due to GI bleed. Cor pulmonale, chronic - Worse but stable. Started on oral diuretics. Patient does not want aggressive treatment. She would like to focus on comfort. POLST signed by patient Brigida Arnold of Palliative stating she is DNR and would like comfort focused treatment. Severe pulmonary arterial systolic hypertension - Worse but stable. Chronic hypoxic respiratory failure - Stable. Secondary to above. On 3L of oxygen. Hypotension - Stable. Pressure has been stable in the 90's on Cardizem to help control her heart rate. Anemia due to GI blood loss - Stable. No EGD or colonoscopy as she would be high risk. Discontinued coumadin and aspirin. Started on oral Protonix. Metabolic alkalosis - Stable. Likely secondary to IV diuresis. Received Diamox x2. Continue oral diuretics. CKD - Stable. Traumatic ecchymosis of thigh - Stable. CT revealed hematoma. Tylenol PRN for pain. No coumadin or aspirin. Weakness generalized - Slightly improved. Will need continued PT at SNF. UTI - Resolved. Completed course of Ceftin. - HPI History of Present Illness: H&P per Dr. Sequeira on 05/23/19: Patient is a 73 y/o female who presented to the ED with complain of weakness. It was to the extent that she was unable to get up and go to the bathroom. She had fallen 2 days prior as a result of he weakness and presented to the ED. Work up at the time included a CT scan of her head which was unremarkable. She has a urine culture done on 05/20/19 which grew E faecium and Klebsiella. She was prescribed antibiotic by her PCP which she is yet to start. She denied chest pain, dyspnea, abd pain, nausea or vomiting. She complained of black stools. She is on coumadin for a history of PE. In the ED today she was found to have a BNP 4000, INR 4.0 and a SBP of 90. Her hemoglobin is 9. It was 12 three days prior. She has crackles on auscultation of her lungs and significant lower extremity edema with blisters on her feet. She has bruising on her left knee which is tender to palpation. As a result of her presentation and these lab findings, she is being admitted for further treatment. She had a right and left heart cath done in October of [address] [facility] [address] Iesha Fonseca which showed a LVEF of 60%, PA pressure of 55. She was diagnosed with severe pulmonary artery hypertension and nonocclusive CAD. She says she has not been to see the distribution accounting clerk again because she was not willing to try the experimental drug proposed. She also has paroxysmal atrial fibrillation. - CONSULTS | PROCEDURES Consultations: Palliative Care, General Surgery, Wound care. - HOSPITAL COURSE Hospital Course: The patient was admitted for heart failure and anemia. A repeat echo completed this admission showed a preserved EF but she had an enlarged right heart and significantly increased RVSP of 113 mmHg. She was gently diuresed with IV lasix as she was borderline hypotensive with systolic in the 90's and ultimately transitioned to oral diuretics. She was also found to be in atrial fibrillation with RVR and rates in the 150's. She was started on Digoxin and cardizem drip. Her rates were controlled with these two medications and she was continued on oral Digoxin and Cardizem. Her rates are now controlled in the 70's and she is in sinus rhythm. She was anemic and her stool occult was positive. There was a plan initially for EGD and Colonoscopy but because of her worsening echo findings, this was cancelled as she would be high risk. Her coumadin for her atrial fibrillation has been discontinued as well as her aspirin. The patient does not want aggressive measures and prefers a conservative approach. Her hemoglobin has remained stable throughout the hospitalization in the 9's. She also has a large area of ecchymoses over her left lower extremity. CT scan was completed which did reveal a hematoma. Her pain has been controlled with Tylenol. Her anticoagulation has been discontinued. She did complete a course of Ceftin while here in the hospital for a UTI. She signed a POLST form with Brigida Arnold stating that she is a DNR and would like her treatment to be comfort focused. - ALLERGIES Allergies/Adverse Reactions: Allergies Allergy/AdvReac Type Severity Reaction Status Date / Time Penicillins Allergy Unknown Verified 05/23/19 16:46 - MEDICATIONS Home Medications: Ambulatory Orders Medication Instructions Recorded Confirmed Multivitamin [Multiple Vitamins] 1 each PO DAILY 11/05/16 05/24/19 Simvastatin 20 mg PO QPM 11/05/16 05/24/19 Acetaminophen [Tylenol] 1,000 mg PO Q8HR PRN #30 tablet 05/30/19 Digoxin [Lanoxin] 125 mcg PO DAILY #30 tablet 05/30/19 Furosemide [Lasix] 20 mg PO BIDDIURETIC #30 tablet 05/30/19 Nystatin [Nystop] 1 applic TOP BID #1 bottle 05/30/19 Pantoprazole [Protonix] 40 mg PO QDAC #30 tablet 05/30/19 Potassium Chloride 20 meq PO DAILY #200 ml 05/30/19 diltiaZEM CD [Cardizem Cd] 120 mg PO QPM #30 capsule 05/30/19 - PHYSICAL EXAM AT DISCHARGE General Appearance: positive: No acute distress, Alert Eyes Bilateral: positive: Normal inspection ENT: positive: Other (Nasal cannula in place) Neck: positive: Nml inspection Respiratory: positive: No respiratory distress, Other (Diminished breaht sounds.). negative: Wheezes, Rales Cardiovascular: positive: Regular rate & rhythm, No murmur. negative: Tachycardia, Bradycardia Abdomen: positive: Non-tender, No distention. negative: Tenderness Skin: positive: Warm, Dry, Other (Large area of ecchymoses located over the lateral aspect of her left lower extremity. She has dressing in place over the bilateral feet where she had multiple bullae.) Extremities: positive: Pedal edema (+2 pitting edema in bilateral lower extremities) Neurologic/Psychiatric: positive: Oriented x3. negative: Disoriented to person, Disoriented to place, Disoriented to time, Slurred/abnml speech - LABS Result Diagrams: 05/30/19 04:30 05/30/19 04:30 - DIAGNOSTIC IMAGING Diagnostic Imaging Results: Final report reviewed - FOLLOW UP Follow Up: She will follow up with Palliative Care to discuss Hospice. She will need follow up with Dr. Ferrari of Podiatry to trim her toe nails to help her ambulate. - TIME SPENT Time Spent in Discharge (Minutes): 35"
== END 2019-05-30 12:49 | DRG 314 ==
LOC: EDUNIT# → ED 16:41 → ICU 20:02
PROVIDERS: ADMIT Internal Medicine; ATTEND Internal Medicine
DX: I50.9 Heart failure, unspecified (principal); J69.0 Pneumonitis due to inhalation of food and vomit; I27.81 Cor pulmonale (chronic); I50.33 Acute on chronic diastolic (congestive) heart failure; R79.1 Abnormal coagulation profile; R71.0 Precipitous drop in hematocrit; L98.9 Disorder of the skin and subcutaneous tissue, unspecified; R58 Hemorrhage, not elsewhere classified; J96.11 Chronic respiratory failure with hypoxia; E87.3 Alkalosis; K92.1 Melena; Z91.81 History of falling; N30.00 Acute cystitis without hematuria; I47.1 Supraventricular tachycardia; I27.21 Secondary pulmonary arterial hypertension; I48.0 Paroxysmal atrial fibrillation; T50.2X5A Adverse effect of carbonic-anhydrase inhibitors, benzothiadiazides and other diuretics, initial encounter; Y92.230 Patient room in hospital as the place of occurrence of the external cause; B96.1 Klebsiella pneumoniae [K. pneumoniae] as the cause of diseases classified elsewhere; B95.2 Enterococcus as the cause of diseases classified elsewhere; I95.9 Hypotension, unspecified; E78.5 Hyperlipidemia, unspecified; D50.0 Iron deficiency anemia secondary to blood loss (chronic); N18.9 Chronic kidney disease, unspecified; S80.02XA Contusion of left knee, initial encounter; S70.12XA Contusion of left thigh, initial encounter; W19.XXXA Unspecified fall, initial encounter; R23.8 Other skin changes; I25.10 Atherosclerotic heart disease of native coronary artery without angina pectoris; D69.6 Thrombocytopenia, unspecified; K42.9 Umbilical hernia without obstruction or gangrene; R62.7 Adult failure to thrive; I73.9 Peripheral vascular disease, unspecified; I87.8 Other specified disorders of veins; B35.1 Tinea unguium; E03.9 Hypothyroidism, unspecified; M41.9 Scoliosis, unspecified; M53.3 Sacrococcygeal disorders, not elsewhere classified; R63.0 Anorexia; R68.81 Early satiety; E87.6 Hypokalemia; Z66 Do not resuscitate; Z51.5 Encounter for palliative care; Z60.2 Problems related to living alone; Z68.34 Body mass index [BMI] 34.0-34.9, adult; Z79.01 Long term (current) use of anticoagulants; Z79.82 Long term (current) use of aspirin; Z86.711 Personal history of pulmonary embolism; Z99.81 Dependence on supplemental oxygen; Z79.899 Other long term (current) drug therapy; Z86.73 Personal history of transient ischemic attack (TIA), and cerebral infarction without residual deficits; Z87.09 Personal history of other diseases of the respiratory system; Z74.01 Bed confinement status; Z87.19 Personal history of other diseases of the digestive system
CPT/HCPCS: 36415; 71045; 73700; 80048; 80053; 80162; 81001; 82040; 82272; 82330; 83605; 83690; 83735; 83880; 84100; 84132; 84443; 84484; 85025; 85027; 85610; 86850; 86900; 86901; 86920; 87040; 87150; 93005; 93306; 96374; 97110; 97162; 97166; 97530; 99222; 99232; 99283; 99285; A6250; A9270; J0153; 81003; 87086

== ENCOUNTER 2019-06-04 20:16 | Outpatient (CLI) | payer MEDICARE, OTHER ==
--- NOTE | 2019-06-04 20:19 | CONSULTATION NOTE ---
Palliative Care Follow Up - Referral Referring Provider: Dr. Spencer Robb (for Dr. Flores) Time of Visit: 8688-4782 Referral setting: [facility] Referral Reason: Pulmonary HTN/FTT/Goals of Care - Information Sources Records reviewed: Previous records reviewed History/Review of Systems obtained from: Patient Exam limitations: No limitations - History of Present Illness Update Brief HPI Update: This is a 73-year-old woman who I have meant on the inpatient unit ICU, who was hospitalized at [facility] from 06/21/2019 to 05/30/2019 as a result of cor pulmonale, atrial fib with RVR, severe pulmonary arterial systolic hypertension, as well as anemia due to GI blood loss. Patient has had an acute decline over the last several weeks, with decreasing functional status worsening respiratory and cardiac status lower extremity edema, and a fall prior to admit that resulted in a severe and ongoing hematoma of her left thigh. Patient has been expecting ongoing decline, she does understand the seriousness of her illness, and was actually focusing on a palliative approach when she was diagnosised originally with PAH in 10/2017. At that time she had a right and left heart cath done at [facility], and showed an LVEF of 60%, and a PA pressure of 55. Her echo on admission at [facility] showed a preserved EF but she had enlarged right heart and significantly increased R VSP of 113.. Unfortunately this acute decline has resulted in loss of her independence, she does live by herself, she has a support of her brother but no primary caregivers, and presents with fairly high symptom burden today. Patient reports her weakness is improved only slightly, she is working with physical therapy, they are still needing to use a Freya lift for transfers. She does report she has been dangling outside of the bed, and has been able to stand with a walker. Her goal is to be able to ambulate and toilet herself, within her apartment. She is impacted both by her lower extremity edema, weakness, and pain in her left thigh from her hematoma/fall. She also describes some intermittent air hunger, her O2 sats on 3 L are at 91%. She denies any chest pain, cough, or noting any palpitations or tachycardia. Her pain in her left thigh is quite severe, exacerbated by touch or pressure, it is relieved with intermittent acetaminophen. And she continues with high levels of fatigue, poor activity tolerance, and feeling of exhaustion. Social History - Living Situation Living arrangement: At home Living Situation: Alone Support System: Patient lives at home by herself and apartment, that is overseeing and own by her brother. She actually up to about 6 weeks ago, was driving and independent, has needed increased help over the last few weeks with her declining functional status. Her brother oversees her finances, and speaking to her brother, she has very little income, he does help advocate for her and oversee her care. She has not needed much prior to this other than assistance with finances. Patient is an introvert, with very little social support, Her biggest enjoyment is watching TV as well as reading voraciously Medications/Allergies - Medications Home Medications: Ambulatory Orders Medication Instructions Recorded Confirmed Multivitamin [Multiple Vitamins] 1 each PO DAILY 11/05/16 05/24/19 Simvastatin 20 mg PO QPM 11/05/16 06/05/19 Acetaminophen [Tylenol] 1,000 mg PO Q8HR PRN #30 tablet 05/30/19 06/05/19 Digoxin [Lanoxin] 125 mcg PO DAILY #30 tablet 05/30/19 06/05/19 Furosemide [Lasix] 20 mg PO BIDDIURETIC #30 tablet 05/30/19 06/05/19 Nystatin [Nystop] 1 applic TOP BID #1 bottle 05/30/19 06/05/19 Potassium Chloride 20 meq PO DAILY #200 ml 05/30/19 06/05/19 diltiaZEM CD [Cardizem Cd] 120 mg PO QPM #30 capsule 05/30/19 06/05/19 Bisacodyl Supp [Dulcolax Supp] 10 mg MI DAILY PRN 06/05/19 06/05/19 Magnesium Hydroxide [Milk of 30 ml PO DAILY PRN 06/05/19 06/05/19 Magnesia] Pantoprazole [Protonix] 40 mg PO DAILY 06/05/19 06/05/19 Sennosides [Senna Lax] 1 - 2 tab PO BID PRN 06/05/19 06/05/19 - Allergies Allergies/Adverse Reactions: Allergies Allergy/AdvReac Type Severity Reaction Status Date / Time Penicillins Allergy Unknown Verified 05/23/19 16:46 Review of Systems - Constitutional Constitutional: reports: Fatigue, Poor appetite, Weight loss. denies: Fever, Chills - Eyes Eyes: reports: Vision loss, Corrective lenses - Ears, Nose & Throat Ears, Nose & Throat: reports: Nasal congestion, Dental decay, Other (reports choking and coughing with eating) - Cardiovascular Cardiovascular: reports: Irregular heart rate, Palpitations, Edema, Lightheadedness, Exertional dyspnea, Decr. exercise tolerance, Orthopnea - Respiratory Respiratory: reports: SOB at rest, SOB with exertion - Gastrointestinal Gastrointestinal: reports: Diarrhea (reports continued loose stools), Early satiety. denies: Nausea - Genitourinary Genitourinary: denies: Dysuria - Musculoskeletal Musculoskeletal: reports: Back pain, Stiffness, Limited range of motion, Muscle weakness, Transfer issues (freya lift currently) - Integumentary Integumentary: reports: Dryness, Other (blisters LE) - Neurological Neurological: reports: General weakness, Other (notes some decrease in clarity) - Psychiatric Psychiatric: reports: Anxiety. denies: Depression - Endocrine Endocrine: reports: Intolerance to cold - Hematologic/Lymphatic Hematologic/Lymphatic: reports: Anemia (hgb 9.0), Bruising (large hematoma left thigh), Recurrent infections (recent UTI) - All Other Systems All Other Systems: reports: Reviewed and negative Physical Exam - Vital Signs Temperature: 96.7 C Pulse Rate: 73 Respiratory Rate: 18 O2 Saturation: 91 (on 3 liters) Blood Pressure: 92/52 (has continued with hypotension) - Physical Exam General Appearance: positive: Alert, Mild distress, Other (144.2 weight) Eyes Bilateral: positive: Normal inspection Neck: positive: No JVD, Trachea midline Cardiovascular: positive: Irregularly irregular Respiratory: positive: Diminished in bases (right greater than left). negative: No respiratory distress (mild respiratory increase in effort with conversation; tires easily), Wheezes, Rales, Rhonchi Abdomen: positive: Soft Skin: positive: Pallor, Wound (bilateral blisters/kerlix in place/reports skin denuded/ checked with RN who did wound care reports no s/s of infections), Pressure wound (coccyx) Extremities: positive: Pedal edema (3-4+; left greater than right; patient reports improved from previous baseline this last month) Neurologic/Psychiatric: positive: Oriented x3, Mood/affect nml, Weakness, Flat affect Palliative Care - POLST Patient has POLST: Yes POLST Status: DNR, Comfort Measures Pain: Pain unchanged, Location (left thigh with hematoma; worse with touch; chronic low grade back pain related to scoliosis improved when sitting in chair) Tiredness/Fatigue: Severe (7-10) Drowsiness/Sedation: Moderate (4-6) Nausea: None Depression: Mild (1-3) Anxiety: Mild (1-3) Dyspnea: Moderate (4-6) Anorexia: Moderate (4-6) Sleep: Variable sleep pattern Constipation: No Feelings of wellbeing/Perceived Quality of Life: Fair, Worsening Performance Status: Patient can self feed, otherwise is totally dependent for all ADLs, dressing, toileting, and bathing. She is currently a Freya lift,. The goal is for pivot transfers, and independent ambulation for short distances with walker. - Palliative Care Discussion: Patient is hoping for the best, in the context of improvement in functional status. She would very much like to be home, we did discuss though at length regarding threshold for being able to manage at home, even with assistance. Patient is aware her health is continued to deteriorate, reports staff have been quite kind and supportive, but prefers her solitary lifestyle and own apartment. She remains quite pragmatic regarding her underlying serious illness, but is willing to work with rehab staff to improve both her quantity and quality of life. Follow-up with brother ROB, as he is helping navigate transition plan. Did follow-up with SNF staff regarding pending care conference. Answered questions regarding [facility] program versus long-term care placement, encouraged to follow-up with home health care social worker at SNF for forms and assistance with application. They would not be able to provide primary caregiving or personal care, so would need to hire assistance or make arrangements. He shared that Dr. Flores had asked them at her last appointment, if she was ready to transition to hospice. At that point time they were quite surprised, but he does understand that she is declining and questions related to transition to hospice team were addressed and answered. Results - Lab Results Lab results reviewed: Yes Impression and Recommendations - Palliative Care Impression: Is a 73-year-old woman with worsening pulmonary hypertension/cor pulmonale, atrial fib with rapid ventricular response, and acute functional decline. She is currently at SNF for improvement in functional status, with the goal and hope to return home to some level of independence. She remains quite frail, with weight loss, anorexia, dyspnea, severe fatigue, and alterations in skin integrity. Palliative care to provide ongoing support and follow along, regarding transition planning and transition to hospice when appropriate. Recommendations/Counseling Done: 1. Anorexia. Patient does present with weight loss, though this is difficult to define given patient's lower extremity edema and recent CHF exacerbation. She has been started on Medipass, patient does have multiple likes and dislikes regarding food. She also has poor dentition and does report difficulty with choking and is at high aspiration risk. Call to [facility] speech therapist, regarding concerns with patient's swallow, and need for further direction and instruction both in the present and for transitioning home in the future. She will follow-up. 2. Dyspnea. This is multifactorial in origin, including her cor pulmonale/pulmonary hypertension, anemia, deconditioning, and acute on chronic heart failure. She continues to be quite symptomatic, she is pacing her activity, has her oxygen at 3 L. Counseling regarding patient's fears for air hunger and distress in future if worsens, provided education regarding us of morphine as tool if needed. 3. Acute on chronic pain management. Counseling provided regarding rationale for scheduled 3 times daily dosing of acetaminophen, as patient does have to ask and wait for extended periods of time. At this point in time, she wants to continue with as needed, she does understand this would be an option in the future if finds it is not working or effective. Currently she feels like acetaminophen does address her current level of discomfort, and pain. We will continue to monitor if may need something stronger. She has longstanding chronic back pain, worsening with sedentary status, and acute pain related to hematoma with expectation this will improved with resolution of bruising. 4. Advanced care planning. Patient quite anxious regarding conference, making sure brother is aware and included. Follow-up with [facility] social worker regarding pending conference, time is 11 tomorrow at . Call to brother regarding timing of conference, also address multiple questions regarding social security benefits interviewer and resources and financing. Brother given number in case needs further support. Patient does have POLST in place, she is quite pragmatic, is hoping as far as goals for improvement and transition back home prior to her end-of-life event. She is aware she is quite fragile, she still presents as a failure to thrive, and situation tenuous. Time Spent: 45 minutes with greater than 50% of this done in counseling regarding goals of care, did send correction regarding Protonix, is to be once daily not 3 times a day, clarified with hospital. Coordination of care with SNF staff and follow-up with brother who is assisting with transition planning.
== END 2019-06-04 20:17 | disposition home or self-care (01) ==
LOC: PC 20:16
PROVIDERS: ATTEND Nurse Practitioner Adult Health
DX: Z51.5 Encounter for palliative care (principal); R63.0 Anorexia; R63.4 Abnormal weight loss; R62.7 Adult failure to thrive; I27.81 Cor pulmonale (chronic); I27.21 Secondary pulmonary arterial hypertension; I50.33 Acute on chronic diastolic (congestive) heart failure; R13.10 Dysphagia, unspecified; K02.9 Dental caries, unspecified; I48.91 Unspecified atrial fibrillation; D50.0 Iron deficiency anemia secondary to blood loss (chronic); S70.12XD Contusion of left thigh, subsequent encounter; I95.9 Hypotension, unspecified; R23.8 Other skin changes; G89.29 Other chronic pain; M41.9 Scoliosis, unspecified; Z91.81 History of falling; Z66 Do not resuscitate; Z79.899 Other long term (current) drug therapy
CPT/HCPCS: 99310

== ENCOUNTER 2019-06-06 15:35 | Outpatient (CLI) | payer MEDICARE, OTHER ==
[2019-06-06 18:24] LABS: BASOPHILS # (AUTO) 0.1 10^3/uL (0.0-0.1); BASOPHILS % (AUTO) 1.1 %; EOSINOPHILS % (AUTO) 0.5 %; HGB - HEMOGLOBIN 9.7 g/dL (12.0-16.0); LYMPHOCYTES # (AUTO) 0.6 10^3/uL (1.5-3.5); LYMPHOCYTES % (AUTO) 13.4 %; MEAN CORPUSCULAR HEMOGLOBIN 33.1 pg (27.0-31.0); MEAN CORPUSCULAR HGB CONC 30.7 g/dL (32.0-36.0); MEAN CORPUSCULAR VOLUME 107.8 fL (81.0-99.0); MEAN PLATELET VOLUME 12.8 fL (7.9-10.8); MONOCYTES # (AUTO) 0.3 10^3/uL (0.0-1.0); MONOCYTES % (AUTO) 7.5 %; NEUTROPHILS # (AUTO) 3.4 10^3/uL (1.5-6.6); PLT - PLATELET COUNT 50 10^3/uL (130-450); RED BLOOD COUNT 2.93 10^6/uL (4.20-5.40); RED CELL DISTRIBUTION WIDTH 22.1 % (12.0-15.0); WHITE BLOOD COUNT 4.4 x10^3/uL (4.8-10.8)
[2019-06-06 18:29] LABS: CALCIUM 8.9 mg/dL (8.5-10.3); CREATININE 1.3 mg/dL (0.4-1.0)
[2019-06-06 20:54] LABS: PLATELET ESTIMATE, MANUAL DECREASED (<130,000) (NORMAL); PLATELET MORPHOLOGY NORMAL APPEARANCE (NORMAL)
== END 2019-06-06 23:59 | disposition home or self-care (01) ==
LOC: LAB.R 15:35
PROVIDERS: ATTEND Family Medicine
DX: I50.20 Unspecified systolic (congestive) heart failure (principal); D64.9 Anemia, unspecified
CPT/HCPCS: 80048; 85025